=== PATIENT | female | born 1945 | race Caucasian/White ===

== ENCOUNTER 2024-01-21 17:21 | Emergency (ER) | payer OTHER, SELFPAY ==
[2024-01-21 17:45] VITALS: BP 141/68
--- NOTE | 2024-01-21 17:51 | ED.MUSCINJ ---
HPI-Injury
<Sejal Thurston NP - Last Filed: 01/21/24 18:00>
General
Chief Complaint: Fall
Time Seen by Provider: 01/21/24 18:05
<Radha Donovan PA-C - Last Filed: 01/22/24 22:35>
General
Source: patient
Exam Limitations: none
Nursing documentation reviewed up to this point in time: agreed with
History of Present Illness-Injury
Initial Injury comments:
78 y/o F with mild dementia
htn
previous shoulder fracture, not treated surgically, pt refused
here with L facial pain and L shoulder pain/rib pain after fall today
mechanical tripped on carpet
no LOC
no AC
no neck pain
did not pass out, remembers the fall
jaw does not feel displaced
no trouble breathing, no syncope, no hip pain
able to get up and walk
has chronic shoulder fracutre
no weakness or numbness in the arms or legs
ED Provider Triage
<Sejal Thurston NP - Last Filed: 01/21/24 18:00>
-
Patient seen by provider in Triage?: Seen in Triage
Attestation: A medical screening examination has been initiated by a qualified medical provider. Based on the assessment performed at this time, it has been determined that an emergent medical condition may exist and the patient has been informed
that further medical evaluation and possible additional diagnostic testing may be needed.
HPI: 78-year-old female w h/o RA, previous left shoulder injury with limited ROM due to non healing correctly, left ear deafness, no blood thinners, HTN, states she tripped going into her friend's room at 4 p.m., at [facility]
living. Hit left side face on carpeted floor, injured left chest wall and left upper arm. Denies loss of consciousness. Was able to get herself up from floor. Denies neck or back pain has swelling and abrasion left side of face, upper cheek and
outer periorbital area. Denies change in vision. Denies n/v.
GENERAL: Alert , in no apparent distress
EYE: No visual abnormalities.
NECK: Trachea midline
ENT: No visible abnormalities.
LUNGS: No acute respiratory distress
NEUROLOGICAL: Alert and oriented
SKIN: Skin intact. No visible changes.
MUSCULOSKELETAL: Moving extremities normally
PSYCH: Normal and appropriate interaction.
This is a medical evaluation conducted in person to initiate diagnostic evaluation and provide initial therapeutics. Please see further documentation by the treating clinician.
Past History
<Radha Donovan PA-C - Last Filed: 01/22/24 22:35>
Past History
ED Past Medical History: HTN and Other (OA)
Review of Systems
<Radha Donovan PA-C - Last Filed: 01/22/24 22:35>
Review of Systems
Allergies reviewed?: Yes
Phy Exam
<Radha Donovan PA-C - Last Filed: 01/22/24 22:35>
Physical Exam
Physical Exam:
GENERAL: Alert , in no apparent distress
HEAD: no head injury
face: L maxillary/zygomatic swelling and bruising an dtendrness
suprerficial abrasion, no laceration
NECK: no midline tenderness, active ROM intact, no paraspinal muscle tenderness;
EYE: pupils equal and reactive, EOMs intact.
ENT: o/p clr, mmm. no hemotympanum
CARDIAC: Regular rate and rhythm, no edema
LUNGS: Clear breath sounds bilaterally, no acute respiratory distress, no wheezes/rales/rhonchi
ribs: slight left lateral rib tendenress, no bruising, no redness, able to take deep breaths, no splinting
ABDOMEN: Soft, without focal tenderness, no r/g, no cvat
NEUROLOGICAL: Alert and oriented, no focal neuro deficits, CN intact, 5/5 strength, sensation intact
SKIN: Warm and dry,
bruising L arm (humerus)
MUSCULOSKELETAL: L shoulder dec mobiilty, no obvious deformity; some crunching with movement; normal elbow
hips notnender
back midline nontender
no cva tendenress
PSYCH: Normal and appropriate interaction.
Injury Course
<Sejal Thurston NP - Last Filed: 01/21/24 18:00>
Orders/Labs/Results
Orders:
Orders
01/21/24 17:53
CT Facial Bones W/o Iv Contras Urgent
Comment:
Reason For Exam: fall, pain, swelling left cheek, orbit
01/21/24 17:58
Humerus, Left 2 Views [CR Humerus - Left Min 2 Views*] Urgent
Comment:
Reason For Exam: pain after fall
Ribs, Left 3 View W/PA Chest CR [CR Ribs-left 3 Vw W/pa Chest] Urgent
Comment:
Reason For Exam: pain after fall
01/21/24 17:59
Knee, Left 4 or More Views [CR Knee - Left 4 Or More View*] Urgent
Comment:
Reason For Exam: pain after fall
01/21/24 18:13
CT Head W/o Iv Contrast Urgent
Comment:
Reason For Exam: fall hit head
01/21/24 19:12
CR Shoulder, Trauma - Left Urgent
Reason For Exam: left shoulder pain fall
01/21/24 19:16
Ibuprofen [Motrin] 400 mg PO NOW STA
<Radha Donovan PA-C - Last Filed: 01/22/24 22:35>
Orders/Labs/Results
Orders:
Orders
01/21/24 17:53
CT Facial Bones W/o Iv Contras Urgent
Comment:
Reason For Exam: fall, pain, swelling left cheek, orbit
01/21/24 17:58
Humerus, Left 2 Views [CR Humerus - Left Min 2 Views*] Urgent
Comment:
Reason For Exam: pain after fall
Ribs, Left 3 View W/PA Chest CR [CR Ribs-left 3 Vw W/pa Chest] Urgent
Comment:
Reason For Exam: pain after fall
01/21/24 17:59
Knee, Left 4 or More Views [CR Knee - Left 4 Or More View*] Urgent
Comment:
Reason For Exam: pain after fall
01/21/24 18:13
CT Head W/o Iv Contrast Urgent
Comment:
Reason For Exam: fall hit head
01/21/24 19:12
CR Shoulder, Trauma - Left Urgent
Reason For Exam: left shoulder pain fall
01/21/24 19:16
Ibuprofen [Motrin] 400 mg PO NOW STA
<Radha Donovan PA-C - Last Filed: 01/22/24 22:35>
MDM/Problems Addressed
Differential Diagnosis Includes:
rib contusion, rib fracture, facial fracture, contusion, head injury
MDM/Problems Addressed:
78 y/o F
very mild forgetfulness baseline
had mechanical trip and fall around 4pm onto carpet and hit her face and has [place] in her face, left shoulder (chronic from old fracture not surically trated), left ribs and left knee
able to walk
no thinners
no change in mental status, here with daughters who agree
pt has some faical swelling L zygomatic region
normal bite
no hemotympanum
neck nontender full painless rom
L mild rib pain but not signiviant, able to take deep breaths
left humerus mild bruising
limited motion of the shoulder
has chroinc deformity/fracture which is severe, likely old; cxr indep reviewed by me
ct head/face neg
ribs neg for ptx/fx
left knee no fx
ice off and on
return precautions
incentive spiroetry
<Radha Donovan PA-C - Last Filed: 01/22/24 22:35>
*Critical Care Note
Total Time (30-74mins, 75-104mins- exclusive of procedures): Not Applicable
ED Attending Note
<Sejal Thurston NP - Last Filed: 01/21/24 18:00>
-
Portions of this chart may have been created with voice recognition software.� Occasional wrong word or��sound alike� substitutions may have occurred due to the inherent limitations of voice recognition software.
Discharge Plan
Departure
Patient Disposition: Home (Routine Discharge)
Date of Disposition: 01/21/24
Time of Disposition: 21:03
Patient with high blood pressure during this ER visit?: Yes
Condition: Fair
Covid-19: Not Applicable
Discharge Problem:
Fall, chronic shoulder fracture, Contusion of face, Contusion of rib
Instructions: Contusion (DC), Rib fracture or bruised rib - ED discharge instructions, BLOOD PRESSURE
Referrals:
Jun Gabriel MD [Family Provider] - Follow up in 2-3 days
Activity Restrictions/Additional Instructions:
THERE IS NO SIGN OF FRACTURE IN YOUR FACIAL BONES, RIBS, OR KNEE
YOU HAVE A CHRONIC APPEARING FRACTURE IN YOUR SHOULDER
TAKE IBUPROFEN FOR PAIN 2 TIMES A DAY
ICE OFF AND ON TO YOUR FACE
MAKE SURE TO USE THE INCENTIVE SPIROMETER TO TAKE DEEP BREATHS A FEW TIMES EVERY 2 HOURS TO PREVENT PNEUMOMNIA
FOLLOW UP WITH YOUR DOCTOR THIS WEEK
YOUR SHOULDER IS CHRONICALLY SEVERELY FRACTURED; WE DO NOT HAVE THE OLD IMAGES TO COMPARE
FOLLOW UP WITH ORTHOPEDICS [facility]
RETURN FOR ANY CONCERNS
Interventions
Interventions:
*General Assessment Last Done: 01/21/24 17:45
ED- Fall Risk Assessment Last Done: 01/21/24 19:13
*ED COVID-19 Vaccine History Last Done: 01/21/24 19:04
*Nursing Disposition Last Done: 01/21/24 21:19
ED-Musculoskeletal Assessment Last Done: 01/21/24 19:10
ED- Neurological Assessment Last Done: 01/21/24 19:04
ED-Skin Assessment Last Done: 01/21/24 19:23
Discharge Date and Time
Discharge Date/Time: 01/21/24 21:22
Print Language: BELGIAN
[2024-01-21 19:01] VITALS: BP 162/73; BMI 23.8
[2024-01-21] MEDS: MOTRIN 400 MG PO (20:07)
== END 2024-01-21 21:22 | disposition home or self-care (01) ==
LOC: EMR 17:21
PROVIDERS: EMERGENCY PHYSICIAN Emergency Medicine; FAMILY PHYSICIAN Internal Medicine
DX: S42.92XA Fracture of left shoulder girdle, part unspecified, initial encounter for closed fracture (principal); S00.83XA Contusion of other part of head, initial encounter; S20.219A Contusion of unspecified front wall of thorax, initial encounter; W19.XXXA Unspecified fall, initial encounter; M25.512 Pain in left shoulder; F03.A0 Unspecified dementia, mild, without behavioral disturbance, psychotic disturbance, mood disturbance, and anxiety; I10 Essential (primary) hypertension
CPT/HCPCS: 99284; 70450; 70486; 71101; 73030; 73060; 73564

== ENCOUNTER 2024-02-06 12:43 | Inpatient (IN) | payer OTHER, SELFPAY ==
[2024-02-06] VITALS (45 sets, daily range): BP systolic 91–137; BP diastolic 62–96; BMI 24.5; BMI 22.5
--- NOTE | 2024-02-06 08:19 | ED.GENMED ---
History of Present Illness
General
Chief Complaint: Breathing Problem
Time Seen by Provider: 02/06/24 08:15
History of Present Illness
History of Present Illness:
TIME OF INITIAL ENCOUNTER:
HPI: The patient's been having a general functional decline over the last couple of weeks after a fall. Main symptom is shortness of breath but the shortness of breath has been going on for a few weeks. She is found to be in rapid atrial flutter
upon arrival. She has no history of atrial dysrhythmia. She does not see a pick up. Family was concerned of dehydration.
EXAM:
GENERAL: Well appearing in no distress but appears somewhat weak
HEENT: Moist oral mucosa
CARDIOVASCULAR: No murmurs, tachycardic heart rate, regular rhythm, No chest wall tenderness
PULMONARY: No respiratory distress, breath sounds are clear and equal
ABDOMEN: Soft with no peritoneal signs, no tenderness
NEUROLOGIC: Fair strength all extremities, no coordination deficits
PSYCHIATRIC: Appropriate mental status, normal insight and judgement
EXTREMITIES: Nontender, trace bilateral lower extremity edema, moves all extremities equally
SKIN: No rash, no lesions
NUMBER AND COMPLEXITY OF PROBLEMS ADDRESSED AT THE ENCOUNTER
� Chronic conditions affecting care: Pulmonary fibrosis, hep C/cirrhosis, high blood pressure, rheumatoid arthritis
� Acute Exacerbation and/or Progression of Chronic Illness: This is an acute problem
� Differential Diagnosis includes: Atrial dysrhythmia, worsening pulmonary fibrosis, electrolyte abnormality
AMOUNT AND/OR COMPLEXITY OF DATA TO BE REVIEWED AND ANALYZED
� I performed an independent evaluation of and my interpretation is:
EKG: Atrial tachycardia/atrial flutter with ventricular rate of 143
CT:
X-rays: Chest x-ray shows pulmonary fibrosis
Laboratory Studies: White count 8.9, hemoglobin 10.6 with no old to compare
Other:
� Review of other/old records: I reviewed records, the patient had a CAT scan of the face and head 01/21/2024 which were unremarkable; left shoulder deformity on x-ray is chronic over the past year
� Clinical information was obtained by an independent historian: Spoke to daughter
� Prescriptions/Medications Considered but not given:
� Further testing considered but not performed:
RISK OF COMPLICATIONS AND/OR MORBIDITY OR MORTALITY OF PATIENT MANAGEMENT
� Social determinants of health affecting care: Lives at home
� Discussion with other providers: Notify Dr. Garrett of patient's presentation. Planning admission to the hospital�notified Dr. Card
� Escalation of care including admission/observation vs risk of discharge considered: Heart rates found to be in the 140s. She appears to be in atrial flutter. She was given a bolus of Cardizem without much improvement. She
was then given a dose of Lopressor which did improve the heart rates anywhere from the 80s to 120s.
ANY OTHER UPDATES:
10:20 AM: She is found to be hyponatremic.
10:30 AM: Intermittently responding to beta-becka. No significant improvement with calcium channel becka.
Past History
Past History
ED Past Medical History: HTN and Other (OA)
Phy Exam
Physical Exam
Physical Exam:
See HPI
Scores
Heart Failure Risk
Heart Failure Risk Score: Not Applicable
Course
Orders/Labs/Results
Orders:
Orders
02/06/24 08:13
ECG [Electrocardiogram (*1)] Urgent
Reason for Study: Shortness of Breath
EKG- Treatment ONCE
02/06/24 09:04
Complete Blood Count/With Diff Urgent
Comprehensive Metabolic Panel Urgent
Magnesium Urgent
NT-proBNP Urgent
Comment: ADD
Serum Osmolality Urgent
Comment: ADD
TSH Reflex To Free T4 Urgent
Troponin I Urgent
02/06/24 09:07
Diltiazem 125 mg/125 ml Nss [Cardizem] 125 mg in 125 ml .ROUTE .STK-MED
Diltiazem HCl [Cardizem] 25 mg .ROUTE .STK-MED ONE
02/06/24 09:12
Diltiazem HCl [Cardizem] 10 mg IV NOW STA
02/06/24 09:19
Metoprolol [Lopressor] 5 mg .ROUTE .STK-MED ONE
02/06/24 09:21
Metoprolol [Lopressor] 2.5 mg 0.9% Sodium Chloride 50 ml [Nss] 50 ml IV NOW
02/06/24 09:22
Metoprolol [Lopressor] 2.5 mg IV NOW STA
02/06/24 09:30
Diltiazem 125 mg/125 ml Nss [Cardizem] 125 mg in 125 ml IV PER PROTOCOL
Currently infusing. Continue current dose and titrate:: Yes
Titrate to keep:: Heart rate 80-100 bpm
Titrate by mg/hr:: 5 mg/hr
Frequency of titrations (minutes):: 15
Maximum dose in mg/hr:: 15
02/06/24 09:58
Add On- LAB Urgent
Tests Added?: bnp
CR Chest Portable - 1 View Urgent
Comment:
Reason For Exam: sob
Reason Study Needs to be Portable: Patient Unstable
02/06/24 10:00
Add On- LAB Urgent
Tests Added?: serum osm
02/06/24 10:01
0.9% Sodium Chloride 500 ml [Nss] 500 ml IV BOLUS
Ondansetron Injectable [Zofran] 4 mg IV NOW STA
02/06/24 10:21
Metoprolol [Lopressor] 2.5 mg IV NOW STA
Metoprolol [Lopressor] 2.5 mg IV NOW STA
02/06/24 11:22
Osmolality, Random Urine Urgent
Date Specimen was Collected: 02/06/24
Time Specimen was Collected: 10:29
Urinalysis Reflex To Culture Urgent
Date Specimen was Collected: 02/06/24
Time Specimen was Collected: 11:21
Urine Sodium Urgent
Date Specimen was Collected: 02/06/24
Time Specimen was Collected: 10:29
02/06/24 11:26
COVID-19 Antigen Urgent
Source: Nasal Swab
INF RAPID [Influenza A+B Rapid Molecular] Urgent
TAWANNA Source: Nasal Swab
Specimen Description:
02/06/24 11:30
Admit/Transfer Patient As Directed
Co-Sign Provider:
Level of Care: Inpatient admission
Assign to:: IMU- Intermediate Care
Physician / Group: Dr Garcia
Diagnosis: Dr Garcia
Reason for Hospitalization: patient with pulm fibrosis p/w sob and tachycardia.
Expected length of stay greater than two midnights?: Yes
ELOS- Estimated Length of Stay in days: 2
I certify the patient meets the requirements for IP care: Yes
02/06/24 11:31
Add On- LAB Urgent
Tests Added?: UA reflex to culture
PRN Pain Medication Management As Directed
May give lesser potent ordered pain med per pt: Yes
preference::
Protocol:: Medication orders for pain may be administered in a
manner that supports deferring to patient preference
when the pt is:
- Requesting an ordered lesser potent pain medication.
Least to most potent pain medications are defined
as: acetaminophen < NSAID < tramadol < opioids
(morphine, oxycodone, hydromorphone).
- Requesting a lesser dose of the same medication IF
ORDERED.
- Requesting a less intrusive route of administration
if both routes are prescribed by the provider (PO <
IV).
02/06/24 11:34
Code Status As Directed
Resuscitation Status: Full Code
02/06/24 11:36
Influenza A+B Rapid Molecular Routine
TAWANNA Source: Nasal Swab
Specimen Description:
02/06/24 11:37
CARDIOLOGY CONSULT Routine
Consulting Provider: Donald Garrett
Was physician already notified: Yes
Reason for consult: Tachycardia A fib vs Sinus tach/SVT and Dyspnea eval
02/06/24 11:38
PULMONARY CONSULT Routine
Consulting Provider: Ramiro Kaye
Was physician already notified: Yes
Reason for consult: Pulm fibrosis ?pna eval
02/06/24 11:40
NEPHROLOGY CONSULT Routine
Consulting Provider: Arturo Muñoz
Was physician already notified: Yes
Reason for consult: Hyponatremia eval
02/06/24 11:44
Furosemide [Lasix] 40 mg IV NOW STA
02/06/24 11:45
Blood Culture Q30M
TAWANNA Source: Blood/Venous
Specimen Description:
02/06/24 12:00
CefTRIAXone [Rocephin] 1,000 mg IV Q24H
Dexamethasone Sod Phosphate [Decadron] 4 mg IV Q6H
Doxycycline [Vibramycin] 100 mg PO Q12
Sterile Water [Sterile Water For Injection] 10 ml IV Q24H
02/06/24 12:15
Blood Culture Q30M
TA[place]ANNA Source: Blood/Venous
Specimen Description:
02/06/24 13:00
Flush (0.9% Sodium Chloride) [Flush (Nss)] See Dose Instructions IV PER PROTOCOL
Abnormal Lab Results
02/06/24 02/06/24
09:04 11:22
RBC 3.59 L 10^6/uL
(4.20-5.40)
Hgb 10.6 L g/dL
(12.0-16.0)
Hct 31.5 L %
(37.0-47.0)
Absolute Neuts (auto) 7.4 H 10^3/uL
(1.4-6.5)
Absolute Lymphs (auto) 0.5 L 10^3/uL
(1.2-3.4)
Absolute Monos (auto) 0.9 H 10^3/uL
(0.1-0.6)
Neutrophils % 82.9 H %
(42.2-75.2)
Lymphocytes % 5.5 L %
(20.5-51.1)
Monocytes % 9.6 H %
(1.7-9.3)
Sodium 120 L mmol/L
(135-145)
Chloride 88 L mmol/L
(98-107)
Carbon Dioxide 21 L mmol/L
(22-30)
Creatinine 0.4 L mg/dL
(0.6-1.0)
Glucose 100 H mg/dl
(70-99)
Serum Osmolality 255 L mOsm/kg
(275-300)
Calcium 8.2 L mg/dl
(8.4-10.2)
Urine Ketones 1+ A
(Negative)
Urine Sodium 15 L mmol/L
(30-90)
02/06/24 09:04
02/06/24 09:04
Vital Signs
Initial and Last Documented VS:
Initial Vital Signs
Temp Pulse Resp BP Pulse Ox
36.6 C 143 24 125/78 97
02/06/24 08:08 02/06/24 08:08 02/06/24 08:08 02/06/24 08:08 02/06/24 08:08
Last Documented Vital Signs
Temp Pulse Resp BP Pulse Ox
36.6 C 137 23 121/84 95
02/06/24 08:08 02/06/24 12:00 02/06/24 12:00 02/06/24 12:00 02/06/24 12:00
*Critical Care Note
Total Time (30-74mins, 75-104mins- exclusive of procedures): Not Applicable
ED Attending Note
-
Portions of this chart may have been created with voice recognition software.� Occasional wrong word or��sound alike� substitutions may have occurred due to the inherent limitations of voice recognition software.
Discharge Plan
Departure
Patient Disposition: Admit
Date of Disposition: 02/06/24
Time of Disposition: 10:36
Presentation/result/management discussed w/ accepting MD/DO: Hospitalist
Discharge Problem:
Acute hyponatremia
Prescriptions:
No Action
sulfasalazine 500 mg tablet
1,000 mg PO BID
amlodipine 5 mg tablet
5 mg PO DAILY
mycophenolate mofetil 500 mg tablet
1,500 mg PO BID
hydroxychloroquine 200 mg tablet
400 mg PO DAILY
losartan 100 mg tablet
100 mg PO DAILY
furosemide 20 mg Tablet
20 mg PO DAILY
Referrals:
Jun Gabriel MD [Family Provider] -
Interventions
Interventions:
*Risk Screen - Suicide Last Done: 02/06/24 08:08
*General Assessment Last Done: 02/06/24 08:08
*Neglect/Abuse Screening Last Done: 02/06/24 08:08
*ED COVID-19 Vaccine History Last Done: 02/06/24 09:29
ED- Cardiac Assessment Last Done: 02/06/24 09:30
ED- Pulmonary Assessment Last Done: 02/06/24 09:30
Discharge Date and Time
Print Language: TAIWANESE
[2024-02-06] MEDS: CARDIZEM 10 MG IV (09:12)
[2024-02-06 09:22] LABS: % Basophils 0.9 % (0-2); % Eosinophils 0.8 % (0-6); % Immature Granulocytes 0.3 % (0-0.5); % Lymphocytes 5.5 % (20.5-51.1); % Monocytes 9.6 % (1.7-9.3); % Neutrophils 82.9 % (42.2-75.2); Absolute Basophils 0.1 10^3/uL (0-0.2); Absolute Eosinophils 0.1 10^3/uL (0-0.7); Absolute Lymphocytes 0.5 10^3/uL (1.2-3.4); Absolute Monocytes 0.9 10^3/uL (0.1-0.6); Absolute Neutrophils 7.4 10^3/uL (1.4-6.5); Hematocrit 31.5 % (37.0-47.0); Hemoglobin 10.6 g/dL (12.0-16.0); Mean Corp Hgb Conc. 33.7 g/dL (33.0-37.0); Mean Corpuscular Hgb 29.5 pg (27.0-31.0); Mean Corpuscular Volume 87.7 fL (81.0-99.0); Mean Platelet Volume 9.7 fL (7.4-10.4); Nucleated Red Blood Cells % 0 %; Platelet Count 361 10^3/uL (130-400); Red Blood Cell Count 3.59 10^6/uL (4.20-5.40); Red Cell Dist. Width 14.3 % (11.5-14.5); White Blood Cell Count 8.9 10^3/uL (4.8-10.8)
[2024-02-06] MEDS: LOPRESSOR 2.5 MG IV ×4 (09:22→23:37)
[2024-02-06] MEDS: CARDIZEM 125 IV (09:39)
[2024-02-06 09:45] LABS: ALT (SGPT) 14 U/L (0-35); AST (SGOT) 25 U/L (14-36); Albumin 3.8 g/dl (3.5-5.0); Alkaline Phosphatase 111 U/L (38-126); Blood Urea Nitrogen 14 mg/dl (7-17); Calcium 8.2 mg/dl (8.4-10.2); Carbon Dioxide 21 mmol/L (22-30); Chloride 88 mmol/L (98-107); Estimated Creatinine Clearance 74 ml/min; Glucose 100 mg/dl (70-99); Magnesium 1.9 mg/dl (1.6-2.3); Potassium 4.7 mmol/L (3.5-5.1); Sodium 120 mmol/L (135-145); Total Bilirubin 0.6 mg/dl (0.2-1.3); Total Protein 6.6 g/dl (6.3-8.2); eGFR > 60.00
[2024-02-06 09:54] LABS: Troponin I < 0.012 ng/ml
[2024-02-06 10:13] LABS: TSH Reflex To Free T4 2.55 uIU/ml (0.47-4.68)
[2024-02-06] MEDS: NSS 500 IV (10:20)
[2024-02-06 10:58] LABS: Osmolality Serum 255 mOsm/kg (275-300)
[2024-02-06 10:59] LABS: NT-proBNP 1650 pg/ml
--- NOTE | 2024-02-06 11:40 | HPS.HSE ---
Addendum entered and electronically signed by Truman Garcia MD 02/06/24 16:40:
Cardiology recommended cont Cardizem drip and start on heparin drip for A flutter/fib RVR.
Original Note:
Family Physician
-
Family Physician: Jun Gabriel
Chief Complaint
-
sob
History of Present Illness
Patient 79 years old female with past medical history of pulmonary fibrosis, rheumatoid arthritis, cirrhosis, hypertension, came into the hospital with shortness of breath nausea and vomiting. Patient has been not feeling well over the last couple
of days with nausea and vomiting and patient has been feeling 'winded' over the last several days as well and more pronounced today. Patient feels short of breath progressively getting worse associated with short amount of walking distances
associated with lower extremity edema. No chest pain. She does have dry cough. She denies fevers or chills. Denies abdominal pain. Denies diarrhea. In the ER, she was noted to be tachycardic and she was given beta-blockers and also calcium
channel blockers with mild improvement of her heart rate. Blood pressure stable. She was also noted to have a sodium of 120 and BNP of 1650 and troponin less than 0.012. Found to have abnormal chest x-ray. She was referred to hospitalist service
for further evaluation.
Medical History
Past Medical History
Past Medical History: Reports Other (Hypertension, rheumatoid arthritis, liver cirrhosis, autoimmune hepatitis, hepatitis C, mild cognitive deficits, pulmonary fibrosis.)
Past Surgical History: Reports None
Social History
Tobacco: Former Smoker
Alcohol: None
Drug: None
Family History
Family History: Not pertinent
Allergies / Home Medications
Allergies reflects when Allergies were last updated in [facility].
Home Medications with original date entered in [facility]
Allergy/Medication List:
Allergies
Allergy/AdvReac Type Severity Reaction Status Date / Time
No Known Allergies Allergy Verified 02/06/24 08:08
Home Medications
amlodipine 5 mg tablet 5 mg PO DAILY Blood Pressure 02/06/24
furosemide 20 mg tablet 20 mg PO DAILY Fluid Retention/Swelling 02/06/24
hydroxychloroquine 200 mg tablet 400 mg PO DAILY Autoimmune Disorder 02/06/24
losartan 100 mg tablet 100 mg PO DAILY Blood Pressure 02/06/24
mycophenolate mofetil 500 mg tablet 1,500 mg PO BID Autoimmune Disorder 02/06/24
sulfasalazine 500 mg tablet 1,000 mg PO BID Autoimmune Disorder 02/06/24
Review of Systems
-
A 12 point ROS was completed and negative except as noted: Yes
Physical Exam
Vital Signs
Vital Signs
Temp Pulse Resp BP Pulse Ox
97.9 F 137 23 121/88 97
02/06/24 08:08 02/06/24 11:30 02/06/24 11:30 02/06/24 11:30 02/06/24 11:15
Physical exam:
General: Acutely ill
HEENT: Normocephalic, Atraumatic and Moist Mucous Membranes
Respiratory: Bilateral coarse crackles; Negative Wheezes or Rhonchi
Cardiac: Irregular rate and rhythm, tachycardic, and S1/S2
GI: Soft, Nontender and Nondistended
Musculoskeletal: No Clubbing, No Cyanosis. B/L LE Edema
Neuro: Awake, Alert and Oriented, no gross neurological deficit
Psych: Calm
Physical Exam
General: Other
Laboratory Results
-
02/06/24 09:04
02/06/24 09:04
Laboratory Results
Total Bilirubin 0.6 mg/dl (0.2-1.3) 02/06/24 09:04
AST 25 U/L (14-36) 02/06/24 09:04
ALT 14 U/L (0-35) 02/06/24 09:04
Alkaline Phosphatase 111 U/L (38-126) 02/06/24 09:04
Troponin I < 0.012 ng/ml 02/06/24 09:04
Data Reviewed
-
Diagnostic Radiology: Image Personally Visualized and interpreted
Lab Data: Labs Reviewed by me
Impression/Plan
-
IMPRESSION:
Patient 79 years old female with multiple comorbidities came into the hospital with dyspnea and nausea and vomiting and found to have tachyarrhythmia and multiple acute abnormalities. Patient at increased risk of morbidity mortality due to acute
presentation and comorbidities therefore she will need to be treated in the hospital and monitor accordingly.
PLAN:
Dyspnea/hypoxic respiratory insufficiency:
Unclear etiology but suspect multifactorial related to pneumonia,underlying pulmonary fibrosis, tachyarrhythmia, and heart failure
Seen and reviewed chest x-ray
Start IV dexamethasone 4 mg every 6 hours for now
Obtain blood cultures
Start empiric antibiotics IV Rocephin and doxycycline
Diuretics as needed--> plan doing IV Lasix 40 mg x 1 and reevaluate
Pulmonary consult-discussed with pulmonary via [place] text
Tachyarrhythmias:
A flutter/A-fib with rapid ventricular response versus sinus tachycardia/atrial tachycardia.
Continue targeting pulmonary issues at first
Rate control as tolerated
Cardiology consult-discussed with cardiology via [place] text
Severe hyponatremia:
Unclear if hypervolemia or hypovolemia although suspect the former
Follow-up urine sodium and urine osmolarity and serum osmolarity
Nephrology consult-discussed with nephrology via [place] text today
I was going to give IV Lasix today but nephrology would like me to hold off until further testing and reevaluate.
Nausea and vomiting:
Suspect viral gastroenteritis
Monitor for recurrent symptoms
Encourage oral hydration for now but will reevaluate
Anemia:
No signs of active bleeding
Continue to monitor hemoglobin closely
Hypertension:
Continue amlodipine furosemide and losartan with holding parameters
Monitor blood pressure adjust medications accordingly
Rheumatoid arthritis/pulmonary fibrosis/autoimmune hepatitis with liver cirrhosis:
Continue mycophenolate 1500 mg twice a day and hydroxychloroquine 400 mg p.o. daily and sulfasalazine 1000 mg twice a day
DVT prophylaxis:
Lovenox SQ
CODE STATUS:
Full code
Time spent 75 minutes
[2024-02-06 11:47] LABS: Osmolality Urine 482 mOsm/kg (300-900)
[2024-02-06 11:48] LABS: Urine Albumin Trace (Neg - Trace); Urine Bilirubin Negative (Negative); Urine Character Clear (Clear); Urine Color Amber; Urine Glucose Negative (Negative); Urine Ketone 1+ (Negative); Urine Leukocyte Negative (Negative); Urine Nitrite Negative (Negative); Urine Occult Blood Negative (Negative); Urine Specific Gravity 1.025 (<1.030); Urine Urobilinogen Negative (Neg - 1+)
[2024-02-06 11:51] LABS: COVID-19 Antigen Negative (Negative)
[2024-02-06 12:01] LABS: Urine Sodium 15 mmol/L (30-90)
[2024-02-06] MEDS: ROCEPHIN 1000 MG IV (13:55)
[2024-02-06] MEDS: DECADRON 4 MG IV ×3 (13:55→23:37)
[2024-02-06] MEDS: STERILE WATER FOR INJECTION 10 ML IV (13:56)
[2024-02-06] MEDS: VIBRAMYCIN 100 MG PO ×2 (13:56→20:31)
--- NOTE | 2024-02-06 14:23 | W.CON.NEPH ---
Consultation
-
Date/Time Consultation Requested: February 06, 2024 at 11:30 AM
Date/Time Consultation Performed: February 06, 2024 at 2:30 PM
Requesting Provider: Dr. Garcia
Performing Provider: Dr. Arturo Muñoz
Reason for Consultation: hyponatremia
Medical History
-
Chief Complaint: hyponatremia with nausea vomiting
History of Present Illness:
79 years old female with past medical history of pulmonary fibrosis, rheumatoid arthritis, cirrhosis, hypertension, came into the hospital with shortness of breath nausea and vomiting. Patient's daughter was at the bedside to help with history as
she is having difficulty with memory.
renal consult for hyponatremia 120
recent history had a fall about two weeks ago she lost her balance. She appears to take NSAIDs on a chronic basis at least three times per week sometimes more. Since the fall two weeks ago she's been declining clinically per daughter.
her daughter informed me that she was told by her tilesetter that potassium was lower early January but unable to quantify
Past Medical History
pulmonary fibrosis, rheumatoid arthritis, cirrhosis secondary to autoimmune hepatitis, hypertension,
Social History
non-smoker no alcohol used
Family History
no renal disease
Allergies / Home Medications
Allergy/AdvReac Type Severity Reaction Status Date / Time
No Known Allergies Allergy Verified 02/06/24 08:08
�Medication �Instructions �Recorded �Confirmed �Type
amlodipine 5 mg tablet 5 mg PO DAILY Blood Pressure 02/06/24 02/06/24 History
furosemide 20 mg tablet 20 mg PO DAILY Fluid 02/06/24 02/06/24 History
Retention/Swelling
hydroxychloroquine 200 mg tablet 400 mg PO DAILY Autoimmune Disorder 02/06/24 02/06/24 History
losartan 100 mg tablet 100 mg PO DAILY Blood Pressure 02/06/24 02/06/24 History
mycophenolate mofetil 500 mg tablet 1,500 mg PO BID Autoimmune Disorder 02/06/24 02/06/24 History
sulfasalazine 500 mg tablet 1,000 mg PO BID Autoimmune Disorder 02/06/24 02/06/24 History
Review of Systems
-
shortness of breath, decreased appetite
All other systems: Negative unless noted
Physical Exam
Vital Signs
Vital Signs
Temp Pulse Resp BP Pulse Ox
97.9 F 138 25 121/90 96
02/06/24 08:08 02/06/24 13:00 02/06/24 13:00 02/06/24 13:00 02/06/24 13:00
Lab Results
WBC 8.9 10^3/uL (4.8-10.8) 02/06/24 09:04
RBC 3.59 10^6/uL (4.20-5.40) L 02/06/24 09:04
Hgb 10.6 g/dL (12.0-16.0) L 02/06/24 09:04
Hct 31.5 % (37.0-47.0) L 02/06/24 09:04
Plt Count 361 10^3/uL (130-400) 02/06/24 09:04
Sodium 120 mmol/L (135-145) L 02/06/24 09:04
Potassium 4.7 mmol/L (3.5-5.1) 02/06/24 09:04
Chloride 88 mmol/L (98-107) L 02/06/24 09:04
Carbon Dioxide 21 mmol/L (22-30) L 02/06/24 09:04
BUN 14 mg/dl (7-17) 02/06/24 09:04
Creatinine 0.4 mg/dL (0.6-1.0) L 02/06/24 09:04
eGFR > 60.00 02/06/24 09:04
Glucose 100 mg/dl (70-99) H 02/06/24 09:04
Calcium 8.2 mg/dl (8.4-10.2) L 02/06/24 09:04
Jua-X-Iwlhwfznhlx Pept 1650 pg/ml 02/06/24 09:04
Albumin 3.8 g/dl (3.5-5.0) 02/06/24 09:04
Physical Exam
General no acute distress
HEENT no cephalic atraumatic extraocular muscle intact no scleral icterus no JVD neck supple
lungs rhonchi
heart regular S1-S2 positive
abdomen soft nontender positive bowel sounds
extremities edema plus one bilateral
Neurologically nonfocal alert and oriented x 3
Skin no lesions no abrasions no petechiae
Psych normal affect no bizarre behavior
Data Reviewed
-
Radiology: Image Personally Visualized and interpreted ( pulmonary fibrosis with small infiltrate)
Labs: Labs Reviewed by me
Assessment/Plan
-
79 years old female with past medical history of pulmonary fibrosis, rheumatoid arthritis, cirrhosis, hypertension, came into the hospital with shortness of breath nausea and vomiting. Patient's daughter was at the bedside to help with history as
she is having difficulty with memory.
renal consult for hyponatremia 120
recent history should a fall about two weeks ago she lost her balance. She appears to take NSAIDs on a chronic basis at least three times per week sometimes more. Since the fall two weeks ago she's been declining clinically per daughter.
her daughter informed me that she was told by her tilesetter that potassium was lower early January but unable to quantify
impression:
hyponatremia.
Chronic pulmonary fibrosis.
Nausea vomiting.
Chronic pain status post left shoulder fracture previous two most recent fall with chronic NSAID use
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
plan:
she status post 500 mL of normal saline in the ER
Montserrat < 15 with urine osmolality of 482
Admitting sodium 120 appears to be secondary to a decrease PO intake.
will hold Lasix despite some mild edema/ BNP 1600 Does not appear to be an heart failure
BMP Q4 hours with avoiding overcorrection 6-8 mEq the first 24 hours
bmp now
will follow
please call if serum sodium corrects to greater than 126 by tomorrow morning
discussed with primary hospitalist
--- NOTE | 2024-02-06 15:40 | CON.CAR ---
Consultation
Consultation Request
Date/Time Consultation Requested: February 06, 2024
Date/Time Consultation Performed: February 06, 2024
Requesting Provider: Dr Garcia
Performing Provider: Dr Garrett
Reason for Consultation: Atrial flutter
Medical History
-
Chief Complaint: Failure to thrive, dyspnea
History of Present Illness:
She is an 79-year-old white female with past medical history of pulmonary fibrosis, rheumatoid arthritis, hepatitis C/cirrhosis, hypertension, osteoporosis who presents with progressive weakness and feeling poorly over the last few days. She also
had nausea vomiting and some dyspnea on exertion that was apparently more significant over the last 24 hours. She admits to a dry cough. She denies chest pain. In the emergency room she was found to be tachycardic with atrial flutter heart rate
130s to 140s. She received IV Cardizem and IV beta-blockers with some improvement in her heart rate. Her blood pressures remained stable. She was noted to be hyponatremic with sodium 120, proBNP was 1650 troponin was negative. Chest x-ray was
abnormal showing chronic bilateral interstitial pulmonary opacities consistent with chronic fibrosis with possible superimposed aspiration/pneumonia. No pleural effusion. Cardiology was consulted given her arrhythmia. Her daughter helps with
history. The patient lives in [facility].
Her daughter states she had an echo in July 2023 at [facility] for a heart murmur. Results are unavailable.
Past medical history:
Pulmonary fibrosis
Rheumatoid arthritis
Hepatitis C/cirrhosis
Hypertension
Osteoporosis
Detached retina
Appendectomy
Mild cognitive defect
Social History
Tobacco: Former Smoker (She quit 50 years ago)
Alcohol: None
Drug: None
Living: Assisted Living ([facility] in [place])
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
Family History
Family History: Reviewed & Not Pertinent (Sister had an aortic valve issue and age 83)
Allergies / Home Medications
Allergy/AdvReac Type Severity Reaction Status Date / Time
No Known Allergies Allergy Verified 02/06/24 08:08
�Medication �Instructions �Recorded �Confirmed �Type
amlodipine 5 mg tablet 5 mg PO DAILY Blood Pressure 02/06/24 02/06/24 History
furosemide 20 mg tablet 20 mg PO DAILY Fluid 02/06/24 02/06/24 History
Retention/Swelling
hydroxychloroquine 200 mg tablet 400 mg PO DAILY Autoimmune Disorder 02/06/24 02/06/24 History
losartan 100 mg tablet 100 mg PO DAILY Blood Pressure 02/06/24 02/06/24 History
mycophenolate mofetil 500 mg tablet 1,500 mg PO BID Autoimmune Disorder 02/06/24 02/06/24 History
sulfasalazine 500 mg tablet 1,000 mg PO BID Autoimmune Disorder 02/06/24 02/06/24 History
Review of Systems
-
History Source: Patient
All other systems: Negative unless noted
Constitutional: Fatigue
Respiratory: Trouble Breathing
Physical Exam
Vital Signs
Temp Pulse Resp BP Pulse Ox
97.9 F 138 25 121/90 96
02/06/24 08:08 02/06/24 13:00 02/06/24 13:00 02/06/24 13:00 02/06/24 13:00
physical examination
General: No acute distress, AAOX3, frail appearing
HEENT: Hard of hearing
neck: Negative JVD
Heart: Tachycardic, Negative S3 positive S1/S2, Negative S4, No murmur
Lungs: CTA b/l, negative wheezes/rales/rhonchi
Abd: Positive BS, NT/ND, neg rebound/rigidity/guarding
Ext: Negative cyanosis/clubbing/edema
Neuro: nonfocal
Lab Results
02/06/24 09:04
Troponin I < 0.012 ng/ml 02/06/24 09:04
Kdq-H-Ittzgnyvarp Pept 1650 pg/ml 01/01/25 09:04
Impression / Plan
-
.
Impression:
Failure to thrive
Dyspnea on exertion
Nausea and vomiting
Hyponatremia
Atrial flutter with rapid ventricular response
History Pulmonary fibrosis
History rheumatoid arthritis
History Hepatitis C/cirrhosis
Hypertension
Osteoporosis
Mild cognitive defects
Plan:
She has Multifactorial dyspnea
Atrial flutter with rapid ventricular response. This could be contributing to her dyspnea however she has multifactorial dyspnea including known pulmonary fibrosis.
Continue to work on rate control. IV Cardizem.
Discussed consideration for anticoagulation. If she remains in atrial flutter, would consider IV heparin therapy. It is unclear if she would be a adequate candidate for oral anticoagulation.
Patient and daughter are undecided
PT OT evaluation.
Check echocardiogram to evaluate for structural heart disease. Obtain records from [facility] echo.
Continue pulmonary toilet. IV dexamethasone
Pulmonary to evaluate.
Blood cultures pending
Empiric antibiotics started by primary service
Continue supportive care.
Hyponatremia evaluation from nephrology. Nephrology holding diuresis.
May hold amlodipine and losartan as needed to give room for blood pressure if more prolonged IV Cardizem is needed.
Discussed with daughter at bedside.
Data Reviewed
-
EKG: Tracing Personally Visualized and interpreted
Labs: Labs Reviewed by me
Old Records: Requested
[2024-02-06 16:34] LABS: Blood Urea Nitrogen 15 mg/dl (7-17); Carbon Dioxide 21 mmol/L (22-30); Chloride 89 mmol/L (98-107); Estimated Creatinine Clearance 74 ml/min; Glucose 92 mg/dl (70-99); Sodium 121 mmol/L (135-145); eGFR > 60.00
--- NOTE | 2024-02-06 17:09 | PTCARENOTE ---
164: Patient arrived to IMU. Cardizem gtt running at 10mL/hr with HR in the 130's. Cardizem gtt turned to 15mL/hr per order. BP stable. Patient on RA. AOx2 confused to place. Patient is forgetful. Bed alarm on and audible. Call banda within reach,
bed in lowest position, and bed of wheels locked.
--- NOTE | 2024-02-06 17:18 | PTCARENOTE ---
Dr. Garrett made aware that patients cardizem gtt is at 15mL/hr and patients HR is 137 bpm. BP is 125/57. Patient resting comfortably in bed. Verbal order from Dr. Garrett for IV lopressor Q6 hours sent to pharmacy. Care ongoing.
[2024-02-06] MEDS: LASIX PO (17:23)
[2024-02-06] MEDS: NORVASC 5 MG PO (18:00)
[2024-02-06] MEDS: COZAAR 100 MG PO (18:00)
[2024-02-06] MEDS: PLAQUENIL 400 MG PO (18:01)
[2024-02-06 18:14] LABS: Hemoglobin 9.9 g/dL (12.0-16.0); Mean Corp Hgb Conc. 34.1 g/dL (33.0-37.0); Mean Corpuscular Hgb 29.3 pg (27.0-31.0); Mean Corpuscular Volume 85.8 fL (81.0-99.0); Mean Platelet Volume 9.7 fL (7.4-10.4); Platelet Count 374 10^3/uL (130-400); Red Blood Cell Count 3.38 10^6/uL (4.20-5.40); Red Cell Dist. Width 14.3 % (11.5-14.5); White Blood Cell Count 8.8 10^3/uL (4.8-10.8)
[2024-02-06 18:26] LABS: APTT 35.5 Sec (23.4-35.0)
[2024-02-06] MEDS: HEPARIN 25000 UNITS/250 ML IV (18:34)
[2024-02-06] MEDS: AZULFIDINE 1000 MG PO (19:15)
[2024-02-06] MEDS: AZULFIDINE PO (20:31)
[2024-02-06 21:24] LABS: Blood Urea Nitrogen 16 mg/dl (7-17); Calcium 7.9 mg/dl (8.4-10.2); Carbon Dioxide 18 mmol/L (22-30); Chloride 89 mmol/L (98-107); Estimated Creatinine Clearance 74 ml/min; Glucose 167 mg/dl (70-99); Potassium 4.6 mmol/L (3.5-5.1); Sodium 121 mmol/L (135-145); eGFR > 60.00
[2024-02-06] MEDS: CELLCEPT 1500 MG PO (21:34)
[2024-02-07] VITALS (18 sets, daily range): BP systolic 89–142; BP diastolic 60–126; BMI 24.3
[2024-02-07] MEDS: CARDIZEM 125 IV (00:57)
[2024-02-07 01:00] LABS: APTT 46.3 Sec (23.4-35.0)
[2024-02-07 01:20] LABS: Blood Urea Nitrogen 17 mg/dl (7-17); Calcium 7.8 mg/dl (8.4-10.2); Carbon Dioxide 19 mmol/L (22-30); Chloride 90 mmol/L (98-107); Estimated Creatinine Clearance 74 ml/min; Glucose 134 mg/dl (70-99); Potassium 4.9 mmol/L (3.5-5.1); Sodium 121 mmol/L (135-145); eGFR > 60.00
[2024-02-07 04:36] LABS: % Immature Granulocytes 0.7 % (0-0.5); % Lymphocytes 4.5 % (20.5-51.1); % Neutrophils 90.8 % (42.2-75.2); Absolute Lymphocytes 0.3 10^3/uL (1.2-3.4); Absolute Monocytes 0.2 10^3/uL (0.1-0.6); Absolute Neutrophils 5.5 10^3/uL (1.4-6.5); Hematocrit 30.5 % (37.0-47.0); Mean Corp Hgb Conc. 32.8 g/dL (33.0-37.0); Mean Corpuscular Hgb 28.6 pg (27.0-31.0); Mean Corpuscular Volume 87.1 fL (81.0-99.0); Mean Platelet Volume 9.5 fL (7.4-10.4); Nucleated Red Blood Cells % 0 %; Platelet Count 388 10^3/uL (130-400); Red Cell Dist. Width 14.2 % (11.5-14.5)
[2024-02-07 04:57] LABS: Blood Urea Nitrogen 17 mg/dl (7-17); Calcium 7.8 mg/dl (8.4-10.2); Carbon Dioxide 20 mmol/L (22-30); Chloride 90 mmol/L (98-107); Estimated Creatinine Clearance 74 ml/min; Glucose 129 mg/dl (70-99); Potassium 4.9 mmol/L (3.5-5.1); Sodium 120 mmol/L (135-145); Uric Acid 3.3 mg/dl (2.5-6.2); eGFR > 60.00
[2024-02-07] MEDS: LOPRESSOR 2.5 MG IV ×3 (05:07→17:13)
[2024-02-07] MEDS: DECADRON 4 MG IV ×3 (05:08→17:12)
[2024-02-07 05:26] LABS: Cortisol, Random 4.8 ug/dl
--- NOTE | 2024-02-07 06:25 | PTCARENOTE ---
Received pt at change of shift. Pt AAOx2; forgetful. AFlutter on monitor in the 120-130s. Cardizem gtt running at 15 mg/hr. Heparin gtt running at 1100 units/hr. Crackles in b/l bases; diminished throughout. Q4H BMP - Na+ is still low at 120.
Pt unable to void on own. Bladder scanned patient for 460. Notified [employer]ABLE [employer]OL. Ordered to straight cath patient with 450 ml out. Resting in bed with call banda in reach; bed alarm active.
--- NOTE | 2024-02-07 07:54 | W.PN.HOSP.TC ---
Addendum entered and electronically signed by Truman Garcia MD 02/07/24 15:43:
Updated daughter over the phone today.
Original Note:
Today's Communication/Plan
-
Antibiotics. Steroids. Amiodarone.
Assessment / Plan
Assessment / Plan
Physical exam:
General: Acutely ill
HEENT: Normocephalic, Atraumatic and Moist Mucous Membranes
Respiratory: Bilateral coarse crackles; Negative Wheezes or Rhonchi
Cardiac: Irregular rate and rhythm, tachycardic, and S1/S2
GI: Soft, Nontender and Nondistended
Musculoskeletal: No Clubbing, No Cyanosis. B/L LE Edema
Neuro: Awake, Alert and Oriented, no gross neurological deficit
Psych: Calm
A/P:
Dyspnea/hypoxic respiratory insufficiency:
Unclear etiology but suspect multifactorial related to pneumonia,underlying pulmonary fibrosis, tachyarrhythmia, and ?heart failure
Seen and reviewed chest x-ray
Continue IV dexamethasone 4 mg every 6 hours for now
Follow-up blood cultures but negative so far
Continue empiric antibiotics IV Rocephin and doxycycline
Pulmonary consulted-awaiting further input
Atrial flutter with rapid ventricular response:
On Cardizem drip--> cardiology will switch to amiodarone
On heparin drip
Plan for echocardiogram
Cardiology consult appreciated
Continue cardiac monitoring
Severe hyponatremia:
Sodium remains at 120 today
Nephrology consult appreciated
Plan to start on 3% saline today by nephrology
Hypertension:
Hold amlodipine furosemide and losartan and will reevaluate when to restart down the road
Monitor blood pressure adjust medications accordingly
Hypotension:
Hold amlodipine furosemide and losartan and will reevaluate when to restart down the road
Nausea and vomiting:
Suspect viral gastroenteritis
Monitor for recurrent symptoms
Encourage oral hydration for now but will reevaluate
Anemia:
No signs of active bleeding
Hemoglobin stable at 10 today
Continue to monitor hemoglobin closely
Rheumatoid arthritis/pulmonary fibrosis/autoimmune hepatitis with liver cirrhosis:
Continue mycophenolate 1500 mg twice a day and hydroxychloroquine 400 mg p.o. daily and sulfasalazine 1000 mg twice a day
Chronic left shoulder fracture and falls:
Avoid NSAIDs due to hyponatremia
Tylenol prn
DVT prophylaxis:
On heparin drip
CODE STATUS:
Full code
Time spent 54-minutes
Anticipated Discharge: 24 - 48 hours
Subjective/Interval History
-
Date of Service: February 07, 2024
Patient with less shortness of breath overall. Some cough. Still persistently tachycardic. On room air. Afebrile
Objective Data
-
Labs:
Laboratory Results
02/06/24 02/07/24 02/07/24
20:38 00:35 04:17
WBC 6.0
Hgb 10.0 L
Hct 30.5 L
Plt Count 388
APTT 46.3 H
Sodium 121 L 121 L 120 L
Potassium 4.6 4.9 4.9
Chloride 89 L 90 L 90 L
Carbon Dioxide 18 L 19 L 20 L
BUN 16 17 17
Creatinine 0.5 L 0.4 L 0.4 L
Glucose 167 H 134 H 129 H
Calcium 7.9 L 7.8 L 7.8 L
02/07/24
07:15
WBC
Hgb
Hct
Plt Count
APTT Pending
Sodium
Potassium
Chloride
Carbon Dioxide
BUN
Creatinine
Glucose
Calcium
Vital Signs:
Vital Signs
Temp Pulse Resp BP Pulse Ox
97.6 F 129 22 142/70 85
02/07/24 03:00 02/07/24 05:07 01/02/25 05:07 02/07/24 05:07 02/07/24 03:00
I&O
02/06/24 02/07/24 02/08/24
06:59 06:59 06:59
Output Total 450 / 450
Balance -450 / -450
[2024-02-07] MEDS: PLAQUENIL 400 MG PO (08:23)
[2024-02-07] MEDS: AZULFIDINE 1000 MG PO ×2 (08:23→20:49)
[2024-02-07] MEDS: NORVASC PO (08:24)
[2024-02-07] MEDS: VIBRAMYCIN 100 MG PO ×2 (08:25→20:49)
[2024-02-07] MEDS: COZAAR PO (08:25)
[2024-02-07] MEDS: CELLCEPT 1500 MG PO ×2 (08:25→20:49)
[2024-02-07 08:45] LABS: APTT 32.6 Sec (23.4-35.0)
--- NOTE | 2024-02-07 08:56 | CON.PUL ---
Consultation
Consultation Request
Date/Time Consultation Requested: 02/06/20241137
Date/Time Consultation Performed: 02/07/2024837
Requesting Provider: Dr. Garcia
Performing Provider: Dr. Vasquez
Reason for Consultation: Suspected ILD
Medical History
-
Chief Complaint: SOB
History of Present Illness:
79-year-old female with a past medical history of RA, pulmonary fibrosis, autoimmune hepatitis c/b cirrhosis, hypertension, and history of hepatitis C who presents with SOB. Patient apparently fell about 2 weeks ago and has been declining since.
She does follow with rheumatology for history of RA/ILD. She has been feeling 'winded' over the last several days which worsened on the day of the ER arrival. She also has lower extremity edema. Also endorses dry cough, no chest pain, fevers or
chills, or abdominal pain/diarrhea. Initially in the ER she was afebrile to 97.9 �F, tachycardic to 143 (A-fib with RVR/a-flutter), tachypneic to 24 breaths/min, BP 125 or 78 and saturating 97% on room air. Labs showed Hb 10.6, serum sodium 120,
serum chloride 88, serum bicarbonate level 21, proBNP 1650, urine sodium low at 15, and COVID-19 antigen negative. Flu A/B also negative and blood cultures collected. CXR showed bilateral interstitial pulmonary opacities with bibasilar patchy
opacities. Initial EKG showed A-flutter 2:1 conduction and she required Cardizem drip in the ER and also given 500 cc bolus of NS 0.9%. She was admitted to the IMU and now pulmonary services consulted for additional management/recommendations.
When I saw the patient, she was resting in bed in no acute distress. Patient's daughter, Yaquelin, was at bedside. Patient usually follows with Roni modi with Dr. Shine. He usually follows her about 1�2 times a year. According to the
daughter, the patient's recent PFTs were stable. Patient currently in no acute distress, on room air breathing comfortably and saturating 98%. Heart rate 124, and BP 103/77. Patient has been more confused as of late, and the daughter thinks that
she is developing dementia. Patient has not had a cough recently.
PMHx: Reported history of pulmonary fibrosis, RA, cirrhosis due to autoimmune hepatitis, hypertension, history of hepatitis C, mild cognitive defect
PSHx: Noncontributory
Past Medical History
Past Medical History: Other (Above as per HPI)
Past Surgical History: Other (Above as per HPI)
Social History
Tobacco: Former Smoker
Alcohol: None
Drug: None
Family History
Family History: Reviewed & Not Pertinent
Allergies / Home Medications
Allergies
Allergy/AdvReac Type Severity Reaction Status Date / Time
No Known Allergies Allergy Verified 02/06/24 08:08
Home Medications
�Medication �Instructions �Recorded �Confirmed �Last Taken �Type
amlodipine 5 mg tablet 5 mg PO DAILY Blood Pressure 02/06/24 02/06/24 Unknown History
furosemide 20 mg tablet 20 mg PO DAILY Fluid 02/06/24 02/06/24 Unknown History
Retention/Swelling
hydroxychloroquine 200 mg tablet 400 mg PO DAILY Autoimmune Disorder 02/06/24 02/06/24 Unknown History
losartan 100 mg tablet 100 mg PO DAILY Blood Pressure 02/06/24 02/06/24 Unknown History
mycophenolate mofetil 500 mg tablet 1,500 mg PO BID Autoimmune Disorder 02/06/24 02/06/24 Unknown History
sulfasalazine 500 mg tablet 1,000 mg PO BID Autoimmune Disorder 02/06/24 02/06/24 Unknown History
Review of Systems
-
Unable to Obtain full review of systems at this time due to: Other (Confusion)
Vitals / Labs / Diagnostic Testing
Vital Signs
Temp Pulse Resp BP Pulse Ox
97.6 F 127 16 97/65 95
02/07/24 03:00 02/07/24 08:24 02/07/24 08:24 02/07/24 08:25 02/07/24 08:24
Lab Data
02/07/24 04:17
02/07/24 04:17
Laboratory Results
02/06/24 02/07/24 02/07/24
17:57 00:35 08:18
APTT 35.5 H 46.3 H 32.6
Microbiology
02/06/24 11:26 Nasal Swab Influenza Types A & B (LINDSEY) - Final
Negative for Influenza A & B, NAAT
Negative results must be combined with clinical observations
and patient history.
Nucleic Acid Amplification test (NAAT)performed on the
[employer] platform.
Diagnostic Testing:
Physical Exam
-
HEENT: Normocephalic and Anicteric
Cardiovascular: S1/S2, Peripheral Edema (+1 lower extremity edema at the ankles) and Other (Tachycardic)
Respiratory: Wheeze (negative), Rales (Bilateral), Rhonchi (negative) and Non-Labored Respirations
GI: Soft, Non Distended, Non Tender and Normal Bowel Sounds
Neurology: Awake, Alert and Tremors (negative)
Skin: Warm and Dry
General: Respiratory Distress (negative), Comfortable, Fever (negative) and Chills (negative)
Assessment
-
Assessment: 79-year-old female with a past medical history of RA, pulmonary fibrosis, autoimmune hepatitis c/b cirrhosis, hypertension, and history of hepatitis C who presents with SOB. Patient apparently fell about 2 weeks ago and has been
declining since. She does follow with rheumatology for history of RA/ILD. She has been feeling 'winded' over the last several days which worsened on the day of the ER arrival. She also has lower extremity edema. Also endorses dry cough, no chest
pain, fevers or chills, or abdominal pain/diarrhea. Initially in the ER she was afebrile to 97.9 �F, tachycardic to 143 (A-fib with RVR/a-flutter), tachypneic to 24 breaths/min, BP 125 or 78 and saturating 97% on room air. Labs showed Hb 10.6,
serum sodium 120, serum chloride 88, serum bicarbonate level 21, proBNP 1650, urine sodium low at 15, and COVID-19 antigen negative. Flu A/B also negative and blood cultures collected. CXR showed bilateral interstitial pulmonary opacities with
bibasilar patchy opacities. Initial EKG showed A-flutter 2:1 conduction and she required Cardizem drip in the ER and also given 500 cc bolus of NS 0.9%. She was admitted to the IMU and now pulmonary services consulted for additional
management/recommendations.
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
Impression:
#Acute respite failure due to ILD exacerbation vs pneumonia; component of alveolar/interstitial edema in setting of A-fib with RVR also possible
#A-fib with RVR/A-flutter requiring Cardizem drip (now discontinued)
#Anemia
#Hypochloremic, hyponatremia likely due to reduced PO intake with recent vomiting over the last 2�3 nights
#Reported history of RA with pulmonary fibrosis
#History of autoimmune hepatitis complicated by cirrhosis
#History of hypertension
Plan:
- Patient has reported history of RA with pulmonary fibrosis, hence this is consistent with systemic autoimmune rheumatic disease (SARD)�ILD
- I have no prior imaging of the chest to confirm chronicity of current radiographic abnormalities; also have no prior PFTs to confirm presence of restrictive lung disease
- CXR from 02/06/2024 shows bilateral reticular opacities/patchy opacification with interstitial/perihilar prominence, concerning for ILD exacerbation versus pneumonia/pneumonitis
- Continue with systemic steroids and wean as she clinically improves � currently on Decadron 4 mg IV q6hr
- While on high-dose steroids, maintain euglycemia with goal BG >100 and <180
- Continue with empiric antibiotics, currently on ceftriaxone/doxycycline
- Blood cultures collected on 02/06/2024 � NGTD
- Continue with immunosuppressive home medications, mycophenolate + sulfasalazine
- Continue with home Lasix dosing
- Obtain prior medical records from her kettleman at [facility] (Dr. Shine)
- Goal HR<110 s/p cardizem gtt
- Continue IV lopressor q6hr while holding parameters
- Heparin gtt; continue PO amiodarone
- PO lasix, trend I/O and UOP
- Cardiology consulted and recs appreciated
- Echo pending per cardiology
- Continue to trend serum sodium while on 3% NS
- Urine sodium is low at 15, essentially ruling out SIADH
- Nephrology consulted and recs appreciated
- Avoid overcorrection of serum sodium
- While on heparin drip, trend aPTT and monitor Hb, transfusing to keep Hb >7 g/dL
- Maintain SpO2 >90-94% with supplemental O2 as needed
- Incentive spirometer encouraged q1hr while awake
- Replete electrolytes with K>4, Mg>2
- prn nebulized bronchodilators � patient not currently bronchospastic
- DVT ppx: heparin gtt
Pulmonary service will continue to follow along. Patient will follow-up with her primary kettleman, Dr. Shine, at [facility].
Data:
CXR 02/06/2024:
Bilateral interstitial pulmonary opacities most compatible with chronic fibrosis. Mild patchy opacities in the lung bases raising the possibility for superimposed aspiration/pneumonia in the appropriate clinical setting.
No large pleural effusion or pneumothorax. The cardiac silhouette is mildly enlarged. Chronic degenerative changes of the spine. Chronic displaced left humeral neck fracture.
Total time spent today was 57 minutes for this encounter. Time includes reviewing laboratory test/imaging results, reviewing pertinent medical records, obtaining and reviewing medical history, performing an appropriate exam, ordering medications,
tests and procedures. Time also includes documentation of this encounter, coordinating patient care and communicating with other healthcare professionals. Total time does not include separately billed tests performed on this date of service.
--- NOTE | 2024-02-07 09:20 | W.PN.NEPH.PH ---
Today's Communication / Plan
-
3%
Assessment/Plan
-
Assessment
hyponatremia.
Chronic pulmonary fibrosis.
Nausea vomiting.
Chronic pain status post left shoulder fracture previous two most recent fall with chronic NSAID use
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
Plan
3% NaCl today
serial BMP
incentive spirometry
-
-
Date of Service: February 07, 2024
CC / HPI / ROS
-
Chief Complaint:
hyponatremia
History of Present Illness:
Na still low at 120
BP low stable
acidosis persists 20
Review of Systems:
slightly SOB but c/o being sedentary
no CP
Labs
-
Labs:
WBC 6.0 10^3/uL (4.8-10.8) 02/07/24 04:17
RBC 3.50 10^6/uL (4.20-5.40) L 02/07/24 04:17
Hgb 10.0 g/dL (12.0-16.0) L 02/07/24 04:17
Hct 30.5 % (37.0-47.0) L 02/07/24 04:17
Plt Count 388 10^3/uL (130-400) 02/07/24 04:17
Sodium 120 mmol/L (135-145) L 02/07/24 04:17
Potassium 4.9 mmol/L (3.5-5.1) 02/07/24 04:17
Chloride 90 mmol/L (98-107) L 02/07/24 04:17
Carbon Dioxide 20 mmol/L (22-30) L 02/07/24 04:17
BUN 17 mg/dl (7-17) 02/07/24 04:17
Creatinine 0.4 mg/dL (0.6-1.0) L 02/07/24 04:17
eGFR > 60.00 02/07/24 04:17
Glucose 129 mg/dl (70-99) H 02/07/24 04:17
Calcium 7.8 mg/dl (8.4-10.2) L 02/07/24 04:17
Olu-X-Ostpvkzdqeb Pept 1650 pg/ml 02/06/24 09:04
Albumin 3.8 g/dl (3.5-5.0) 02/06/24 09:04
Physical Exam
-
Vital Signs:
Vital Signs
Temp Pulse Resp BP Pulse Ox
97.5 F 127 16 97/65 95
02/07/24 07:05 02/07/24 08:24 02/07/24 08:24 02/07/24 08:25 02/07/24 08:24
Cardiovascular:: Regular rate and rhythm
Respiratory:: Bilateral: Coarse
Lung Excursion:: Normal
Abdomen:: Nontender and Soft
Bowel Sounds:: Normal
Extremity Edema:: None: Bilateral:
[2024-02-07] MEDS: PACERONE 400 MG PO ×3 (10:52→22:00)
[2024-02-07] MEDS: SODIUM CHLORIDE 3% 250 IV (10:53)
--- NOTE | 2024-02-07 11:11 | W.PN.CARDCBS ---
Today's Communication / Plan
-
Will discontinue IV Cardizem and start amiodarone 400 mg p.o. 3 times daily loading
Follow QT interval with amiodarone and hydroxychloroquine
Continue IV steroids
Check echo
Continue IV heparin for now but unclear if patient with long-term Eliquis candidate
Impression / Plan
-
.
Impression:
Failure to thrive
Dyspnea on exertion
Nausea and vomiting
Hyponatremia
Atrial flutter with rapid ventricular response
History Pulmonary fibrosis
History rheumatoid arthritis
History Hepatitis C/cirrhosis
Hypertension
Osteoporosis
Mild cognitive defects
Plan:
She remains with rapid atrial flutter with poor heart rate control
IV access is an issue and will stop IV Cardizem and load with amiodarone 400 mg p.o. 3 times daily
Will need to watch QT interval with amiodarone and hydroxychloroquine
Continue IV heparin for now and unclear if patient is a candidate for Eliquis long-term
Check echocardiogram
Continue IV steroids per pulmonary as patient has known pulmonary fibrosis.
Nephrology is going to start 3% normal saline solution for hyponatremia
Discussed with nursing
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
Subjective
Date of Service: February 07, 2024
No complaints
Objective
Labs:
02/07/24 04:17
Labs
Hgb 10.0 g/dL (12.0-16.0) L 02/07/24 04:17
Hct 30.5 % (37.0-47.0) L 02/07/24 04:17
Plt Count 388 10^3/uL (130-400) 02/07/24 04:17
APTT 32.6 Sec (23.4-35.0) 02/07/24 08:18
Sodium 120 mmol/L (135-145) L 02/07/24 04:17
Potassium 4.9 mmol/L (3.5-5.1) 02/07/24 04:17
BUN 17 mg/dl (7-17) 02/07/24 04:17
Creatinine 0.4 mg/dL (0.6-1.0) L 02/07/24 04:17
Glucose 129 mg/dl (70-99) H 02/07/24 04:17
Troponins
02/06/24
09:04
Troponin I < 0.012
Vital Signs and I&O:
Vital Signs
Temp Pulse Resp BP Pulse Ox
97.5 F 130 16 97/63 95
02/07/24 07:05 02/07/24 10:52 02/07/24 08:24 02/07/24 10:52 02/07/24 08:24
Vital Signs
Temp Pulse Resp BP Pulse Ox
97.5 F 130 16 97/63 95
02/07/24 07:05 02/07/24 10:52 02/07/24 08:24 02/07/24 10:52 02/07/24 08:24
Intake & Output
02/05/24 02/06/24 02/07/24 02/08/24
06:59 06:59 06:59 06:59
Output Total 450 / 450
Balance -450 / -450
Physical Exam
Physical Exam
General: Well developed, well nourished in NAD.
Neck: Supple, no JVD, HJR, carotids +2 B/L, no bruits bilaterally.
Heart: Non displaced PMI, regular, tachycardic, no murmurs, No S3, S4, no rubs.
Lungs: Scattered rhonchi
Extremities: No clubbing, cyanosis or edema bilaterally.
Neuro: Grossly nonfocal, awake, alert and oriented x3.
[2024-02-07] MEDS: STERILE WATER FOR INJECTION 10 ML IV (12:48)
[2024-02-07] MEDS: ROCEPHIN 1000 MG IV (12:48)
--- NOTE | 2024-02-07 15:27 | CM ---
Addendum entered by Chelsie Goss RN 02/07/24 15:45:
[facility] if needed: ph [phone], fax [phone].
Original Note:
Patient from [facility] with Hx left shoulder fracture and falls. Elevated HR today. Room air. Regular diet. Receiving Heparin gtt, IV Abx, IV Decadron. Per nurse; confused.
Spoke with patient's daughter KINZA Higgins;
the patient resides alone at [facility] for the past 15 months, and resides at [facility].
The patient is confused at baseline with severe short term memory loss, per daughter.
She has been weak lately and not eating much.
The patient has been fairly independent in ADLs and ambulation without using an assistive device. She feeds herself.
She cannot manage a RW due to Fx shoulder 18 months ago and Hx RA, however can self propel her w/c.
DME - rollator, w/c
Prior [facility]
No prior SNF.
PCP - Jun Gabriel
Pharmacy - [facility]
Gisela shares contact for [facility] - Elise Bailey [phone].
Received phone call from Skip Goins (ph [phone]); she was seen by their nurse August 2023 and then PT until Sep 2023. Provided clinical update. Referral can be placed in [facility] as needed.
Message to Dr Garcia requesting PT/OT Lennie when medically appropriate.
Plan follow up after seen by PT/OT.
[2024-02-07 16:08] LABS: Blood Urea Nitrogen 21 mg/dl (7-17); Calcium 8.3 mg/dl (8.4-10.2); Carbon Dioxide 20 mmol/L (22-30); Chloride 91 mmol/L (98-107); Estimated Creatinine Clearance 74 ml/min; Glucose 165 mg/dl (70-99); Potassium 4.8 mmol/L (3.5-5.1); Sodium 123 mmol/L (135-145); eGFR > 60.00
[2024-02-07 17:14] LABS: APTT 40.1 Sec (23.4-35.0)
[2024-02-07] MEDS: HEPARIN 25000 UNITS/250 ML IV (17:20)
--- NOTE | 2024-02-07 18:33 | PTCARENOTE ---
Addendum entered by Annabelle Gunn RN 02/07/24 19:06:
IV Heparin gtt infusing, adjusted per PTT results currently at 1500units/hr. IV 3% NS infused- lab studies all completed.
Original Note:
REceived this am BP 99/65, HR 130 consistantly. AM Cozaar and Norvasc held per parameters. Notified Dr. Yeboah and orders obtained to Dc IV Cardizem gtt and give loading dose po Amiodarone. Rates did drop to 110s most afternoon however received
2 nd dose and is still 120s.
A/A confused- thinks she is at her apartment. Other times very appropriate. LC/ RA. Tele is atrial flutter. Got up to [facility] had large BM, few drops of urine. Bladder scanned 98ml. Will recheck prior to shift change if able. Daughter at bedside.
[2024-02-07 21:36] LABS: Glucose - Point of Care 163 mg/dl (70-99)
[2024-02-08] VITALS (16 sets, daily range): BP systolic 91–121; BP diastolic 62–79; BMI 23.2
[2024-02-08] MEDS: LOPRESSOR 2.5 MG IV ×2 (00:05→06:24)
[2024-02-08] MEDS: DECADRON 4 MG IV ×5 (00:07→23:54)
[2024-02-08 01:02] LABS: APTT 80.4 Sec (23.4-35.0)
--- NOTE | 2024-02-08 02:40 | PTCARENOTE ---
Addendum entered by Tatum Cho 02/08/24 03:15:
This RN attempted to give PO risperidal per PRE KINDERGARTEN TEACHER order. Pt bit this RN while this RN was attempting to administer. Pt continues with confusion/agitation, yelling out, pulling at wires, and threatening staff. PRE KINDERGARTEN TEACHER placed order for IV haldol, awaiting
pharmacy verification.
Original Note:
Pt awoke confused, disoriented to time and place. Pt kept repeating 'Where are all of my things?' This RN attempted reorientation several times. Pt was not receptive to reorientation, remained confused and disoriented to time and place. Pt became
agitated and combative, pulling at IVs, removing cardiac leads, and attempting to get OOB, attempting to hit and bite staff. This RN and assisting RNs assisted pt back to bed and placed b/l wrist restraints per PRE KINDERGARTEN TEACHER order. Bed alarm remains in place
for pt safety. Q2T schedule in place to prevent skin breakdown. Heparin gtt remains in place, see worklist documentation.
[2024-02-08] MEDS: HALDOL 1 MG IV (03:31)
[2024-02-08 04:32] LABS: Hematocrit 28.3 % (37.0-47.0); Hemoglobin 9.9 g/dL (12.0-16.0); Mean Corpuscular Hgb 29.7 pg (27.0-31.0); Mean Platelet Volume 9.5 fL (7.4-10.4); Platelet Count 363 10^3/uL (130-400); Red Blood Cell Count 3.33 10^6/uL (4.20-5.40); Red Cell Dist. Width 14.3 % (11.5-14.5); White Blood Cell Count 9.8 10^3/uL (4.8-10.8)
[2024-02-08 05:04] LABS: Blood Urea Nitrogen 23 mg/dl (7-17); Calcium 7.7 mg/dl (8.4-10.2); Carbon Dioxide 20 mmol/L (22-30); Chloride 94 mmol/L (98-107); Estimated Creatinine Clearance 74 ml/min; Glucose 140 mg/dl (70-99); Potassium 4.5 mmol/L (3.5-5.1); Sodium 123 mmol/L (135-145); eGFR > 60.00
[2024-02-08] MEDS: HEPARIN 25000 UNITS/250 ML IV (08:42)
--- NOTE | 2024-02-08 08:43 | W.PN.PUL3 ---
Today's Communication / Plan
-
PO Amio load as per cardiology
Systemic steroids with Decadron: start 4 mg IV q8hr tomorrow
Antibiotics
PO Lasix
Continue home immunosuppressive's with CellCept + sulfasalazine
Heart rate control with goal HR <110
Replete K >4, Mg>2
Up OOB as tolerated
Pulmonary service will continue to follow along
Assessment
-
Assessment: 79-year-old female with a past medical history of RA, pulmonary fibrosis, autoimmune hepatitis c/b cirrhosis, hypertension, and history of hepatitis C who presents with SOB. Patient apparently fell about 2 weeks ago and has been
declining since. She does follow with rheumatology for history of RA/ILD. She has been feeling 'winded' over the last several days which worsened on the day of the ER arrival. She also has lower extremity edema. Also endorses dry cough, no chest
pain, fevers or chills, or abdominal pain/diarrhea. Initially in the ER she was afebrile to 97.9 �F, tachycardic to 143 (A-fib with RVR/a-flutter), tachypneic to 24 breaths/min, BP 125 or 78 and saturating 97% on room air. Labs showed Hb 10.6,
serum sodium 120, serum chloride 88, serum bicarbonate level 21, proBNP 1650, urine sodium low at 15, and COVID-19 antigen negative. Flu A/B also negative and blood cultures collected. CXR showed bilateral interstitial pulmonary opacities with
bibasilar patchy opacities. Initial EKG showed A-flutter 2:1 conduction and she required Cardizem drip in the ER and also given 500 cc bolus of NS 0.9%. She was admitted to the IMU and now pulmonary services consulted for additional
management/recommendations.
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
Impression:
#Acute respite failure due to ILD exacerbation vs pneumonia; component of alveolar/interstitial edema in setting of A-fib with RVR also possible
#A-fib with RVR/A-flutter requiring Cardizem drip (now discontinued)
#Anemia
#Hypochloremic, hyponatremia likely due to reduced PO intake with recent vomiting over the last 2�3 nights
#Reported history of RA with pulmonary fibrosis
#History of autoimmune hepatitis complicated by cirrhosis
#History of hypertension
Plan:
- Patient has reported history of RA with pulmonary fibrosis, hence this is consistent with systemic autoimmune rheumatic disease (SARD)�ILD
- I have no prior imaging of the chest to confirm chronicity of current radiographic abnormalities; also have no prior PFTs to confirm presence of restrictive lung disease
- CXR from 02/06/2024 shows bilateral reticular opacities/patchy opacification with interstitial/perihilar prominence, concerning for ILD exacerbation versus pneumonia/pneumonitis
- Continue with systemic steroids and wean as she clinically improves � currently on Decadron 4 mg IV q6hr --> can start to wean down to 4mg IV q8hr tomorrow
- While on high-dose steroids, maintain euglycemia with goal BG >100 and <180
- Continue with empiric antibiotics, currently on ceftriaxone/doxycycline
- Blood cultures collected on 02/06/2024 � NGTD
- Continue with immunosuppressive home medications: mycophenolate + sulfasalazine
- Continue with home Lasix dosing
- Obtain prior medical records from her water purification chemist at [place] (Dr. Shine)
- Goal HR<110 s/p cardizem gtt
- Continue IV lopressor q6hr while holding parameters
- Heparin gtt now DC'd; continue PO amiodarone load per cardiology
- PO lasix, trend I/O and UOP
- Cardiology consulted and recs appreciated
- Echo obtained today shows reduced LVEF at 43% with moderate MR, moderate aortic stenosis and moderate pericardial effusion
- Continue to trend serum sodium while on 3% NS
- Urine sodium is low at 15 (02/06/2024), essentially ruling out SIADH
- Nephrology consulted and recs appreciated
- Avoid overcorrection of serum sodium
- Defer AC to cardiology
- Transfuse as needed to keep Hb >7 g/dL
- Maintain SpO2 >90-94% with supplemental O2 as needed
- Incentive spirometer encouraged q1hr while awake
- Replete electrolytes with K>4, Mg>2
- prn nebulized bronchodilators � patient not currently bronchospastic
- DVT ppx
Pulmonary service will continue to follow along. Patient will follow-up with her primary water purification chemist, Dr. Shine, at [place].
Data:
CXR 02/06/2024:
Bilateral interstitial pulmonary opacities most compatible with chronic fibrosis. Mild patchy opacities in the lung bases raising the possibility for superimposed aspiration/pneumonia in the appropriate clinical setting.
No large pleural effusion or pneumothorax. The cardiac silhouette is mildly enlarged. Chronic degenerative changes of the spine. Chronic displaced left humeral neck fracture.
Transthoracic echocardiogram 02/08/2024:
Normal left ventricular chamber size. Normal left ventricular wall thickness.
Mildly reduced left ventricular systolic function. Left ventricular ejection
fraction is 43% by Roberts's method. Ejection fraction might be difficult to
ascertain due to to rapid atrial flutter. Diastolic function indeterminate due
to atrial fibrillation.
Thickened mitral valve leaflets. Mitral valve opens normally. Moderate mitral
regurgitation.
Trileaflet aortic valve. Calcified aortic valve. Thickened aortic valve with
restricted leaflet motion. Moderate aortic stenosis with peak/mean gradients
across the aortic valve are 21/12 mmHg. Using an LVOT diameter of 2.0 cm, the
DAPHNE = 1.1 cm2. Mild aortic regurgitation.
Moderate pericardial effusion without evidence of hemodynamic compromise. In
the anterior space it measures 1.8 cm. and posterior to the left heart it
measures 2.4 cm.
Total time spent today was 37 minutes for this encounter. Time includes reviewing laboratory test/imaging results, reviewing pertinent medical records, obtaining and reviewing medical history, performing an appropriate exam, ordering medications,
tests and procedures. Time also includes documentation of this encounter, coordinating patient care and communicating with other healthcare professionals. Total time does not include separately billed tests performed on this date of service.
Subjective Data
-
Date of Service:
Date of Service: February 08, 2024
Chief Complaint: Pulmonary Follow Up
Subjective:
Patient seen and evaluated today at bedside. She denies shortness of breath or chest pain. Currently, heart rate 131, BP 105/71 and saturating 97% on room air. Denies chest pain, CABALLERO, abdominal pain, nausea, fevers or chills.
Review of Systems
General: Other (Negative unless mentioned above)
Objective Data
Data Reviewed
Vital Signs / I&O / Oxygen:
Vital Signs
Temp Pulse Resp BP Pulse Ox
97.5 F 123 18 116/70 94
02/08/24 04:06 02/08/24 07:00 02/08/24 07:00 02/08/24 06:24 02/08/24 07:00
Intake and Output
02/07/24 02/08/24 02/09/24
06:59 06:59 06:59
Intake Total 200 / 200
Output Total 450 / 450 428 / 428
Balance -450 / -450 -228 / -228
SaO2 94
Nasal Cannula flow liters per 96
minute
Physical Exam
General: Respiratory Distress (negative), Comfortable, Chills (negative) and Sweats (negative)
HEENT: Normocephalic and Anicteric
Cardiovascular: Peripheral Edema (+1 lower extremity pitting edema bilaterally) and Other (Regular and tachycardic)
Respiratory: Wheeze (negative), Crackles (Bilateral), Rhonchi (negative), Accessory Resp Muscle Use (negative) and Stridor (negative)
GI: Soft, Non Distended, Non Tender and Normal Bowel Sounds
Neurology: Awake, Alert and Tremors (negative)
Skin: Warm, Dry, Cyanosis (negative) and Jaundice (negative)
Labs/Micro/Reports
Lab Data
02/08/24 04:22
02/08/24 04:22
Laboratory Results
02/07/24 02/07/24 02/08/24
15:41 16:49 00:24
APTT Cancelled 40.1 H 80.4 H
02/08/24 02/08/24
08:34 10:00
APTT 75.1 H Cancelled
Microbiology
02/06/24 14:13 Blood/Venous Blood Culture - Preliminary
No Growth in 24 hours- Final report to follow
02/06/24 14:13 Blood/Venous Blood Culture - Preliminary
No Growth in 24 hours- Final report to follow
02/06/24 11:26 Nasal Swab Influenza Types A & B (LINDSEY) - Final
Negative for Influenza A & B, NAAT
Negative results must be combined with clinical observations
and patient history.
Nucleic Acid Amplification test (NAAT)performed on the
The car easily beat NOW platform.
[2024-02-08] MEDS: AZULFIDINE 1000 MG PO ×2 (08:44→20:39)
[2024-02-08] MEDS: PACERONE 400 MG PO ×3 (08:45→21:22)
[2024-02-08] MEDS: PLAQUENIL 400 MG PO (08:45)
[2024-02-08] MEDS: VIBRAMYCIN 100 MG PO ×2 (08:45→20:39)
[2024-02-08] MEDS: CELLCEPT 1500 MG PO ×2 (08:45→20:39)
[2024-02-08 09:09] LABS: APTT 75.1 Sec (23.4-35.0)
[2024-02-08 09:55] LABS: Glucose - Point of Care 128 mg/dl (70-99)
--- NOTE | 2024-02-08 10:21 | W.PN.HOSP.TC ---
Today's Communication/Plan
-
IV heparin drip. IV antibiotics. IV steroids. Amiodarone
Assessment / Plan
Assessment / Plan
Physical exam:
General: Acutely ill
HEENT: Normocephalic, Atraumatic and Moist Mucous Membranes
Respiratory: Bilateral coarse crackles; Negative Wheezes or Rhonchi
Cardiac: Irregular rate and rhythm, tachycardic, and S1/S2
GI: Soft, Nontender and Nondistended
Musculoskeletal: No Clubbing, No Cyanosis. B/L LE Edema
Neuro: Awake, Alert and Oriented, no gross neurological deficit
Psych: Calm
A/P:
Dyspnea/hypoxic respiratory insufficiency:
Unclear etiology but suspect multifactorial related to pneumonia,underlying pulmonary fibrosis, tachyarrhythmia, and ?heart failure
Seen and reviewed chest x-ray
Continue IV dexamethasone 4 mg every 6 hours for now
Follow-up blood cultures but negative so far
Continue empiric antibiotics IV Rocephin and doxycycline
Pulmonary consulted-appreciated input
Discussed with family yesterday
Atrial flutter with rapid ventricular response:
On Cardizem drip--> cardiology switched to amiodarone, continue loading dose
On heparin drip
Plan for echocardiogram
Cardiology consult appreciated
Continue cardiac monitoring
Severe hyponatremia:
Sodium remains at 123 today
Nephrology consult appreciated
Plan to start on 3% saline today by nephrology
Hypertension:
Hold amlodipine furosemide and losartan and will reevaluate when to restart down the road
Monitor blood pressure adjust medications accordingly
Hypotension:
Hold amlodipine furosemide and losartan and will reevaluate when to restart down the road
Nausea and vomiting:
Suspect viral gastroenteritis
Monitor for recurrent symptoms
Encourage oral hydration for now but will reevaluate
Anemia:
No signs of active bleeding
Hemoglobin stable at 10 today
Continue to monitor hemoglobin closely
Rheumatoid arthritis/pulmonary fibrosis/autoimmune hepatitis with liver cirrhosis:
Continue mycophenolate 1500 mg twice a day and hydroxychloroquine 400 mg p.o. daily and sulfasalazine 1000 mg twice a day
Chronic left shoulder fracture and falls:
Avoid NSAIDs due to hyponatremia
Tylenol prn
DVT prophylaxis:
On heparin drip
CODE STATUS:
Full code
Time spent 54-minutes
Anticipated Discharge: > 48 hours
Subjective/Interval History
-
Date of Service: February 08, 2024
Patient feels better, although still tachycardic, afebrile. No chest pain
Objective Data
-
Labs:
Laboratory Results
02/08/24 02/08/24 02/08/24
00:24 04:22 08:34
WBC 9.8
Hgb 9.9 L
Hct 28.3 L
Plt Count 363
APTT 80.4 H 75.1 H
Sodium 123 L
Potassium 4.5
Chloride 94 L
Carbon Dioxide 20 L
BUN 23 H
Creatinine 0.5 L
Glucose 140 H
Calcium 7.7 L
02/08/24
10:00
WBC
Hgb
Hct
Plt Count
APTT Cancelled
Sodium
Potassium
Chloride
Carbon Dioxide
BUN
Creatinine
Glucose
Calcium
Vital Signs:
Vital Signs
Temp Pulse Resp BP Pulse Ox
97.5 F 123 18 116/70 94
02/08/24 04:06 02/08/24 07:00 02/08/24 07:00 02/08/24 06:24 02/08/24 07:00
I&O
02/07/24 02/08/24 02/09/24
06:59 06:59 06:59
Intake Total 200 / 200
Output Total 450 / 450 428 / 428
Balance -450 / -450 - / -
--- NOTE | 2024-02-08 11:01 | W.PN.CARDCBS ---
Today's Communication / Plan
-
Increase Lopressor for heart rate control of atrial flutter
Continue amiodarone loading
Continue IV heparin for now but may not be a long-term Eliquis candidate
Impression / Plan
-
.
Impression:
Failure to thrive
Dyspnea on exertion
Nausea and vomiting
Hyponatremia
Atrial flutter with rapid ventricular response
History Pulmonary fibrosis
History rheumatoid arthritis
History Hepatitis C/cirrhosis
Hypertension
Osteoporosis
Mild cognitive defects
Plan:
Heart rate control remains suboptimal despite amiodarone loading with 40 mg p.o. 3 times daily started on 02/07/2024
Will increase IV Lopressor to 5 mg IV every 6 hours
Continue IV heparin for now but unclear if patient is a candidate for Eliquis long-term
Check echocardiogram
Continue IV steroids per pulmonary as patient has known pulmonary fibrosis.
Nephrology managing hyponatremia
Discussed with nursing
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
Subjective
Date of Service: February 08, 2024
No complaints but appears confused
Objective
Labs:
02/08/24 04:22
02/08/24 04:22
Labs
Hgb 9.9 g/dL (12.0-16.0) L 02/08/24 04:22
Hct 28.3 % (37.0-47.0) L 02/08/24 04:22
Plt Count 363 10^3/uL (130-400) 02/08/24 04:22
APTT Cancelled 02/08/24 10:00
Sodium 123 mmol/L (135-145) L 02/08/24 04:22
Potassium 4.5 mmol/L (3.5-5.1) 02/08/24 04:22
BUN 23 mg/dl (7-17) H 02/08/24 04:22
Creatinine 0.5 mg/dL (0.6-1.0) L 02/08/24 04:22
Glucose 140 mg/dl (70-99) H 02/08/24 04:22
Troponins
02/06/24
09:04
Troponin I < 0.012
Vital Signs and I&O:
Vital Signs
Temp Pulse Resp BP Pulse Ox
97.5 F 123 18 116/70 94
02/08/24 07:05 02/08/24 07:00 02/08/24 07:00 02/08/24 06:24 02/08/24 07:00
Vital Signs
Temp Pulse Resp BP Pulse Ox
97.5 F 123 18 116/70 94
02/08/24 07:05 02/08/24 07:00 02/08/24 07:00 02/08/24 06:24 02/08/24 07:00
Intake & Output
02/06/24 02/07/24 02/08/24 02/09/24
06:59 06:59 06:59 06:59
Intake Total 200 / 200
Output Total 450 / 450 428 / 428
Balance -450 / -450 -228 / -228
Physical Exam
Physical Exam
General: Awake but confused
Neck: Supple, no JVD, HJR, carotids +2 B/L, no bruits bilaterally.
Heart: Non displaced PMI, regular,, tachycardic, no murmurs, No S3, S4, no rubs.
Lungs: Scattered rhonchi
Abdomen: Normal bowel sounds, soft, non-tender, non-distended.
Extremities: No clubbing, cyanosis or edema bilaterally.
Neuro: Awake but confused
[2024-02-08 12:31] LABS: Glucose - Point of Care 211 mg/dl (70-99)
[2024-02-08] MEDS: LOPRESSOR 5 MG IV ×3 (12:38→23:54)
[2024-02-08] MEDS: STERILE WATER FOR INJECTION 10 ML IV (12:39)
[2024-02-08] MEDS: ROCEPHIN 1000 MG IV (12:39)
--- NOTE | 2024-02-08 14:34 | W.PN.NEPH.PH ---
Today's Communication / Plan
-
HTS
Assessment/Plan
-
Assessment
hyponatremia.
Chronic pulmonary fibrosis.
Nausea vomiting.
Chronic pain status post left shoulder fracture previous two most recent fall with chronic NSAID use
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
Afib
Plan:
Hyponatremia- ADH mediated U osmo 482, U na low 15 suggest prerenal
3% NaCl today again
sodium only mild improvement
check BMP later
Afib per cards
encourage solute intake
follow bladder scan
d/w nursing
-
-
Date of Service: February 08, 2024
CC / HPI / ROS
-
Chief Complaint:
hyponatremia
History of Present Illness:
Na still low at 123
BP low stable
acidosis persists 20
hb stable at 9.9
UOP minimal , cr 0.5, PVR 350cc
Review of Systems:
no active sob
feels tachycardia
no dizziness
no [pain
no CP
Labs
-
Labs:
WBC 9.8 10^3/uL (4.8-10.8) 02/08/24 04:22
RBC 3.33 10^6/uL (4.20-5.40) L 02/08/24 04:22
Hgb 9.9 g/dL (12.0-16.0) L 02/08/24 04:22
Hct 28.3 % (37.0-47.0) L 02/08/24 04:22
Plt Count 363 10^3/uL (130-400) 02/08/24 04:22
Sodium 123 mmol/L (135-145) L 02/08/24 04:22
Potassium 4.5 mmol/L (3.5-5.1) 02/08/24 04:22
Chloride 94 mmol/L (98-107) L 02/08/24 04:22
Carbon Dioxide 20 mmol/L (22-30) L 02/08/24 04:22
BUN 23 mg/dl (7-17) H 02/08/24 04:22
Creatinine 0.5 mg/dL (0.6-1.0) L 02/08/24 04:22
eGFR > 60.00 02/08/24 04:22
Glucose 140 mg/dl (70-99) H 02/08/24 04:22
Calcium 7.7 mg/dl (8.4-10.2) L 02/08/24 04:22
Xrs-R-Oxhydrnzvjj Pept 1650 pg/ml 02/06/24 09:04
Albumin 3.8 g/dl (3.5-5.0) 02/06/24 09:04
Physical Exam
-
Vital Signs:
Vital Signs
Temp Pulse Resp BP Pulse Ox
97.8 F 121 20 107/73 97
02/08/24 11:05 02/08/24 14:00 02/08/24 14:00 02/08/24 14:00 02/08/24 08:00
Cardiovascular:: Irregular rate and rhythm
Respiratory:: Bilateral: Coarse
Lung Excursion:: Normal
Abdomen:: Nontender and Soft
Extremity Edema:: None: Bilateral: (trace)
Llanes Catheter: No
--- NOTE | 2024-02-08 15:06 | CM ---
Patient from [facility] with Hx left shoulder fracture and falls. Na 123. A flutter. Receiving Heparin gtt, PO Amiodarone, IV Decadron, IV Abx. PO/OT Evals pending.
Spoke with Elise, Abattoir Manager, [facility] (ph [phone]); clinical update provided. They are unable to accept the patient back over the weekend as they do not have a nurse on the weekend, therefore the soonest they
could accept the patient back is on 02/10. Call Elise Sunday if possible d/c. They can accept the patient back if her mobility is close to her baseline mobility of independent in ambulation, otherwise she would need to go to SNF.
Plan follow up after seen by PT/OT.
Plan [facility] to [facility] if returning to [facility].
[2024-02-08] MEDS: SODIUM CHLORIDE 3% 250 IV (15:56)
--- NOTE | 2024-02-08 16:17 | W.PN.UPDATE ---
Update Note
Progress Note Update
Echocardiogram with moderate pericardial effusion. There is no evidence of tamponade. Will discontinue heparin and repeat echo on 02/11/2024
[2024-02-08 17:11] LABS: Glucose - Point of Care 155 mg/dl (70-99)
--- NOTE | 2024-02-08 19:35 | PTCARENOTE ---
OOB to chair for a few hours this am. AAO to self, forgetful and repetitive but cooperative with all care. Restraints removed this am. Bladder scanned x2 today PVR approx 300ml. No straight cath required see flowsheet. Urine is turbid yellow.
Appetite fair- poor. Daughter states that has been an issue for a while now. Bed chair alarms engaged set off 2 times.
[2024-02-08 21:48] LABS: Blood Urea Nitrogen 27 mg/dl (7-17); Calcium 8.2 mg/dl (8.4-10.2); Carbon Dioxide 21 mmol/L (22-30); Chloride 96 mmol/L (98-107); Estimated Creatinine Clearance 74 ml/min; Glucose 146 mg/dl (70-99); Potassium 4.3 mmol/L (3.5-5.1); Sodium 126 mmol/L (135-145); eGFR > 60.00
--- NOTE | 2024-02-08 23:16 | PTCARENOTE ---
Upon initial assessment of orders, heparin gtt ordered to be stopped, gtt removed at 19:00. Education provided, however pt is very forgetful. Pt able to void using bedpan, PVR remains <400. Pt denies complaints at this time. Bed alarm in place for
pt safety. Call banda within reach.
[2024-02-09] VITALS (18 sets, daily range): BP systolic 92–132; BP diastolic 62–85; PULSE 126–127; BMI 24.2
[2024-02-09] MEDS: LOPRESSOR 5 MG IV ×3 (05:28→17:36)
[2024-02-09 05:35] LABS: Blood Urea Nitrogen 27 mg/dl (7-17); Calcium 8.1 mg/dl (8.4-10.2); Carbon Dioxide 20 mmol/L (22-30); Chloride 98 mmol/L (98-107); Estimated Creatinine Clearance 74 ml/min; Glucose 130 mg/dl (70-99); Iron 98 ug/dl (37-170); Magnesium 2.2 mg/dl (1.6-2.3); Potassium 4.8 mmol/L (3.5-5.1); Sodium 129 mmol/L (135-145); eGFR > 60.00
[2024-02-09 05:45] LABS: Percent Saturation 46 % (20-50); Total Iron Binding Capacity 211 ug/dl (265-497)
[2024-02-09 05:49] LABS: % Immature Granulocytes 0.4 % (0-0.5); % Lymphocytes 3.2 % (20.5-51.1); % Monocytes 8.8 % (1.7-9.3); % Neutrophils 86.6 % (42.2-75.2); Absolute Eosinophils 0.1 10^3/uL (0-0.7); Absolute Lymphocytes 0.3 10^3/uL (1.2-3.4); Absolute Monocytes 0.8 10^3/uL (0.1-0.6); Hematocrit 30.1 % (37.0-47.0); Hemoglobin 10.1 g/dL (12.0-16.0); Mean Corp Hgb Conc. 33.6 g/dL (33.0-37.0); Mean Corpuscular Hgb 29.3 pg (27.0-31.0); Mean Corpuscular Volume 87.2 fL (81.0-99.0); Mean Platelet Volume 9.9 fL (7.4-10.4); Nucleated Red Blood Cells % 0 %; Platelet Count 357 10^3/uL (130-400); Red Blood Cell Count 3.45 10^6/uL (4.20-5.40); Red Cell Dist. Width 14.6 % (11.5-14.5); White Blood Cell Count 9.2 10^3/uL (4.8-10.8)
[2024-02-09 06:42] LABS: Folate 9.8 ng/ml (2.76-20); Vitamin B12 > 1000 pg/ml (239-931)
--- NOTE | 2024-02-09 09:00 | PTCARENOTE ---
Patient received from hotel night auditor. Patient resting comfortably in bed. AAO, VSS. No events noted overnight. No complaints of pain at this time. Currently on Room Air. Continuing ABX. No test scheduled for today at this time. Call banda in
reach.
[2024-02-09] MEDS: DECADRON 4 MG IV ×2 (09:01→20:06)
[2024-02-09] MEDS: AZULFIDINE 1000 MG PO ×2 (09:02→19:54)
[2024-02-09] MEDS: CELLCEPT 1500 MG PO ×2 (09:02→19:54)
[2024-02-09] MEDS: VIBRAMYCIN 100 MG PO ×2 (09:02→19:54)
[2024-02-09] MEDS: PACERONE 400 MG PO ×3 (09:02→21:14)
[2024-02-09] MEDS: PLAQUENIL 400 MG PO (09:02)
--- NOTE | 2024-02-09 09:56 | W.PN.HOSP.TC ---
Today's Communication/Plan
-
IV Lopressor. Amiodarone. IV steroids. IV antibiotics
Assessment / Plan
Assessment / Plan
Physical exam:
General: Acutely ill
HEENT: Normocephalic, Atraumatic and Moist Mucous Membranes
Respiratory: Bilateral coarse crackles; Negative Wheezes or Rhonchi
Cardiac: Irregular rate and rhythm, tachycardic, and S1/S2
GI: Soft, Nontender and Nondistended
Musculoskeletal: No Clubbing, No Cyanosis. B/L LE Edema
Neuro: Awake, Alert and Oriented, no gross neurological deficit
Psych: Calm
A/P:
Dyspnea/hypoxic respiratory insufficiency:
Unclear etiology but suspect multifactorial related to pneumonia,underlying pulmonary fibrosis, tachyarrhythmia, and ?heart failure
Seen and reviewed chest x-ray
Continue IV dexamethasone 4 mg every 6 hours for now--> decreased to every 8 hours
Follow-up blood cultures but negative so far
Continue empiric antibiotics IV Rocephin and doxycycline
Pulmonary consulted-appreciated input
Discussed with family prior
PT OT eval if possible
Atrial flutter with rapid ventricular response:
Initially on Cardizem drip--> cardiology switched to amiodarone, continue loading dose
Stopped heparin drip due to pericardial effusion
Cardiology increased IV Lopressor
Status post echocardiogram and review results--> plan to repeat echo on 02/10
Cardiology consult appreciated
Continue cardiac monitoring
Severe hyponatremia:
Sodium remains at 129 today
Nephrology consult appreciated
Status post 3% saline by nephrology--> now fluid restriction and solute intake
Monitor renal function
Hypertension:
Hold amlodipine furosemide and losartan and will reevaluate when to restart down the road
Monitor blood pressure adjust medications accordingly
Hypotension:
Hold amlodipine and losartan and will reevaluate when to restart down the road
Furosemide restarted
Nausea and vomiting:
Suspect viral gastroenteritis
Monitor for recurrent symptoms
Encourage oral hydration for now but will reevaluate
Anemia:
No signs of active bleeding
Hemoglobin stable at 10 today
Continue to monitor hemoglobin closely
Rheumatoid arthritis/pulmonary fibrosis/autoimmune hepatitis with liver cirrhosis:
Continue mycophenolate 1500 mg twice a day and hydroxychloroquine 400 mg p.o. daily and sulfasalazine 1000 mg twice a day
Chronic left shoulder fracture and falls:
Avoid NSAIDs due to hyponatremia
Tylenol prn
DVT prophylaxis:
On heparin drip
CODE STATUS:
Full code
Time spent 54-minutes
Anticipated Discharge: > 48 hours
Subjective/Interval History
-
Date of Service: February 09, 2024
Patient feels better overall. Afebrile. No chest pain. Still tachycardic.
Objective Data
-
Labs:
Laboratory Results
02/09/24
04:40
WBC 9.2
Hgb 10.1 L
Hct 30.1 L
Plt Count 357
Sodium 129 L
Potassium 4.8
Chloride 98
Carbon Dioxide 20 L
BUN 27 H
Creatinine 0.5 L
Glucose 130 H
Calcium 8.1 L
Vital Signs:
Vital Signs
Temp Pulse Resp BP Pulse Ox
97.3 F 127 29 116/80 97
02/09/24 07:25 02/09/24 09:02 02/09/24 06:00 02/09/24 09:02 02/08/24 08:40
I&O
02/08/24 02/09/24 02/10/24
06:59 06:59 06:59
Intake Total 200 / 200 100 / 100
Output Total 428 / 428 775 / 775
Balance -228 / -228 -675 / -675
--- NOTE | 2024-02-09 11:00 | W.PN.CARDCBS ---
Today's Communication / Plan
-
Remains with rapid atrial flutter
Continue amiodarone loading and increase Lopressor to 10 mg IV every 6 hours
Heparin stopped because of moderate pericardial effusion and will recheck echocardiogram on 02/10
Not an ideal long-term anticoagulant condition candidate and cardioversion not an option
Impression / Plan
-
.
Impression:
Atrial flutter with rapid ventricular response
Failure to thrive
Hyponatremia
Moderate aortic stenosis
Moderate pericardial effusion
History Pulmonary fibrosis
History rheumatoid arthritis
History Hepatitis C/cirrhosis
Hypertension
Osteoporosis
Mild cognitive defects
Echocardiogram 02/08/2024: Ejection fraction 43%, moderate AAS with mean gradient of 12 mmHg aortic valve area 1.1 cm, moderate pericardial effusion
Plan:
Heart rate control remains suboptimal despite amiodarone loading at 400 mg p.o. 3 times daily started on 02/14. Also on Lopressor 5 mg IV every 6 hours. Will increase Lopressor to 10 mg IV every 6 hours if blood pressure tolerate
Also heparin was stopped because of moderate pericardial effusion on 02/07 and unclear whether patient could be a candidate for Eliquis long-term so cardioversion not ideal
Will recheck echocardiogram on 02/10 to reassess pericardial effusion
Continue IV steroids per pulmonary as patient has known pulmonary fibrosis.
Nephrology managing hyponatremia
Progress Note - Engagement Executive
Subjective
Date of Service: February 09, 2024
No complaints but appears confused
Objective
Labs:
02/09/24 04:40
02/09/24 04:40
Labs
Hgb 10.1 g/dL (12.0-16.0) L 02/09/24 04:40
Hct 30.1 % (37.0-47.0) L 02/09/24 04:40
Plt Count 357 10^3/uL (130-400) 02/09/24 04:40
APTT Cancelled 02/08/24 10:00
Sodium 129 mmol/L (135-145) L 02/09/24 04:40
Potassium 4.8 mmol/L (3.5-5.1) 02/09/24 04:40
BUN 27 mg/dl (7-17) H 02/09/24 04:40
Creatinine 0.5 mg/dL (0.6-1.0) L 02/09/24 04:40
Glucose 130 mg/dl (70-99) H 02/09/24 04:40
Vital Signs and I&O:
Vital Signs
Temp Pulse Resp BP Pulse Ox
97.3 F 127 29 116/80 97
02/09/24 07:25 02/09/24 09:02 02/09/24 06:00 02/09/24 09:02 02/08/24 08:40
Vital Signs
Temp Pulse Resp BP Pulse Ox
97.3 F 127 29 116/80 97
02/09/24 07:25 02/09/24 09:02 02/09/24 06:00 02/09/24 09:02 02/08/24 08:40
Intake & Output
02/07/24 02/08/24 02/09/24 02/10/24
06:59 06:59 06:59 06:59
Intake Total 200 / 200 100 / 100
Output Total 450 / 450 428 / 428 775 / 775
Balance -450 / -450 -228 / -228 -675 / -675
Physical Exam
Physical Exam
General: Awake but confused
Neck: Supple, no JVD, HJR, carotids +2 B/L, no bruits bilaterally.
Heart: Non displaced PMI, regular, tachycardic, no murmurs, No S3, S4, no rubs.
Lungs: Scattered rhonchi
Extremities: No clubbing, cyanosis or edema bilaterally.
Neuro: Awake but confused
--- NOTE | 2024-02-09 11:41 | W.PN.NEPH.PH ---
Today's Communication / Plan
-
FR and increase solute intake
Assessment/Plan
-
Assessment
hyponatremia.
Chronic pulmonary fibrosis.
Nausea vomiting.
Chronic pain status post left shoulder fracture previous two most recent fall with chronic NSAID use
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
Afib
Mod
mod pericardial effusion
Plan:
Hyponatremia- ADH mediated U osmo 482, U na low 15 suggest prerenal/cardiorenal with afib
sodium improved to 129 s/p 3% NaCl
Afib per cards, on Amio and BB
off heparin since pericardial effusion noted on echo-repeat on 02/10
encourage solute intake
follow bladder scan
d/w pt
-
-
Date of Service: February 09, 2024
CC / HPI / ROS
-
Chief Complaint:
hyponatremia
History of Present Illness:
Na up at 129 post HTS
BP low stable
acidosis persists 20
hb stable at 10.1
UOP barely non oliguric , cr 0.5, PVR 350cc on 02/07
Review of Systems:
no active sob
+tachycardia
no dizziness
no CP
Labs
-
Labs:
WBC 9.2 10^3/uL (4.8-10.8) 02/09/24 04:40
RBC 3.45 10^6/uL (4.20-5.40) L 02/09/24 04:40
Hgb 10.1 g/dL (12.0-16.0) L 02/09/24 04:40
Hct 30.1 % (37.0-47.0) L 02/09/24 04:40
Plt Count 357 10^3/uL (130-400) 02/09/24 04:40
Sodium 129 mmol/L (135-145) L 02/09/24 04:40
Potassium 4.8 mmol/L (3.5-5.1) 02/09/24 04:40
Chloride 98 mmol/L (98-107) 02/09/24 04:40
Carbon Dioxide 20 mmol/L (22-30) L 02/09/24 04:40
BUN 27 mg/dl (7-17) H 02/09/24 04:40
Creatinine 0.5 mg/dL (0.6-1.0) L 02/09/24 04:40
eGFR > 60.00 02/09/24 04:40
Glucose 130 mg/dl (70-99) H 02/09/24 04:40
Calcium 8.1 mg/dl (8.4-10.2) L 02/09/24 04:40
Nfe-I-Opwsqmeaqiu Pept 1650 pg/ml 02/06/24 09:04
Albumin 3.8 g/dl (3.5-5.0) 02/06/24 09:04
Physical Exam
-
Vital Signs:
Vital Signs
Temp Pulse Resp BP Pulse Ox
97.3 F 127 29 116/80 97
02/09/24 07:25 02/09/24 09:02 02/09/24 06:00 02/09/24 09:02 02/08/24 08:40
Cardiovascular:: Irregular rate and rhythm
Respiratory:: Bilateral: CTA (decreased)
Lung Excursion:: Normal
Abdomen:: Nontender and Soft
Extremity Edema:: None: Bilateral:
Llanes Catheter: No
[2024-02-09] MEDS: ROCEPHIN 1000 MG IV (13:58)
[2024-02-09] MEDS: STERILE WATER FOR INJECTION 10 ML IV (13:58)
--- NOTE | 2024-02-09 15:07 | W.PN.PUL3 ---
Today's Communication / Plan
-
Decrease IV corticosteroids to every 8 hours-will consider transition to prednisone in the next 24 to 48 hours
Continue antibiotics-hopefully short course-5 days per
Repeat echocardiogram on Sunday to follow-up on pericardial effusion
Heart rate control per cardio
Incentive spirometer
If there is oxygen requirements may need to consider CAT scan at this point hold off
Assessment
-
Assessment: 79-year-old female with a past medical history of RA, pulmonary fibrosis, autoimmune hepatitis c/b cirrhosis, hypertension, and history of hepatitis C who presents with SOB. Patient apparently fell about 2 weeks ago and has been
declining since. She does follow with rheumatology for history of RA/ILD. She has been feeling 'winded' over the last several days which worsened on the day of the ER arrival. She also has lower extremity edema. Also endorses dry cough, no chest
pain, fevers or chills, or abdominal pain/diarrhea. Initially in the ER she was afebrile to 97.9 �F, tachycardic to 143 (A-fib with RVR/a-flutter), tachypneic to 24 breaths/min, BP 125 or 78 and saturating 97% on room air. Labs showed Hb 10.6,
serum sodium 120, serum chloride 88, serum bicarbonate level 21, proBNP 1650, urine sodium low at 15, and COVID-19 antigen negative. Flu A/B also negative and blood cultures collected. CXR showed bilateral interstitial pulmonary opacities with
bibasilar patchy opacities. Initial EKG showed A-flutter 2:1 conduction and she required Cardizem drip in the ER and also given 500 cc bolus of NS 0.9%. She was admitted to the IMU and now pulmonary services consulted for additional
management/recommendations.
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
Impression:
#Acute respite failure due to ILD exacerbation vs pneumonia; component of alveolar/interstitial edema in setting of A-fib with RVR also possible
#A-fib with RVR/A-flutter requiring Cardizem drip (now discontinued)
#Anemia
#Hypochloremic, hyponatremia likely due to reduced PO intake with recent vomiting over the last 2�3 nights
#Reported history of RA with pulmonary fibrosis
#History of autoimmune hepatitis complicated by cirrhosis
#History of hypertension
Plan:
- Patient has reported history of RA with pulmonary fibrosis, hence this is consistent with systemic autoimmune rheumatic disease (SARD)�ILD
-Thee is no prior imaging of the chest to confirm chronicity of current radiographic abnormalities; also have no prior PFTs to confirm presence of restrictive lung disease.
-Currently not on supplemental oxygen-appears comfortable at rest. Feels weak in the lower extremities. Doubt ILD flare.
- CXR from 02/06/2024 shows bilateral reticular opacities/patchy opacification with interstitial/perihilar prominence, concerning for ILD exacerbation versus pneumonia/pneumonitis
- Continue with systemic steroids and wean as she clinically improves � decrease Decadron 4 mg IV q8hr --> if continues to improve, to prednisonde in next 24-48hrs.
- While on high-dose steroids, maintain euglycemia with goal BG >100 and <180
- Continue with empiric antibiotics, currently on ceftriaxone/doxycycline
- Blood cultures collected on 02/06/2024 � NGTD
-All cultures negative, afebrile without leukocytosis. Will keep a short course of 5 days if she continues to improve.
- Continue with immunosuppressive home medications: mycophenolate + sulfasalazine
- Continue with home Lasix dosing
- Obtain prior medical records from her avionics systems repairer at [facility] (Dr. Shine)
Currently without oxygen requirement, hold off on CT chest. Unlikely to change over
-Still tachycardic, goal HR<110 s/p cardizem gtt
- Continue IV lopressor q6hr while holding parameters
- Heparin gtt now DC'd; p.o. amiodarone per cardiology
- PO lasix, trend I/O and UOP
- Cardiology consulted and recs appreciated-echocardiogram to be repeated 02/10/2023 to follow-up on pericardial effusion.
- Echo obtained today shows reduced LVEF at 43% with moderate MR, moderate aortic stenosis and moderate pericardial effusion
- Continue to trend serum sodium while on 3% NS
- Urine sodium is low at 15 (02/06/2024), essentially ruling out SIADH
- Nephrology following
- Avoid overcorrection of serum sodium
- Maintain SpO2 >90-94% with supplemental O2 as needed
- Incentive spirometer encouraged q1hr while awake
- prn nebulized bronchodilators � patient not currently bronchospastic
- DVT ppx
Pulmonary service will continue to follow along. Patient will follow-up with her primary avionics systems repairer, Dr. Shine, at [facility].
Data:
CXR 02/06/2024:
Bilateral interstitial pulmonary opacities most compatible with chronic fibrosis. Mild patchy opacities in the lung bases raising the possibility for superimposed aspiration/pneumonia in the appropriate clinical setting.
No large pleural effusion or pneumothorax. The cardiac silhouette is mildly enlarged. Chronic degenerative changes of the spine. Chronic displaced left humeral neck fracture.
Transthoracic echocardiogram 02/08/2024:
Normal left ventricular chamber size. Normal left ventricular wall thickness.
Mildly reduced left ventricular systolic function. Left ventricular ejection
fraction is 43% by Roberts's method. Ejection fraction might be difficult to
ascertain due to to rapid atrial flutter. Diastolic function indeterminate due
to atrial fibrillation.
Thickened mitral valve leaflets. Mitral valve opens normally. Moderate mitral
regurgitation.
Trileaflet aortic valve. Calcified aortic valve. Thickened aortic valve with
restricted leaflet motion. Moderate aortic stenosis with peak/mean gradients
across the aortic valve are 21/12 mmHg. Using an LVOT diameter of 2.0 cm, the
DAPHNE = 1.1 cm2. Mild aortic regurgitation.
Moderate pericardial effusion without evidence of hemodynamic compromise. In
the anterior space it measures 1.8 cm. and posterior to the left heart it
measures 2.4 cm.
Subjective Data
-
Date of Service:
Date of Service: February 09, 2024
Chief Complaint: Pulmonary Follow Up
Subjective:
No new complaints overnight
Denies phlegm production or hemoptysis
Review of Systems
General: Fever (n)
Cardiopulmonary: Dyspnea, Dyspnea on Exertion, Cough and Sputum Production (n)
GI: Abdominal Pain (n)
Objective Data
Data Reviewed
Vital Signs / I&O / Oxygen:
Vital Signs
Temp Pulse Resp BP Pulse Ox
97.8 F 133 29 93/61 97
02/09/24 11:24 02/09/24 14:13 02/09/24 06:00 02/09/24 14:13 02/08/24 08:40
Intake and Output
02/08/24 02/09/24 02/10/24
06:59 06:59 06:59
Intake Total 200 / 200 100 / 100
Output Total 428 / 428 775 / 775
Balance -228 / -228 -675 / -675
SaO2 97
Nasal Cannula flow liters per 96
minute
Physical Exam
General: Respiratory Distress (negative), Comfortable, Chills (negative) and Sweats (negative)
HEENT: Normocephalic and Anicteric
Cardiovascular: Peripheral Edema (+1 lower extremity pitting edema bilaterally) and Other (Regular and tachycardic)
Respiratory: Wheeze (negative), Crackles (Bilateral), Rhonchi (negative), Accessory Resp Muscle Use (negative) and Stridor (negative)
GI: Soft, Non Distended, Non Tender and Normal Bowel Sounds
Neurology: Awake, Alert and Tremors (negative)
Skin: Warm, Dry, Cyanosis (negative) and Jaundice (negative)
Labs/Micro/Reports
Lab Data
02/09/24 04:40
02/09/24 04:40
Microbiology
02/06/24 14:13 Blood/Venous Blood Culture - Preliminary
No Growth in 72 hours- Final report to follow
02/06/24 14:13 Blood/Venous Blood Culture - Preliminary
No Growth in 72 hours- Final report to follow
02/06/24 11:26 Nasal Swab Influenza Types A & B ([facility]) - Final
Negative for Influenza A & B, NAAT
Negative results must be combined with clinical observations
and patient history.
Nucleic Acid Amplification test (NAAT)performed on the
[employer] platform.
[2024-02-09] MEDS: FLUSH (NSS) 4 FLUSH IV (20:06)
[2024-02-10] VITALS (14 sets, daily range): BP systolic 90–133; BP diastolic 66–96; BMI 23.0
[2024-02-10] MEDS: LOPRESSOR 5 MG IV ×5 (01:09→23:10)
--- NOTE | 2024-02-10 02:03 | PTCARENOTE ---
No change in pt status since beginning of shift.Pt remains stable with no s/s of distress assessed. Will continue to monitor.
[2024-02-10 04:56] LABS: % Immature Granulocytes 0.3 % (0-0.5); % Lymphocytes 3.6 % (20.5-51.1); % Monocytes 9.4 % (1.7-9.3); % Neutrophils 86.7 % (42.2-75.2); Absolute Lymphocytes 0.4 10^3/uL (1.2-3.4); Absolute Monocytes 0.9 10^3/uL (0.1-0.6); Absolute Neutrophils 8.6 10^3/uL (1.4-6.5); Hematocrit 29.4 % (37.0-47.0); Hemoglobin 9.9 g/dL (12.0-16.0); Mean Corp Hgb Conc. 33.7 g/dL (33.0-37.0); Mean Corpuscular Hgb 29.6 pg (27.0-31.0); Mean Corpuscular Volume 87.8 fL (81.0-99.0); Mean Platelet Volume 9.7 fL (7.4-10.4); Nucleated Red Blood Cells % 0 %; Platelet Count 225 10^3/uL (130-400); Red Blood Cell Count 3.35 10^6/uL (4.20-5.40); Red Cell Dist. Width 14.7 % (11.5-14.5)
[2024-02-10 05:02] LABS: Blood Urea Nitrogen 28 mg/dl (7-17); Calcium 7.7 mg/dl (8.4-10.2); Carbon Dioxide 22 mmol/L (22-30); Chloride 100 mmol/L (98-107); Estimated Creatinine Clearance 74 ml/min; Glucose 127 mg/dl (70-99); Potassium 4.4 mmol/L (3.5-5.1); Sodium 130 mmol/L (135-145); eGFR > 60.00
--- NOTE | 2024-02-10 08:34 | W.PN.HOSP.TC ---
Today's Communication/Plan
-
Amiodarone. Digoxin. IV metoprolol. Antibiotics. Steroids.
Assessment / Plan
Assessment / Plan
Physical exam:
General: Acutely ill
HEENT: Normocephalic, Atraumatic and Moist Mucous Membranes
Respiratory: Bilateral coarse crackles; Negative Wheezes or Rhonchi
Cardiac: Irregular rate and rhythm, tachycardic, and S1/S2
GI: Soft, Nontender and Nondistended
Musculoskeletal: No Clubbing, No Cyanosis. B/L LE Edema
Neuro: Awake, Alert and Oriented, no gross neurological deficit
Psych: Calm
A/P:
Dyspnea/hypoxic respiratory insufficiency:
Unclear etiology but suspect multifactorial related to pneumonia,underlying pulmonary fibrosis, tachyarrhythmia, and ?heart failure
Seen and reviewed chest x-ray
Continue IV dexamethasone and switch to oral prednisone tomorrow on per pulmonary
Follow-up blood cultures but negative so far
Continue empiric antibiotics IV Rocephin and doxycycline
Pulmonary consulted-appreciated input
Discussed with family prior
PT OT and recommend skilled rehab
Atrial flutter with rapid ventricular response:
Not well-controlled yet
Initially on Cardizem drip--> cardiology switched to amiodarone, continue loading dose. On scheduled IV doses of metoprolol. Cardiology added digoxin today.
Stopped heparin drip due to pericardial effusion
Status post echocardiogram and review results--> plan to repeat echo on 02/10
Cardiology consult appreciated
Continue cardiac monitoring
Pericardial effusion:
Plan to repeat echocardiogram during this hospital stay
Severe hyponatremia:
Sodium remains at 130 today
Nephrology consult appreciated
Status post 3% saline by nephrology--> now fluid restriction and solute intake
Monitor renal function
Hypertension:
Hold amlodipine and losartan and will reevaluate when to restart down the road
Monitor blood pressure adjust medications accordingly
Hypotension:
Hold amlodipine and losartan and will reevaluate when to restart down the road
Furosemide restarted
Nausea and vomiting:
Suspect viral gastroenteritis
Monitor for recurrent symptoms
Encourage oral hydration for now but will reevaluate
Anemia:
No signs of active bleeding
Hemoglobin stable at 9.9 today
Continue to monitor hemoglobin closely
Rheumatoid arthritis/pulmonary fibrosis/autoimmune hepatitis with liver cirrhosis:
Continue mycophenolate 1500 mg twice a day and hydroxychloroquine 400 mg p.o. daily and sulfasalazine 1000 mg twice a day
Chronic left shoulder fracture and falls:
Avoid NSAIDs due to hyponatremia
Tylenol prn
DVT prophylaxis:
On heparin drip
CODE STATUS:
Full code
Time spent 55 minutes
Anticipated Discharge: > 48 hours
Subjective/Interval History
-
Date of Service: February 10, 2024
Patient endorses palpitations on and off. Less shortness of breath. No chest pain. Afebrile
Objective Data
-
Labs:
Laboratory Results
02/10/24 02/10/24
04:10 04:11
WBC 10.0
Hgb 9.9 L
Hct 29.4 L
Plt Count 225 D
Sodium 130 L
Potassium 4.4
Chloride 100
Carbon Dioxide 22
BUN 28 H
Creatinine 0.4 L
Glucose 127 H
Calcium 7.7 L
Vital Signs:
Vital Signs
Temp Pulse Resp BP Pulse Ox
97.8 F 130 22 90/75 97
02/10/24 07:30 02/10/24 08:00 02/10/24 08:00 02/10/24 08:00 02/09/24 21:40
I&O
02/09/24 02/10/24 02/11/24
06:59 06:59 06:59
Intake Total 100 / 100 600 / 600
Output Total 775 / 775 500 / 500
Balance -675 / -675 100 / 100
[2024-02-10] MEDS: PACERONE 400 MG PO ×3 (09:32→21:09)
[2024-02-10] MEDS: DECADRON 4 MG IV (09:35)
[2024-02-10] MEDS: LASIX 20 MG PO (09:35)
--- NOTE | 2024-02-10 10:12 | W.PN.CARDCBS ---
Today's Communication / Plan
-
Heart rate remains poorly controlled on amiodarone and Lopressor
Will add digoxin
Impression / Plan
-
.
Impression:
Atrial flutter with rapid ventricular response
Failure to thrive
Hyponatremia
Moderate aortic stenosis
Moderate pericardial effusion
History Pulmonary fibrosis
History rheumatoid arthritis
History Hepatitis C/cirrhosis
Hypertension
Osteoporosis
Mild cognitive defects
Echocardiogram 02/08/2024: Ejection fraction 43%, moderate AAS with mean gradient of 12 mmHg aortic valve area 1.1 cm, moderate pericardial effusion
Plan:
Heart rate control remains suboptimal despite amiodarone loading at 400 mg p.o. 3 times daily started on 02/07/2024
Also is on IV Lopressor
Will add digoxin
Heparin was stopped because of moderate pericardial effusion on 02/07 and unclear whether patient could be a candidate for Eliquis long-term so cardioversion not ideal
Will recheck echocardiogram on 02/10 to reassess pericardial effusion
Continue IV steroids per pulmonary as patient has known pulmonary fibrosis.
Nephrology managing hyponatremia
Progress Note - Coagulating Bath Operator
Subjective
Date of Service: February 10, 2024
No complaints but appears confused
Objective
Labs:
02/10/24 04:10
02/10/24 04:11
Labs
Hgb 9.9 g/dL (12.0-16.0) L 02/10/24 04:10
Hct 29.4 % (37.0-47.0) L 02/10/24 04:10
Plt Count 225 10^3/uL (130-400) D 02/10/24 04:10
APTT Cancelled 02/08/24 10:00
Sodium 130 mmol/L (135-145) L 02/10/24 04:11
Potassium 4.4 mmol/L (3.5-5.1) 02/10/24 04:11
BUN 28 mg/dl (7-17) H 02/10/24 04:11
Creatinine 0.4 mg/dL (0.6-1.0) L 02/10/24 04:11
Glucose 127 mg/dl (70-99) H 02/10/24 04:11
Vital Signs and I&O:
Vital Signs
Temp Pulse Resp BP Pulse Ox
97.8 F 130 22 115/96 97
02/10/24 07:30 02/10/24 09:32 02/10/24 08:00 02/10/24 09:32 02/09/24 21:40
Vital Signs
Temp Pulse Resp BP Pulse Ox
97.8 F 130 22 115/96 97
02/10/24 07:30 02/10/24 09:32 02/10/24 08:00 02/10/24 09:32 02/09/24 21:40
Intake & Output
02/08/24 02/09/24 02/10/24 02/11/24
06:59 06:59 06:59 06:59
Intake Total 200 / 200 100 / 100 600 / 600
Output Total 428 / 428 775 / 775 500 / 500
Balance -228 / -228 -675 / -675 100 / 100
Physical Exam
Physical Exam
General: Well developed, well nourished in NAD.
Neck: Supple, no JVD, HJR, carotids +2 B/L, no bruits bilaterally.
Heart: Non displaced PMI, regular, tachycardic, no murmurs, No S3, S4, no rubs.
Lungs: Scattered rhonchi
Abdomen: Normal bowel sounds, soft, non-tender, non-distended.
Extremities: No clubbing, cyanosis or edema bilaterally.
Neuro: Grossly nonfocal, awake, alert and oriented x3.
[2024-02-10] MEDS: LANOXIN 500 MCG PO (10:33)
[2024-02-10] MEDS: AZULFIDINE 1000 MG PO ×2 (10:35→20:13)
[2024-02-10] MEDS: PLAQUENIL 400 MG PO (10:35)
[2024-02-10] MEDS: VIBRAMYCIN 100 MG PO ×2 (10:36→20:13)
[2024-02-10] MEDS: CELLCEPT 1500 MG PO ×2 (10:36→20:13)
--- NOTE | 2024-02-10 10:42 | PTCARENOTE ---
pt tachycardic with heart rates sustaining 130's; atrial flutter. Q6hr scheduled IV lopressor given 629, scheduled amiodarone 400 mg given po 929. digoxin 500 mg ordered; now dose given po. pt is asymptomatic; denies lightheadedness and sob. pox
96% on room air. continuing to monitor
--- NOTE | 2024-02-10 10:50 | W.PN.NEPH.PH ---
Today's Communication / Plan
-
observe with FR, lasix
Assessment/Plan
-
Assessment
hyponatremia.
Chronic pulmonary fibrosis.
Nausea vomiting.
Chronic pain status post left shoulder fracture previous two most recent fall with chronic NSAID use
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
Afib
Mod
mod pericardial effusion
Plan:
Hyponatremia- ADH mediated U osmo 482, U na low 15 suggest prerenal/cardiorenal with afib
sodium improved to 130
Afib per cards, on Amio and BB, dig added
off heparin since pericardial effusion noted on echo-repeat on 02/10
encourage solute intake
follow bladder scan, improving PVR
steroids and abx per pulm
cont lasix
d/w pt
-
-
Date of Service: February 10, 2024
CC / HPI / ROS
-
Chief Complaint:
hyponatremia
History of Present Illness:
Na up at 130
BP stable
acidosis improving bicarb at 22
hb stable at 9.9
UOP barely non oliguric , cr 0.4, PVR 75cc
wt is down
Review of Systems:
no active sob
+tachycardia
no dizziness
no CP
Labs
-
Labs:
WBC 10.0 10^3/uL (4.8-10.8) 02/10/24 04:10
RBC 3.35 10^6/uL (4.20-5.40) L 02/10/24 04:10
Hgb 9.9 g/dL (12.0-16.0) L 02/10/24 04:10
Hct 29.4 % (37.0-47.0) L 02/10/24 04:10
Plt Count 225 10^3/uL (130-400) D 02/10/24 04:10
Sodium 130 mmol/L (135-145) L 02/10/24 04:11
Potassium 4.4 mmol/L (3.5-5.1) 02/10/24 04:11
Chloride 100 mmol/L (98-107) 02/10/24 04:11
Carbon Dioxide 22 mmol/L (22-30) 02/10/24 04:11
BUN 28 mg/dl (7-17) H 02/10/24 04:11
Creatinine 0.4 mg/dL (0.6-1.0) L 02/10/24 04:11
eGFR > 60.00 02/10/24 04:11
Glucose 127 mg/dl (70-99) H 02/10/24 04:11
Calcium 7.7 mg/dl (8.4-10.2) L 02/10/24 04:11
Dzt-A-Epoasglicvf Pept 1650 pg/ml 02/06/24 09:04
Albumin 3.8 g/dl (3.5-5.0) 02/06/24 09:04
Physical Exam
-
Vital Signs:
Vital Signs
Temp Pulse Resp BP Pulse Ox
97.4 F 127 22 128/89 97
02/10/24 11:42 02/10/24 12:31 02/10/24 08:00 02/10/24 12:31 02/09/24 21:40
Cardiovascular:: Irregular rate and rhythm
Respiratory:: Bilateral: Rales (at bases)
Lung Excursion:: Normal
Abdomen:: Nontender and Soft
Extremity Edema:: +1: Bilateral:
Llanes Catheter: No
--- NOTE | 2024-02-10 12:20 | W.PN.PUL3 ---
Today's Communication / Plan
-
Transition to prednisone 40 mg
Complete 5 days of antibiotics
Heart rate control per cardiology
Echocardiogram to be repeated to follow-up on pericardial effusion
We will follow
Assessment
-
Assessment: 79-year-old female with a past medical history of RA, pulmonary fibrosis, autoimmune hepatitis c/b cirrhosis, hypertension, and history of hepatitis C who presents with SOB. Patient apparently fell about 2 weeks ago and has been
declining since. She does follow with rheumatology for history of RA/ILD. She has been feeling 'winded' over the last several days which worsened on the day of the ER arrival. She also has lower extremity edema. Also endorses dry cough, no chest
pain, fevers or chills, or abdominal pain/diarrhea. Initially in the ER she was afebrile to 97.9 �F, tachycardic to 143 (A-fib with RVR/a-flutter), tachypneic to 24 breaths/min, BP 125 or 78 and saturating 97% on room air. Labs showed Hb 10.6,
serum sodium 120, serum chloride 88, serum bicarbonate level 21, proBNP 1650, urine sodium low at 15, and COVID-19 antigen negative. Flu A/B also negative and blood cultures collected. CXR showed bilateral interstitial pulmonary opacities with
bibasilar patchy opacities. Initial EKG showed A-flutter 2:1 conduction and she required Cardizem drip in the ER and also given 500 cc bolus of NS 0.9%. She was admitted to the IMU and now pulmonary services consulted for additional
management/recommendations.
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
Impression:
#Acute respite failure due to ILD exacerbation vs pneumonia; component of alveolar/interstitial edema in setting of A-fib with RVR also possible
#A-fib with RVR/A-flutter requiring Cardizem drip (now discontinued)
#Anemia
#Hypochloremic, hyponatremia likely due to reduced PO intake with recent vomiting over the last 2�3 nights
#Reported history of RA with pulmonary fibrosis
#History of autoimmune hepatitis complicated by cirrhosis
#History of hypertension
Plan:
- Patient has reported history of RA with pulmonary fibrosis, hence this is consistent with systemic autoimmune rheumatic disease (SARD)�ILD
-Thee is no prior imaging of the chest to confirm chronicity of current radiographic abnormalities; also have no prior PFTs to confirm presence of restrictive lung disease.
-Not on on supplemental oxygen-appears comfortable at rest. Feels weak in the lower extremities. Doubt ILD flare.
- CXR from 02/06/2024 shows bilateral reticular opacities/patchy opacification with interstitial/perihilar prominence, concerning for ILD exacerbation versus pneumonia/pneumonitis
- Continue with systemic steroids and wean as she clinically improves � decrease Decadron 4 mg IV q8hr --> transition to prednisone 40 mg 02/10/2024.
- While on high-dose steroids, maintain euglycemia with goal BG >100 and <180
- Continue with empiric antibiotics, currently on ceftriaxone/doxycycline-would complete 5 to 7 days of antibiotics. Unclear whether there is pneumonia, difficult to discern based on x-ray
- Blood cultures collected on 02/06/2024 � NGTD
-All cultures negative, afebrile without leukocytosis.
- Continue with immunosuppressive home medications: mycophenolate + sulfasalazine
- Continue with home Lasix dosing
- Obtain prior medical records from her drapery counselor at [place] (Dr. Shine)
Currently without oxygen requirement, hold off on CT chest. Unlikely to change control specialist-will continue to reassess on a daily basis.
Heart rate not controlled:
-Still tachycardic, goal HR<110 s/p cardizem gtt
-Continue heart rate controlling medications per cardiology.
- Heparin gtt now DC'd; p.o. amiodarone per cardiology
- Cardiology consulted and recs appreciated-echocardiogram to be repeated 02/10/2023 to follow-up on pericardial effusion.
- Echo obtained today shows reduced LVEF at 43% with moderate MR, moderate aortic stenosis and moderate pericardial effusion
- Continue to trend serum sodium while on 3% NS
- Urine sodium is low at 15 (02/06/2024), essentially ruling out SIADH
- Nephrology following
- Avoid overcorrection of serum sodium
- Maintain SpO2 >90-94% with supplemental O2 as needed
- Incentive spirometer encouraged q1hr while awake
- prn nebulized bronchodilators � patient not currently bronchospastic
- DVT ppx
Pulmonary service will continue to follow along. Patient will follow-up with her primary drapery counselor, Dr. Shine, at [place].
Data:
CXR 02/06/2024:
Bilateral interstitial pulmonary opacities most compatible with chronic fibrosis. Mild patchy opacities in the lung bases raising the possibility for superimposed aspiration/pneumonia in the appropriate clinical setting.
No large pleural effusion or pneumothorax. The cardiac silhouette is mildly enlarged. Chronic degenerative changes of the spine. Chronic displaced left humeral neck fracture.
Transthoracic echocardiogram 02/08/2024:
Normal left ventricular chamber size. Normal left ventricular wall thickness.
Mildly reduced left ventricular systolic function. Left ventricular ejection
fraction is 43% by Roberts's method. Ejection fraction might be difficult to
ascertain due to to rapid atrial flutter. Diastolic function indeterminate due
to atrial fibrillation.
Thickened mitral valve leaflets. Mitral valve opens normally. Moderate mitral
regurgitation.
Trileaflet aortic valve. Calcified aortic valve. Thickened aortic valve with
restricted leaflet motion. Moderate aortic stenosis with peak/mean gradients
across the aortic valve are 21/12 mmHg. Using an LVOT diameter of 2.0 cm, the
DAPHNE = 1.1 cm2. Mild aortic regurgitation.
Moderate pericardial effusion without evidence of hemodynamic compromise. In
the anterior space it measures 1.8 cm. and posterior to the left heart it
measures 2.4 cm.
Subjective Data
-
Date of Service:
Date of Service: February 10, 2024
Chief Complaint: Pulmonary Follow Up
Subjective:
Heart rate continues to be uncontrolled
Denies any chest pain
Denies shortness of breath at rest
Remains on room air
Objective Data
Data Reviewed
Vital Signs / I&O / Oxygen:
Vital Signs
Temp Pulse Resp BP Pulse Ox
97.4 F 132 22 115/96 97
02/10/24 11:42 02/10/24 10:33 02/10/24 08:00 02/10/24 09:32 02/09/24 21:40
Intake and Output
02/09/24 02/10/24 02/11/24
06:59 06:59 06:59
Intake Total 100 / 100 600 / 600
Output Total 775 / 775 500 / 500
Balance -675 / -675 100 / 100
SaO2 97
Nasal Cannula flow liters per 96
minute
Physical Exam
General: Respiratory Distress (negative), Comfortable, Chills (negative) and Sweats (negative)
HEENT: Normocephalic and Anicteric
Cardiovascular: Peripheral Edema (+1 lower extremity pitting edema bilaterally) and Other (Regular and tachycardic)
Respiratory: Wheeze (negative), Crackles (Bilateral), Rhonchi (negative), Accessory Resp Muscle Use (negative) and Stridor (negative)
GI: Soft, Non Distended, Non Tender and Normal Bowel Sounds
Neurology: Awake, Alert and Tremors (negative)
Skin: Warm, Dry, Cyanosis (negative) and Jaundice (negative)
Labs/Micro/Reports
Lab Data
02/10/24 04:10
02/10/24 04:11
Microbiology
02/06/24 14:13 Blood/Venous Blood Culture - Preliminary
No Growth in 72 hours- Final report to follow
02/06/24 14:13 Blood/Venous Blood Culture - Preliminary
No Growth in 72 hours- Final report to follow
[2024-02-10] MEDS: ROCEPHIN 1000 MG IV (12:50)
[2024-02-10] MEDS: STERILE WATER FOR INJECTION 10 ML IV (12:51)
--- NOTE | 2024-02-10 16:27 | CM ---
Patient from [facility] with Hx left shoulder fracture and falls. Room air. Heart rate 120s- 130s. Receiving IV Abx, PO Amiodarone, Lopressor. Patient undergoing med adjustments for cardiac status- started on Digoxin. Echo
planned for tomorrow. PT/OT recommend skilled rehab.
Spoke with patient's daughter KINZA Higgins;
Discussed patient's current functional mobility as per PT/OT- daughter undecided if she would want short term SNF for her mother or have her return to [facility] - she will discuss with her sister and decide. If
she decides on SNF she may want [facility] where patient's is currently residing in LTC.
CM continuing to follow.
Plan follow up with daughter re; SNF vs return to Assisted Living with [facility].
[2024-02-10] MEDS: LANOXIN 250 MCG PO ×2 (17:21→20:12)
--- NOTE | 2024-02-10 20:47 | PTCARENOTE ---
Assumed care of pt from dayshift RN. Pt oriented to self. Pleasant, denies pain or complaints. HR 120s, atrial tachy on monitor. bp 125/84. 96% on RA respirations regular, nonlabored. Bed alarm on.
[2024-02-11] VITALS (13 sets, daily range): BP systolic 100–144; BP diastolic 79–94; PULSE 124–140; BMI 23.0
[2024-02-11 04:36] LABS: Blood Urea Nitrogen 29 mg/dl (7-17); Calcium 8.1 mg/dl (8.4-10.2); Carbon Dioxide 22 mmol/L (22-30); Chloride 99 mmol/L (98-107); Estimated Creatinine Clearance 74 ml/min; Glucose 93 mg/dl (70-99); Magnesium 1.9 mg/dl (1.6-2.3); Potassium 4.3 mmol/L (3.5-5.1); Sodium 129 mmol/L (135-145); eGFR > 60.00
[2024-02-11 04:42] LABS: % Eosinophils 1.2 % (0-6); % Immature Granulocytes 0.5 % (0-0.5); % Lymphocytes 10.5 % (20.5-51.1); % Monocytes 13.5 % (1.7-9.3); % Neutrophils 74.3 % (42.2-75.2); Absolute Eosinophils 0.1 10^3/uL (0-0.7); Absolute Lymphocytes 0.9 10^3/uL (1.2-3.4); Absolute Monocytes 1.2 10^3/uL (0.1-0.6); Absolute Neutrophils 6.6 10^3/uL (1.4-6.5); Hematocrit 30.8 % (37.0-47.0); Hemoglobin 10.2 g/dL (12.0-16.0); Mean Corp Hgb Conc. 33.1 g/dL (33.0-37.0); Mean Corpuscular Hgb 29.3 pg (27.0-31.0); Mean Corpuscular Volume 88.5 fL (81.0-99.0); Mean Platelet Volume 9.5 fL (7.4-10.4); Nucleated Red Blood Cells % 0 %; Platelet Count 164 10^3/uL (130-400); Red Blood Cell Count 3.48 10^6/uL (4.20-5.40); Red Cell Dist. Width 14.9 % (11.5-14.5); White Blood Cell Count 8.8 10^3/uL (4.8-10.8)
[2024-02-11] MEDS: LOPRESSOR 5 MG IV (05:19)
[2024-02-11] MEDS: PACERONE 400 MG PO ×3 (08:33→21:30)
[2024-02-11] MEDS: PLAQUENIL 400 MG PO (08:33)
[2024-02-11] MEDS: DELTASONE 40 MG PO (08:33)
[2024-02-11] MEDS: LASIX 20 MG PO (08:33)
[2024-02-11] MEDS: CELLCEPT 1500 MG PO ×2 (08:33→20:11)
[2024-02-11] MEDS: VIBRAMYCIN 100 MG PO ×2 (08:34→20:11)
[2024-02-11] MEDS: AZULFIDINE 1000 MG PO ×2 (08:34→20:11)
--- NOTE | 2024-02-11 08:45 | W.PN.HOSP.TC ---
Today's Communication/Plan
-
Continue rate/rhythm control per cardiology
On oral steroids, continue
Finishing antibiotics today
Continue PT OT
Transfer to telemetry
Eventual discharge to [facility]
Assessment / Plan
Assessment / Plan
1. Acute hypoxic respiratory insufficiency
-Suspected multifactorial from underlying pulmonary fibrosis/A-fib related pulmonary edema/pneumonia
-Being treated for underlying causes as below
-Currently off of oxygen, continue monitor
2. Atrial flutter with rapid ventricular rate
-Patient was on Cardizem drip now has been switched to amiodarone loading dose.
-Heart rate not controlled and patient was started on digoxin yesterday
-Heparin drip was contraindicated due to pericardial effusion on echocardiogram
-Repeat echocardiogram to be done today on 02/10
-Cardiology following and help appreciated
3. Pulmonary fibrosis
Community-acquired pneumonia
-Chest x-ray reviewed and patient have changes of pulmonary fibrosis
-Pulmonology evaluated and CT chest deferred at this point as may not change agent
-Patient was on IV Decadron, has been switched to prednisone 40 mg daily
-Patient finishing 5-day course of Rocephin/doxycycline
-Xopenex as needed ordered for shortness of breath
4. Pericardial effusion:
-Plan to repeat echocardiogram during this hospital stay
5. Severe hyponatremia:
-Sodium remains at 130 today
-Nephrology consult appreciated
-Status post 3% saline by nephrology--> now fluid restriction and solute intake
6. Essential Hypertension
Episode of hypotension
-Off of losartan/amlodipine. Will need to maximize rate control medication for A-fib before starting pure anti-HTN meds.
7. Nausea and vomiting -resolved
-Suspect viral gastroenteritis
-Monitor for recurrent symptoms
8. Chronic anemia
-Hemoglobin stable at 9.9 today
-Continue to monitor hemoglobin closely
9/ Rheumatoid arthritis/pulmonary fibrosis/autoimmune hepatitis with liver cirrhosis:
Continue mycophenolate 1500 mg twice a day and hydroxychloroquine 400 mg p.o. daily and sulfasalazine 1000 mg twice a day
10. Chronic left shoulder fracture and falls:
Avoid NSAIDs due to hyponatremia
Tylenol prn
DVT prophylaxis: scd
CODE STATUS: Full code
Transfer to telemetry
Anticipated Discharge: 24 - 48 hours
Subjective/Interval History
-
Date of Service: February 11, 2024
Patient sitting comfortably in chair
Complaining of some dyspnea, not hypoxic
On telemetry heart rate running between 100-140
no reported other issues in night
Objective Data
-
Labs:
Laboratory Results
02/11/24
04:05
WBC 8.8
Hgb 10.2 L
Hct 30.8 L
Plt Count 164 D
Sodium 129 L
Potassium 4.3
Chloride 99
Carbon Dioxide 22
BUN 29 H
Creatinine 0.4 L
Glucose 93
Calcium 8.1 L
Vital Signs:
Vital Signs
Temp Pulse Resp BP Pulse Ox
97.6 F 118 17 120/89 95
02/11/24 06:59 02/11/24 05:19 02/11/24 02:00 02/11/24 05:19 02/11/24 02:00
I&O
02/10/24 02/11/24 02/12/24
06:59 06:59 06:59
Intake Total 600 / 600 720 / 720
Output Total 500 / 500 700 / 700
Balance 100 / 100 20 / 20
Review of Systems
-
Respiratory: Reports Trouble Breathing; Denies Wheezing
Cardiac: Reports No Symptoms
Abdomen/GI: Reports No Symptoms
Physical Exam
-
General: Comfortable and Cachectic
HEENT: Negative Oxygen
Respiratory: Clear to Auscultation
Cardiac: S1/S2, Irregular Rhythm and Tachycardic; Negative Murmur or Rub
GI: Soft and Nontender
Musculoskeletal: No Edema
Neuro: Awake, Alert, Oriented, No Motor Deficits and Nonfocal/Grossly Intact
Psych: Calm
--- NOTE | 2024-02-11 09:26 | W.PN.CARDCBS ---
Today's Communication / Plan
-
Heart rate control remains suboptimal despite amiodarone loading started 02/06 and IV Lopressor
Digoxin added on 02/09
Change Lopressor to p.o.
Reluctant to give Cardizem with reduced ejection fraction
Not ideal candidate for cardioversion given pericardial effusion seen on echo on 02/07 with necessitated heparin being stopped and not a long-term Eliquis candidate
Recheck echocardiogram to reassess pericardial effusion which was moderate in 02/07 and heparin was stopped on 02/07
Impression / Plan
-
.
Impression:
Atrial flutter with rapid ventricular response
Failure to thrive
Hyponatremia
Moderate aortic stenosis
Moderate pericardial effusion
History Pulmonary fibrosis
History rheumatoid arthritis
History Hepatitis C/cirrhosis
Hypertension
Osteoporosis
Mild cognitive defects
Echocardiogram 02/08/2024: Ejection fraction 43%, moderate with mean gradient of 12 mmHg aortic valve area 1.1 cm, moderate pericardial effusion
Plan:
Heart rate control is improved but remains suboptimal despite loading with amiodarone started on 02/07/2024 and the addition of digoxin on 02/10/2024 and IV Lopressor
Will change IV Lopressor to p.o. elected to add Cardizem with reduced ejection fraction but might consider
Heparin was stopped because of moderate pericardial effusion on 02/07 and unclear whether patient could be a candidate for Eliquis long-term, so cardioversion not ideal
Will recheck echocardiogram on 02/10 to reassess pericardial effusion
Continue IV steroids per pulmonary as patient has known pulmonary fibrosis.
Nephrology managing hyponatremia
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
Subjective
Date of Service: February 11, 2024
No complaints but appears confused
Objective
Labs:
02/11/24 04:05
02/11/24 04:05
Labs
Hgb 10.2 g/dL (12.0-16.0) L 02/11/24 04:05
Hct 30.8 % (37.0-47.0) L 02/11/24 04:05
Plt Count 164 10^3/uL (130-400) D 02/11/24 04:05
APTT Cancelled 02/08/24 10:00
Sodium 129 mmol/L (135-145) L 02/11/24 04:05
Potassium 4.3 mmol/L (3.5-5.1) 02/11/24 04:05
BUN 29 mg/dl (7-17) H 02/11/24 04:05
Creatinine 0.4 mg/dL (0.6-1.0) L 02/11/24 04:05
Glucose 93 mg/dl (70-99) 02/11/24 04:05
Vital Signs and I&O:
Vital Signs
Temp Pulse Resp BP Pulse Ox
97.6 F 118 17 120/89 95
02/11/24 06:59 02/11/24 05:19 02/11/24 02:00 02/11/24 05:19 02/11/24 02:00
Vital Signs
Temp Pulse Resp BP Pulse Ox
97.6 F 118 17 120/89 95
02/11/24 06:59 02/11/24 05:19 02/11/24 02:00 02/11/24 05:19 02/11/24 02:00
Intake & Output
02/09/24 02/10/24 02/11/24 02/12/24
06:59 06:59 06:59 06:59
Intake Total 100 / 100 600 / 600 720 / 720
Output Total 775 / 775 500 / 500 700 / 700
Balance -675 / -675 100 / 100 20 / 20
Physical Exam
Physical Exam
General: Awake but confused
Neck: Supple, no JVD, HJR, carotids +2 B/L, no bruits bilaterally.
Heart: Non displaced PMI, regular, tachycardic, no murmurs, No S3, S4, no rubs.
Lungs: Scattered rhonchi
Extremities: No clubbing, cyanosis or edema bilaterally.
Neuro: Awake but confused
--- NOTE | 2024-02-11 10:31 | W.PN.NEPH.PH ---
Today's Communication / Plan
-
Maintain fluid restriction salt tablets and Lasix
Follow-up BMP
Assessment/Plan
-
Assessment
hyponatremia.
Chronic pulmonary fibrosis.
Nausea vomiting.
Chronic pain status post left shoulder fracture previous two most recent fall with chronic NSAID use
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
Afib
Mod
mod pericardial effusion
Plan:
Hyponatremia- ADH mediated U osmo 482, U na low 15 suggest prerenal/cardiorenal with afib
sodium improved to 130 now down to 129, continue to maintain FR, encourage solute intake, lasix at 20mg daily
Afib per cards, on Amio and BB, dig added, hemodynamically labile
off heparin since pericardial effusion noted on echo-repeat on 02/10
follow bladder scan, improving PVR
steroids and abx per pulm
-
-
Date of Service: February 11, 2024
CC / HPI / ROS
-
Chief Complaint:
hyponatremia
History of Present Illness:
Na down to 129 on fluid restriction sodium tablets and Lasix
BP stable
acidosis improving bicarb at 22
Remains in A-fib with rapid ventricular response
UOP barely non oliguric , cr 0.4, PVR 75cc
wt unchanged
Review of Systems:
no active sob
+tachycardia
no dizziness
no CP
Labs
-
Labs:
WBC 8.8 10^3/uL (4.8-10.8) 02/11/24 04:05
RBC 3.48 10^6/uL (4.20-5.40) L 02/11/24 04:05
Hgb 10.2 g/dL (12.0-16.0) L 02/11/24 04:05
Hct 30.8 % (37.0-47.0) L 02/11/24 04:05
Plt Count 164 10^3/uL (130-400) D 02/11/24 04:05
Sodium 129 mmol/L (135-145) L 02/11/24 04:05
Potassium 4.3 mmol/L (3.5-5.1) 02/11/24 04:05
Chloride 99 mmol/L (98-107) 02/11/24 04:05
Carbon Dioxide 22 mmol/L (22-30) 02/11/24 04:05
BUN 29 mg/dl (7-17) H 02/11/24 04:05
Creatinine 0.4 mg/dL (0.6-1.0) L 02/11/24 04:05
eGFR > 60.00 02/11/24 04:05
Glucose 93 mg/dl (70-99) 02/11/24 04:05
Calcium 8.1 mg/dl (8.4-10.2) L 02/11/24 04:05
Iqa-F-Zldqlslopxr Pept 1650 pg/ml 02/06/24 09:04
Albumin 3.8 g/dl (3.5-5.0) 02/06/24 09:04
Physical Exam
-
Vital Signs:
Vital Signs
Temp Pulse Resp BP Pulse Ox
97.6 F 118 17 120/89 95
02/11/24 06:59 02/11/24 05:19 02/11/24 02:00 02/11/24 05:19 02/11/24 02:00
Cardiovascular:: Irregular rate and rhythm
Respiratory:: Bilateral: Rales (at bases)
Lung Excursion:: Normal
Abdomen:: Nontender and Soft
Extremity Edema:: +1: Bilateral:
Llanes Catheter: No
--- NOTE | 2024-02-11 11:12 | W.PN.PUL.V3 ---
Today's Communication / Plan
-
Wean oxygen
Gentle diuresis
Finite course of antibiotics
Recheck echocardiogram
Atrial fibrillation rate control
Assessment
-
Assessment: 79-year-old female with a past medical history of RA, pulmonary fibrosis, autoimmune hepatitis c/b cirrhosis, hypertension, and history of hepatitis C who presents with SOB. Patient apparently fell about 2 weeks ago and has been
declining since. She does follow with rheumatology for history of RA/ILD. She has been feeling 'winded' over the last several days which worsened on the day of the ER arrival. She also has lower extremity edema. Also endorses dry cough, no chest
pain, fevers or chills, or abdominal pain/diarrhea. Initially in the ER she was afebrile to 97.9 �F, tachycardic to 143 (A-fib with RVR/a-flutter), tachypneic to 24 breaths/min, BP 125 or 78 and saturating 97% on room air. Labs showed Hb 10.6,
serum sodium 120, serum chloride 88, serum bicarbonate level 21, proBNP 1650, urine sodium low at 15, and COVID-19 antigen negative. Flu A/B also negative and blood cultures collected. CXR showed bilateral interstitial pulmonary opacities with
bibasilar patchy opacities. Initial EKG showed A-flutter 2:1 conduction and she required Cardizem drip in the ER and also given 500 cc bolus of NS 0.9%. She was admitted to the IMU and now pulmonary services consulted for additional
management/recommendations.
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
Impression:
#Acute respite failure due to ILD exacerbation vs pneumonia; component of alveolar/interstitial edema in setting of A-fib with RVR also possible
#A-fib with RVR/A-flutter requiring Cardizem drip (now discontinued)
#Anemia
#Hypochloremic, hyponatremia likely due to reduced PO intake with recent vomiting over the last 2�3 nights
#Reported history of RA with pulmonary fibrosis
#History of autoimmune hepatitis complicated by cirrhosis
#History of hypertension
Plan:
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
Interstitial lung disease flare not suspected
Respiratory status slowly improving
Supplemental oxygen as needed
Aspiration precautions
Nebulizers if needed-currently not bronchospastic
Incentive spirometry
Transition to prednisone 40 mg with slow taper
Follows with pulmonary at [place]-Dr. Shine
Diuresis as tolerated
Monitor renal function, electrolytes, intake/output, lower extremity edema and weight
Replace electrolytes as needed
Cardiology following-correspondence reviewed-digoxin added
Not ideal candidate for cardioversion
Recheck echocardiogram to reassess pericardial effusion
Rhythm and rate control
Nephrology following-correspondence reviewed-maintain fluid restriction salt tablets and Lasix
Check cultures
Empiric antibiotics to finish after today
DVT prophylaxis
Nutrition with aspiration precautions
Physical therapy
Patient will follow-up with her primary premix operator concentrate, Dr. Shine, at [place].
Data:
CXR 02/06/2024:
Bilateral interstitial pulmonary opacities most compatible with chronic fibrosis. Mild patchy opacities in the lung bases raising the possibility for superimposed aspiration/pneumonia in the appropriate clinical setting.
No large pleural effusion or pneumothorax. The cardiac silhouette is mildly enlarged. Chronic degenerative changes of the spine. Chronic displaced left humeral neck fracture.
Transthoracic echocardiogram 02/08/2024:
Normal left ventricular chamber size. Normal left ventricular wall thickness.
Mildly reduced left ventricular systolic function. Left ventricular ejection
fraction is 43% by Roberts's method. Ejection fraction might be difficult to
ascertain due to to rapid atrial flutter. Diastolic function indeterminate due
to atrial fibrillation.
Thickened mitral valve leaflets. Mitral valve opens normally. Moderate mitral
regurgitation.
Trileaflet aortic valve. Calcified aortic valve. Thickened aortic valve with
restricted leaflet motion. Moderate aortic stenosis with peak/mean gradients
across the aortic valve are 21/12 mmHg. Using an LVOT diameter of 2.0 cm, the
DAPHNE = 1.1 cm2. Mild aortic regurgitation.
Moderate pericardial effusion without evidence of hemodynamic compromise. In
the anterior space it measures 1.8 cm. and posterior to the left heart it
measures 2.4 cm.
Subjective Data
-
Date of Service:
Date of Service: February 11, 2024
Chief Complaint: Pulmonary Follow Up and Dyspnea Follow Up
Subjective:
Feels about the same, has dyspnea on exertion but no shortness of breath at rest, no chest congestion, productive cough, chest pain or abdominal pain
Review of Systems
General: Other (Per HPI)
Objective Data
Data Reviewed
Vital Signs / I&O:
Vital Signs
Temp Pulse Resp BP Pulse Ox
97.6 F 118 17 120/89 95
02/11/24 06:59 02/11/24 05:19 02/11/24 02:00 02/11/24 05:19 02/11/24 02:00
Intake and Output
02/10/24 02/11/24 02/12/24
06:59 06:59 06:59
Intake Total 600 / 600 720 / 720
Output Total 500 / 500 700 / 700
Balance 100 / 100 20 / 20
SaO2: 95
Nasal Cannula flow liters per minute: 96
Physical Exam
General: Respiratory Distress (negative), Comfortable, Chills (negative) and Sweats (negative)
HEENT: Normocephalic and Anicteric
Cardiovascular: Peripheral Edema (+1 lower extremity pitting edema bilaterally) and Other (Regular and tachycardic)
Respiratory: Wheeze (negative), Crackles (Bilateral), Rhonchi (negative), Accessory Resp Muscle Use (negative) and Stridor (negative)
GI: Soft, Non Distended, Non Tender and Normal Bowel Sounds
Neurology: Awake, Alert and Tremors (negative)
Skin: Warm, Dry, Cyanosis (negative) and Jaundice (negative)
Labs/Micro/Reports
Lab Data
02/11/24 04:05
02/11/24 04:05
Microbiology
02/06/24 14:13 Blood/Venous Blood Culture - Preliminary
No Growth in 4 days- Final report to follow
02/06/24 14:13 Blood/Venous Blood Culture - Preliminary
No Growth in 4 days- Final report to follow
[2024-02-11] MEDS: LANOXIN 125 MCG PO (12:06)
[2024-02-11] MEDS: LOPRESSOR 50 MG PO ×3 (12:07→23:22)
[2024-02-11] MEDS: ROCEPHIN 1000 MG IV (12:07)
[2024-02-11] MEDS: STERILE WATER FOR INJECTION 10 ML IV (12:08)
--- NOTE | 2024-02-11 13:29 | PTCARENOTE ---
pt transferred to telemetry unit. report given to Adamaris. pt transferred with belongings.
--- NOTE | 2024-02-11 14:44 | PTCARENOTE ---
Report received and pt transferred to on tele at about 1300 hrs. Oriented to unit. VS obtained. Appears comfortable, alert, oriented, conversant denies pain or SOB at this time. Sinus tach in 120's on monitor.
--- NOTE | 2024-02-11 16:03 | CM ---
Patient from [facility] with Hx left shoulder fracture and falls. Room air. Heart rate 108-145 today. Receiving IV Abx. PT/OT recommend skilled rehab.
Spoke with patient's daughter KINZA Higgins; she discussed SNF (vs returning home to assisted living with VN) with her sister and they agree they would like patient to go to [facility] for rehab. CM agrees to make referral.
SNF referral placed.
Plan follow up with [facility] for acceptance.
[2024-02-12 03:30] VITALS: BP 132/87
[2024-02-12] MEDS: LOPRESSOR 50 MG PO ×2 (05:28→11:07)
[2024-02-12 05:44] LABS: Hematocrit 29.8 % (37.0-47.0); Hemoglobin 10.1 g/dL (12.0-16.0); Mean Corp Hgb Conc. 33.9 g/dL (33.0-37.0); Mean Corpuscular Hgb 29.4 pg (27.0-31.0); Mean Corpuscular Volume 86.9 fL (81.0-99.0); Mean Platelet Volume 10.2 fL (7.4-10.4); Platelet Count 163 10^3/uL (130-400); Red Blood Cell Count 3.43 10^6/uL (4.20-5.40); Red Cell Dist. Width 14.5 % (11.5-14.5); White Blood Cell Count 8.8 10^3/uL (4.8-10.8)
[2024-02-12 06:09] LABS: Blood Urea Nitrogen 21 mg/dl (7-17); Calcium 7.4 mg/dl (8.4-10.2); Carbon Dioxide 26 mmol/L (22-30); Chloride 95 mmol/L (98-107); Estimated Creatinine Clearance 74 ml/min; Glucose 86 mg/dl (70-99); Potassium 4.2 mmol/L (3.5-5.1); Sodium 127 mmol/L (135-145); eGFR > 60.00
[2024-02-12 07:10] VITALS: BP 129/78
[2024-02-12] MEDS: CELLCEPT 1500 MG PO ×2 (08:50→20:08)
[2024-02-12] MEDS: AZULFIDINE 1000 MG PO ×2 (08:51→20:08)
[2024-02-12] MEDS: DELTASONE 40 MG PO (08:51)
[2024-02-12] MEDS: PLAQUENIL 400 MG PO (08:51)
[2024-02-12] MEDS: LASIX 20 MG PO (08:51)
[2024-02-12] MEDS: PACERONE 400 MG PO (08:51)
[2024-02-12] MEDS: VIBRAMYCIN 100 MG PO (08:51)
[2024-02-12 10:17] VITALS: BP 135/74
--- NOTE | 2024-02-12 10:34 | W.PN.PUL.V3 ---
Today's Communication / Plan
-
Increase activity
Wean oxygen
Prednisone 40 mg-slow taper to 20 mg until seen by outpatient pulmonary physician
Assessment
-
Assessment: 79-year-old female with a past medical history of RA, pulmonary fibrosis, autoimmune hepatitis c/b cirrhosis, hypertension, and history of hepatitis C who presents with SOB. Patient apparently fell about 2 weeks ago and has been
declining since. She does follow with rheumatology for history of RA/ILD. She has been feeling 'winded' over the last several days which worsened on the day of the ER arrival. She also has lower extremity edema. Also endorses dry cough, no chest
pain, fevers or chills, or abdominal pain/diarrhea. Initially in the ER she was afebrile to 97.9 �F, tachycardic to 143 (A-fib with RVR/a-flutter), tachypneic to 24 breaths/min, BP 125 or 78 and saturating 97% on room air. Labs showed Hb 10.6,
serum sodium 120, serum chloride 88, serum bicarbonate level 21, proBNP 1650, urine sodium low at 15, and COVID-19 antigen negative. Flu A/B also negative and blood cultures collected. CXR showed bilateral interstitial pulmonary opacities with
bibasilar patchy opacities. Initial EKG showed A-flutter 2:1 conduction and she required Cardizem drip in the ER and also given 500 cc bolus of NS 0.9%. She was admitted to the IMU and now pulmonary services consulted for additional
management/recommendations.
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
Impression:
#Acute respite failure due to ILD exacerbation vs pneumonia; component of alveolar/interstitial edema in setting of A-fib with RVR also possible
#A-fib with RVR/A-flutter requiring Cardizem drip (now discontinued)
#Anemia
#Hypochloremic, hyponatremia likely due to reduced PO intake with recent vomiting over the last 2�3 nights
#Reported history of RA with pulmonary fibrosis
#History of autoimmune hepatitis complicated by cirrhosis
#History of hypertension
Plan:
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
Interstitial lung disease flare not suspected
Respiratory status slowly improving
Supplemental oxygen as needed
Aspiration precautions
Nebulizers if needed-currently not bronchospastic
Incentive spirometry
Transition to prednisone 40 mg with slow taper to 20 mg until seen by outpatient pulmonary
Follows with pulmonary at [place]-Dr. Shine
Diuresis continues as tolerated
Monitor renal function, electrolytes, intake/output, lower extremity edema and weight
Replace electrolytes as needed
Cardiology following-correspondence reviewed-digoxin added
Not ideal candidate for cardioversion
Repeat echocardiogram 02/11/2024-EF 40-45%, moderate pericardial effusion without evidence for hemodynamic compromise, no change from 02/08/2024
Rhythm and rate control
Nephrology following-correspondence reviewed-maintain fluid restriction salt tablets and Lasix
Check cultures
Empiric antibiotics to finish after today
DVT prophylaxis
Nutrition with aspiration precautions
Physical therapy
Currently respiratory status is stable-pulmonary will sign off-please call with questions
Patient will follow-up with her primary tree trimmer helper, Dr. Shine, at [place].
Data:
CXR 02/06/2024:
Bilateral interstitial pulmonary opacities most compatible with chronic fibrosis. Mild patchy opacities in the lung bases raising the possibility for superimposed aspiration/pneumonia in the appropriate clinical setting.
No large pleural effusion or pneumothorax. The cardiac silhouette is mildly enlarged. Chronic degenerative changes of the spine. Chronic displaced left humeral neck fracture.
Transthoracic echocardiogram 02/08/2024:
Normal left ventricular chamber size. Normal left ventricular wall thickness.
Mildly reduced left ventricular systolic function. Left ventricular ejection
fraction is 43% by Roberts's method. Ejection fraction might be difficult to
ascertain due to to rapid atrial flutter. Diastolic function indeterminate due
to atrial fibrillation.
Thickened mitral valve leaflets. Mitral valve opens normally. Moderate mitral
regurgitation.
Trileaflet aortic valve. Calcified aortic valve. Thickened aortic valve with
restricted leaflet motion. Moderate aortic stenosis with peak/mean gradients
across the aortic valve are 21/12 mmHg. Using an LVOT diameter of 2.0 cm, the
DAPHNE = 1.1 cm2. Mild aortic regurgitation.
Moderate pericardial effusion without evidence of hemodynamic compromise. In
the anterior space it measures 1.8 cm. and posterior to the left heart it
measures 2.4 cm.
Subjective Data
-
Date of Service:
Date of Service: February 12, 2024
Chief Complaint: Pulmonary Follow Up and Dyspnea Follow Up
Subjective:
She does not complain of any worsening shortness of breath, chest pain, abdominal pain
Review of Systems
General: Other (Per HPI)
Objective Data
Data Reviewed
Vital Signs / I&O:
Vital Signs
Temp Pulse Resp BP Pulse Ox
97.7 F 119 17 135/74 98
02/12/24 07:10 02/12/24 07:10 02/12/24 07:10 02/12/24 10:17 02/12/24 07:10
Intake and Output
02/11/24 02/12/24 02/13/24
06:59 06:59 06:59
Intake Total 720 / 720 840 / 840
Output Total 700 / 700 500 / 500
Balance 20 / 20 340 / 340
SaO2: 98
Nasal Cannula flow liters per minute: 96
Physical Exam
General: Respiratory Distress (negative), Comfortable, Chills (negative) and Sweats (negative)
HEENT: Normocephalic and Anicteric
Cardiovascular: Peripheral Edema (+1 lower extremity pitting edema bilaterally) and Other (Regular and tachycardic)
Respiratory: Wheeze (negative), Crackles (Bilateral), Rhonchi (negative), Accessory Resp Muscle Use (negative) and Stridor (negative)
GI: Soft, Non Distended, Non Tender and Normal Bowel Sounds
Neurology: Awake, Alert and Tremors (negative)
Skin: Warm, Dry, Cyanosis (negative) and Jaundice (negative)
Labs/Micro/Reports
Lab Data
02/12/24 05:22
02/12/24 05:22
Microbiology
02/06/24 14:13 Blood/Venous Blood Culture - Final
No Growth - Final Report
02/06/24 14:13 Blood/Venous Blood Culture - Final
No Growth - Final Report
[2024-02-12 10:56] VITALS: BP 144/95
[2024-02-12] MEDS: LANOXIN 125 MCG PO (11:06)
[2024-02-12] MEDS: STERILE WATER FOR INJECTION 10 ML IV (11:07)
[2024-02-12] MEDS: ROCEPHIN 1000 MG IV (11:07)
--- NOTE | 2024-02-12 12:15 | CM ---
CM received tt from fellow CM that [facility] accepted patient. CM left VM to [facility], liaison and await call back. CM will update patient family and physician with response. CM will continue to follow for discharge planning needs.
Plan; SNF; when medically appropriate.
--- NOTE | 2024-02-12 12:58 | W.PN.HOSP.TC ---
Today's Communication/Plan
-
rate control per cards
finish abx course
Assessment / Plan
Assessment / Plan
1. Acute hypoxic respiratory insufficiency - resolved
-Suspected multifactorial from underlying pulmonary fibrosis/A-fib related pulmonary edema/pneumonia
-Being treated for underlying causes as below
-Currently off of oxygen, continue monitor
2. Atrial flutter with rapid ventricular rate
-Patient was on Cardizem drip now has been switched to amiodarone loading dose.
-Heart rate not controlled and patient was started on digoxin yesterday
-Heparin drip was contraindicated due to pericardial effusion on echocardiogram
-Repeat echocardiogram did not show any significant changes in pericardial effusion
-Cardiology following and help appreciated
3. Pulmonary fibrosis
Community-acquired pneumonia
-Chest x-ray reviewed and patient have changes of pulmonary fibrosis
-Pulmonology evaluated and CT chest deferred at this point as may not policy change clerk
-Patient was on IV Decadron, has been switched to prednisone 40 mg daily
-Patient finished 5-day course of Rocephin/doxycycline
-Xopenex as needed ordered for shortness of breath
4. Pericardial effusion:
-Repeat echocardiogram did not show any significant increase in effusion size
-Cardiology to decide if requires pericardiocentesis.
5. Severe hyponatremia:
-Sodium down to 127 today
-on 40 oz FR already
-Nephrology consult appreciated
-Status post 3% saline by nephrology--> now fluid restriction and solute intake
6. Essential Hypertension
Episode of hypotension
-Off of losartan/amlodipine. Will need to maximize rate control medication for A-fib before starting pure anti-HTN meds.
7. Nausea and vomiting -resolved
-Suspect viral gastroenteritis
-Monitor for recurrent symptoms
8. Chronic anemia
-Hemoglobin stable at 9.9 today
-Continue to monitor hemoglobin closely
9/ Rheumatoid arthritis/pulmonary fibrosis/autoimmune hepatitis with liver cirrhosis:
Continue mycophenolate 1500 mg twice a day and hydroxychloroquine 400 mg p.o. daily and sulfasalazine 1000 mg twice a day
10. Chronic left shoulder fracture and falls:
Avoid NSAIDs due to hyponatremia
Tylenol prn
DVT prophylaxis: scd
CODE STATUS: Full code
Anticipated Discharge: 24 - 48 hours
Subjective/Interval History
-
Date of Service: February 12, 2024
Heart rate remains uncontrolled at times
Patient is asymptomatic
No reported dyspnea/hypoxia
Objective Data
-
Labs:
Laboratory Results
02/12/24
05:22
WBC 8.8
Hgb 10.1 L
Hct 29.8 L
Plt Count 163
Sodium 127 L
Potassium 4.2
Chloride 95 L
Carbon Dioxide 26
BUN 21 H
Creatinine 0.5 L
Glucose 86
Calcium 7.4 L
Vital Signs:
Vital Signs
Temp Pulse Resp BP Pulse Ox
97.9 F 121 17 144/95 96
02/12/24 10:56 02/12/24 11:06 02/12/24 10:56 02/12/24 10:56 02/12/24 10:56
I&O
02/11/24 02/12/24 02/13/24
06:59 06:59 06:59
Intake Total 720 / 720 840 / 840
Output Total 700 / 700 500 / 500
Balance 20 / 20 340 / 340
Review of Systems
-
Respiratory: Reports No Symptoms
Cardiac: Reports No Symptoms
Abdomen/GI: Reports No Symptoms
Physical Exam
-
General: Comfortable and Cachectic
HEENT: Negative Oxygen
Respiratory: Clear to Auscultation
Cardiac: S1/S2, Irregular Rhythm and Tachycardic; Negative Murmur or Rub
GI: Soft and Nontender
Musculoskeletal: No Edema
Neuro: Awake, Alert, Oriented, No Motor Deficits and Nonfocal/Grossly Intact
Psych: Calm
--- NOTE | 2024-02-12 13:16 | CM ---
[facility] kohli initiated for [facility] NPI# [id number]
Dr Maribel Sims NPI# [id number]
Pended reference# [id number]
questionnaire completed
clinicals faxed to [phone]
--- NOTE | 2024-02-12 13:59 | PN.CDI ---
CDI
- -
CDI:
Physician Documentation Request
Admit Date: 02/06/24 12:43
Dear Doctor Kyaw,
Please review the following and provide your response in the progress notes.
Clinical Indicators:
PN, 02/10
#5. Severe hyponatremia:
#...-Sodium remains at 130 today
#...-Status post 3% saline by nephrology--> now fluid restriction and solute intake
Nephrology, PN, 02/10
#Hyponatremia- ADH mediated U osmo 482,
#...U na low 15 suggest prerenal/cardiorenal with afib
#...sodium improved to 130 now down to 129, continue to maintain FR,
#...encourage solute intake, lasix at 20mg daily
Based on the above and your clinical assessment, please clarify in the progress notes, the appropriate diagnosis, if significant, that supports the above abnormalities and additional evaluation, monitoring and/or treatment rendered:
SIADH
Inappropriate secretion of ADH
Hyponatremia only
Other(please specify)
Use of terms such as suspected, likely, concern for, or probable (associated with a specific diagnosis that is being evaluated, monitored, or treated as if it exists) are acceptable and can be coded in the inpatient setting, when documented at the
time of discharge.
Thank you,
Divine Childs RN BSN CCDS
CDI Specialist
please contact via tiger text
Please use your independent medical judgment in providing your response.
--- NOTE | 2024-02-12 14:09 | W.PN.CARDCBS ---
Addendum entered and electronically signed by Donald Garrett DO 02/12/24 21:32:
I saw and examined the patient.
The Project Geophysicist's note was reviewed and I agree with the note.
Comment:
Plan:
Change Toprol to 100 mg BID for better rate control
Reduce Amiodarone (hold today and lower to 200 mg BID starting tomorrow) as she received an adequate load.
Cont Dig for now but may consider Cardizem tomorrow if HR remain suboptimal
D/C Norvasc
Monitor pericardial effusion. Reviewed with interventional cardiology
Not currently an anticoagulation.
Hyponatremia management as per nephrology
Pulm managing steroids
Discussed with primary service
Original Note:
Today's Communication / Plan
-
decrease amio
change lopressor to toprol
continue dig. may need to use cardizem cd
follow mod pericardial effusion
Impression / Plan
-
.
Impression:
Presentation with SOB
Acute hypoxic respiratory insufficiency
Atrial flutter with rapid ventricular response
Failure to thrive
Hyponatremia
Moderate aortic stenosis
Moderate pericardial effusion
History Pulmonary fibrosis
History rheumatoid arthritis
History Hepatitis C/cirrhosis
Hypertension
Osteoporosis
Mild cognitive defects
Echocardiogram 02/08/2024: Ejection fraction 43%, moderate with mean gradient of 12 mmHg aortic valve area 1.1 cm, moderate pericardial effusion
Plan:
-she presented with FTT and SOB and found to be in aflutter with RVR.
-HR control has been difficult. currently on lopressor, amiodarone, and digoxin and HRs still suboptimal.
-given EF ~45%, will transition lopressor to toprol 100mg BID. as has received 6gram load of amiodarone thus far, will decrease dose to 200mg BID starting tomorrow
-dig started 02/10, consider dig level in next 24-48 hours if continued
-with mildly reduced EF, however if cardizem needed for HR control, would consider
-she has stable mod pericardial effusion by echo 02/07 and 02/10. IV heparin was stopped on 02/07 with this finding. unclear if good candidate for pericardiocentesis.
-TSH WNL
-proBNP 1650. on po lasix 20mg daily, her OP dosing. no clear CHF by CXR.
-hyponatremia mgmt per nephrology
-pulm following given history of pulm fibrosis. on steroids. SOB felt to be multifactorial
Progress Note - Loan Representative
Subjective
Date of Service: February 12, 2024
no issues overnight
Objective
Labs:
02/12/24 05:22
02/12/24 05:22
Labs
Hgb 10.1 g/dL (12.0-16.0) L 02/12/24 05:22
Hct 29.8 % (37.0-47.0) L 02/12/24 05:22
Plt Count 163 10^3/uL (130-400) 02/12/24 05:22
APTT Cancelled 02/08/24 10:00
Sodium 127 mmol/L (135-145) L 02/12/24 05:22
Potassium 4.2 mmol/L (3.5-5.1) 02/12/24 05:22
BUN 21 mg/dl (7-17) H 02/12/24 05:22
Creatinine 0.5 mg/dL (0.6-1.0) L 02/12/24 05:22
Glucose 86 mg/dl (70-99) 02/12/24 05:22
Vital Signs and I&O:
Vital Signs
Temp Pulse Resp BP Pulse Ox
97.9 F 121 17 144/95 96
02/12/24 10:56 02/12/24 11:06 02/12/24 10:56 02/12/24 10:56 02/12/24 10:56
Vital Signs
Temp Pulse Resp BP Pulse Ox
97.9 F 121 17 144/95 96
02/12/24 10:56 02/12/24 11:06 02/12/24 10:56 02/12/24 10:56 02/12/24 10:56
Intake & Output
02/10/24 02/11/24 02/12/24 02/13/24
07:59 07:59 07:59 07:59
Intake Total 600 / 600 720 / 720 840 / 840
Output Total 500 / 500 700 / 700 500 / 500
Balance 100 / 100 20 / 20 340 / 340
Physical Exam
Physical Exam
GEN: No distress, awake. sitting in chair
HEENT: supple, mmm
CV: Irreg rhythm on tele
SKIN: Warm, pink, dry. No rash
[2024-02-12 15:12] VITALS: BP 132/85
--- NOTE | 2024-02-12 16:10 | W.PN.NEPH.PH ---
Today's Communication / Plan
-
Samsca 7.5 mg p.o. x 1
Assessment/Plan
-
Assessment
hyponatremia.
Chronic pulmonary fibrosis.
Nausea vomiting.
Chronic pain status post left shoulder fracture previous two most recent fall with chronic NSAID use
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
Afib
Mod
mod pericardial effusion
Plan:
Hyponatremia- ADH mediated U osmo 482, U na low 15 suggest prerenal/cardiorenal with afib
sodium improved to 130 now down to 127, continue to maintain FR, encourage solute intake, lasix at 20mg daily
Will provide small dose of Samsca 7.5 mg today
Afib per cards, on Amio and BB, dig added, hemodynamically labile as heart rate remains elevated
off heparin since pericardial effusion noted on echo-repeat on 02/10
follow bladder scan, improving PVR
steroids and abx per pulm
-
-
Date of Service: February 12, 2024
CC / HPI / ROS
-
Chief Complaint:
hyponatremia
History of Present Illness:
Na down to 127 on fluid restriction sodium tablets and Lasix
BP stable
acidosis improving bicarb at 22
Remains in A-fib with rapid ventricular response
UOP barely non oliguric , cr 0.4, PVR 75cc
wt unchanged
Review of Systems:
no active sob
+tachycardia
no dizziness
no CP
Labs
-
Labs:
WBC 8.8 10^3/uL (4.8-10.8) 02/12/24 05:22
RBC 3.43 10^6/uL (4.20-5.40) L 02/12/24 05:22
Hgb 10.1 g/dL (12.0-16.0) L 02/12/24 05:22
Hct 29.8 % (37.0-47.0) L 02/12/24 05:22
Plt Count 163 10^3/uL (130-400) 02/12/24 05:22
Sodium 127 mmol/L (135-145) L 02/12/24 05:22
Potassium 4.2 mmol/L (3.5-5.1) 02/12/24 05:22
Chloride 95 mmol/L (98-107) L 02/12/24 05:22
Carbon Dioxide 26 mmol/L (22-30) 02/12/24 05:22
BUN 21 mg/dl (7-17) H 02/12/24 05:22
Creatinine 0.5 mg/dL (0.6-1.0) L 02/12/24 05:22
eGFR > 60.00 02/12/24 05:22
Glucose 86 mg/dl (70-99) 02/12/24 05:22
Calcium 7.4 mg/dl (8.4-10.2) L 02/12/24 05:22
Wer-O-Uurtngmplmm Pept 1650 pg/ml 02/06/24 09:04
Albumin 3.8 g/dl (3.5-5.0) 02/06/24 09:04
Physical Exam
-
Vital Signs:
Vital Signs
Temp Pulse Resp BP Pulse Ox
97.6 F 123 16 132/85 97
02/12/24 15:12 02/12/24 15:12 02/12/24 15:12 02/12/24 15:12 02/12/24 15:12
Cardiovascular:: Irregular rate and rhythm (Tachy)
Respiratory:: Bilateral: Rales (at bases)
Lung Excursion:: Normal
Abdomen:: Nontender and Soft
Extremity Edema:: +1: Bilateral:
Llanes Catheter: No
[2024-02-12] MEDS: SAMSCA 7.5 MG PO (16:43)
[2024-02-12] MEDS: TOPROL XL 100 MG PO (20:09)
[2024-02-12 23:28] VITALS: BP 117/80
[2024-02-13] VITALS (8 sets, daily range): BP systolic 110–149; BP diastolic 53–92; PULSE 86; BMI 24.1
[2024-02-13 05:46] LABS: Hematocrit 31.2 % (37.0-47.0); Hemoglobin 10.7 g/dL (12.0-16.0); Mean Corp Hgb Conc. 34.3 g/dL (33.0-37.0); Mean Corpuscular Hgb 29.6 pg (27.0-31.0); Mean Corpuscular Volume 86.4 fL (81.0-99.0); Mean Platelet Volume 9.7 fL (7.4-10.4); Platelet Count 171 10^3/uL (130-400); Red Blood Cell Count 3.61 10^6/uL (4.20-5.40); Red Cell Dist. Width 14.6 % (11.5-14.5); White Blood Cell Count 9.6 10^3/uL (4.8-10.8)
[2024-02-13 06:02] LABS: Blood Urea Nitrogen 18 mg/dl (7-17); Calcium 7.8 mg/dl (8.4-10.2); Carbon Dioxide 29 mmol/L (22-30); Chloride 95 mmol/L (98-107); Estimated Creatinine Clearance 74 ml/min; Glucose 89 mg/dl (70-99); Potassium 4.1 mmol/L (3.5-5.1); Sodium 129 mmol/L (135-145); eGFR > 60.00
[2024-02-13] MEDS: TOPROL XL 100 MG PO ×2 (07:30→23:14)
[2024-02-13] MEDS: PACERONE 200 MG PO ×2 (07:30→21:03)
[2024-02-13] MEDS: CELLCEPT 1500 MG PO ×2 (07:30→21:04)
[2024-02-13] MEDS: DELTASONE 40 MG PO (07:30)
[2024-02-13] MEDS: AZULFIDINE 1000 MG PO ×2 (07:30→21:03)
[2024-02-13] MEDS: PLAQUENIL 400 MG PO (07:30)
[2024-02-13] MEDS: LASIX 20 MG PO (07:31)
--- NOTE | 2024-02-13 08:56 | CM ---
Addendum entered by Rachel Fuentes 02/13/24 12:07:
CM spoke with patient daughter and update provided. Physician indicated patient no discharge today, pending medication changes. CM will update [facility] and continue to follow for discharge planning needs.
Plan; transfer to [facility] when medically appropriate
Addendum entered by Rachel Fuentes 02/13/24 10:38:
Patient seen at bedside and she indicated that she was happy with discharge plan and CM to call patient daughterGisela to provide update.
Original Note:
Auth obtained today from [facility]. Referrence number [id number], for 02/12-02/18 sub acute level I. Patient physician updated, await assessment. Facility updated and aware of auth. Report number [phone] fax [phone]. CM will update family and
patient. CM will continue to follow for discharge planning needs.
Plan; SNF when medically appropriate.
--- NOTE | 2024-02-13 10:47 | W.PN.CARDCBS ---
Today's Communication / Plan
-
HR remains elevated, add cardizem and monitor HRs
Impression / Plan
-
Impression:
Presentation with SOB
Acute hypoxic respiratory insufficiency
Atrial flutter with rapid ventricular response
Failure to thrive
Hyponatremia
Moderate aortic stenosis
Moderate pericardial effusion
History Pulmonary fibrosis
History rheumatoid arthritis
History Hepatitis C/cirrhosis
Hypertension
Osteoporosis
Mild cognitive defects
Echocardiogram 02/08/2024: Ejection fraction 43%, moderate with mean gradient of 12 mmHg aortic valve area 1.1 cm, moderate pericardial effusion
Plan:
-Presented with FTT and SOB and found to be in aflutter with RVR.
-HR control has been difficult. currently on lopressor, amiodarone, and digoxin and HRs still suboptimal.
-Add cardizem for additional HR control and monitor for signs of CHF given mildly reduced LVEF
-she has stable mod pericardial effusion by echo 02/07 and 02/10. IV heparin was stopped on 02/07 with this finding. unclear if good candidate for pericardiocentesis.
-proBNP 1650. Cont home po lasix 20mg daily.
-hyponatremia mgmt per nephrology
-pulm following given history of pulm fibrosis. on steroids. SOB felt to be multifactorial
Progress Note - Director Custom
Subjective
Date of Service: February 13, 2024
NAOE. Resting comfortably OOB to chair. No cardiac complaints. No palps, unaware of elevated HR.
Objective
Labs:
02/13/24 05:11
02/13/24 05:11
Labs
Hgb 10.7 g/dL (12.0-16.0) L 02/13/24 05:11
Hct 31.2 % (37.0-47.0) L 02/13/24 05:11
Plt Count 171 10^3/uL (130-400) 02/13/24 05:11
APTT Cancelled 02/08/24 10:00
Sodium 129 mmol/L (135-145) L 02/13/24 05:11
Potassium 4.1 mmol/L (3.5-5.1) 02/13/24 05:11
BUN 18 mg/dl (7-17) H 02/13/24 05:11
Creatinine 0.5 mg/dL (0.6-1.0) L 02/13/24 05:11
Glucose 89 mg/dl (70-99) 02/13/24 05:11
Vital Signs and I&O:
Vital Signs
Temp Pulse Resp BP Pulse Ox
97.7 F 129 16 116/83 95
02/13/24 07:43 02/13/24 07:43 02/13/24 07:43 02/13/24 07:43 02/13/24 07:43
Vital Signs
Temp Pulse Resp BP Pulse Ox
97.7 F 129 16 116/83 95
02/13/24 07:43 02/13/24 07:43 02/13/24 07:43 02/13/24 07:43 02/13/24 07:43
Intake & Output
02/11/24 02/12/24 02/13/24 02/14/24
06:59 06:59 06:59 06:59
Intake Total 720 / 720 840 / 840 1320 / 1320
Output Total 700 / 700 500 / 500
Balance 20 / 20 340 / 340 1320 / 1320
Physical Exam
Physical Exam
Gen: NAD, AA
HEENT: NC/AT, sclera anicteric
Neck: No JVD
CV: tachy, regular
Lungs: CTAB
Abd: S/ND
Ext: 1+ pitting LE edema
Skin: Warm, dry
Neuro: Non-focal
--- NOTE | 2024-02-13 11:20 | WOUNDNOTE ---
[facility] RN Note: Patient seen during weekly rounds with cancer registry manager Bere d/t LOS >5 days, patient admitted with sacral stage 1 pressure injury. Sacrum with small red stage 1 pressure injury with some thick dry skin. Heels blanchable mild red and
intact. Patient transferred from [facility] and back with assistance from cancer registry manager Bere. Silicone border foam applied to sacrum. Protective foam applied to heels. Air chair cushion given. Patient has a [facility] air bed. Discussed with RN
Ana M. Patient's po intake documented >50% for the most part. Patient for possible discharge today as per Ana M. Instructed patient pressure injury prevention measures and to take air chair cushion when discharged.
[2024-02-13] MEDS: CARDIZEM CD 120 MG PO ×2 (11:36→21:04)
[2024-02-13] MEDS: LANOXIN 125 MCG PO (11:37)
--- NOTE | 2024-02-13 14:15 | W.PN.NEPH.PH ---
Today's Communication / Plan
-
follow labs
Assessment/Plan
-
Assessment
hyponatremia.
Chronic pulmonary fibrosis.
Nausea vomiting.
Chronic pain status post left shoulder fracture previous two most recent fall with chronic NSAID use
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
Afib
Mod
mod pericardial effusion
Plan:
Hyponatremia- ADH mediated U osmo 482, U na low 15 suggest prerenal/cardiorenal with afib
sodium improved to 130 now down to 127, [facility]
continue to maintain FR, encourage solute intake, lasix at 20mg daily
Afib per cards, on Amio and BB, dig added, hemodynamically labile as heart rate remains elevated
off heparin since pericardial effusion noted on echo-repeat on 02/10-no change
follow bladder scan
steroids and abx per pulm
-
-
Date of Service: February 13, 2024
CC / HPI / ROS
-
Chief Complaint:
hyponatremia
History of Present Illness:
Na up at 129 [facility], on fluid restriction sodium tablets and Lasix
BP stable
acidosis resolved
Remains in A-fib with rapid ventricular response
UOP not measured, cr 0.65, PVR was 75cc
wt is up
Review of Systems:
no active sob
+tachycardia
no dizziness
no CP
Labs
-
Labs:
WBC 9.6 10^3/uL (4.8-10.8) 02/13/24 05:11
RBC 3.61 10^6/uL (4.20-5.40) L 02/13/24 05:11
Hgb 10.7 g/dL (12.0-16.0) L 02/13/24 05:11
Hct 31.2 % (37.0-47.0) L 02/13/24 05:11
Plt Count 171 10^3/uL (130-400) 02/13/24 05:11
Sodium 129 mmol/L (135-145) L 02/13/24 05:11
Potassium 4.1 mmol/L (3.5-5.1) 02/13/24 05:11
Chloride 95 mmol/L (98-107) L 02/13/24 05:11
Carbon Dioxide 29 mmol/L (22-30) 02/13/24 05:11
BUN 18 mg/dl (7-17) H 02/13/24 05:11
Creatinine 0.5 mg/dL (0.6-1.0) L 02/13/24 05:11
eGFR > 60.00 02/13/24 05:11
Glucose 89 mg/dl (70-99) 02/13/24 05:11
Calcium 7.8 mg/dl (8.4-10.2) L 02/13/24 05:11
Tmw-Y-Wcegecyjijs Pept 1650 pg/ml 02/06/24 09:04
Albumin 3.8 g/dl (3.5-5.0) 02/06/24 09:04
Physical Exam
-
Vital Signs:
Vital Signs
Temp Pulse Resp BP Pulse Ox
97.7 F 130 17 110/71 96
02/13/24 07:43 02/13/24 11:39 02/13/24 11:39 02/13/24 11:39 02/13/24 11:39
Cardiovascular:: Irregular rate and rhythm
Lung Excursion:: Normal (decreased)
Abdomen:: Nontender and Soft
Extremity Edema:: +1: Bilateral:
Llanes Catheter: No
--- NOTE | 2024-02-13 14:16 | W.PN.HOSP.TC ---
Addendum entered and electronically signed by Eladio Card MD 02/14/24 07:50:
Euvolemic hyponatremia from ADH excess
Original Note:
Today's Communication/Plan
-
decrease prednisone dose
rate control per cards
Assessment / Plan
Assessment / Plan
1. Acute hypoxic respiratory insufficiency - resolved
-Suspected multifactorial from underlying pulmonary fibrosis/A-fib related pulmonary edema/pneumonia
-Being treated for underlying causes as below
-Currently off of oxygen, continue monitor
2. Atrial flutter with rapid ventricular rate
-Currently on regimen of amiodarone/digoxin/metoprolol/diltiazem
-Patient was on Cardizem drip now has been switched to amiodarone loading dose.
-Heart rate not controlled and patient was started on digoxin
-Heparin drip was contraindicated due to pericardial effusion on echocardiogram
-Repeat echocardiogram did not show any significant changes in pericardial effusion
-Cardiology following and help appreciated
3. Pulmonary fibrosis
Community-acquired pneumonia
-Chest x-ray reviewed and patient have changes of pulmonary fibrosis
-Pulmonology evaluated and CT chest deferred at this point as may not change management manager
-Patient was on IV Decadron, has been switched to prednisone 40 mg daily
-Patient finished 5-day course of Rocephin/doxycycline
-Xopenex as needed ordered for shortness of breath
4. Pericardial effusion:
-Repeat echocardiogram did not show any significant increase in effusion size
-Cardiology to decide if requires pericardiocentesis.
5. Severe hyponatremia:
-Sodium down to 127 today
-on 40 oz FR already
-Nephrology consult appreciated
-Status post 3% saline by nephrology--> now fluid restriction and solute intake
6. Essential Hypertension
Episode of hypotension
-Off of losartan/amlodipine. Will need to maximize rate control medication for A-fib before starting pure anti-HTN meds.
7. Nausea and vomiting -resolved
-Suspect viral gastroenteritis
-Monitor for recurrent symptoms
8. Chronic anemia
-Hemoglobin stable at 9.9 today
-Continue to monitor hemoglobin closely
9. Rheumatoid arthritis/pulmonary fibrosis/autoimmune hepatitis with liver cirrhosis:
Continue mycophenolate 1500 mg twice a day and hydroxychloroquine 400 mg p.o. daily and sulfasalazine 1000 mg twice a day
10. Chronic left shoulder fracture and falls:
Avoid NSAIDs due to hyponatremia
Tylenol prn
DVT prophylaxis: scd
CODE STATUS: Full code
Anticipated Discharge: 24 - 48 hours
Subjective/Interval History
-
Date of Service: February 13, 2024
having some chest discomfort
no dyspnea
HR remains uncontrolled
Objective Data
-
Labs:
Laboratory Results
02/13/24
05:11
WBC 9.6
Hgb 10.7 L
Hct 31.2 L
Plt Count 171
Sodium 129 L
Potassium 4.1
Chloride 95 L
Carbon Dioxide 29
BUN 18 H
Creatinine 0.5 L
Glucose 89
Calcium 7.8 L
Vital Signs:
Vital Signs
Temp Pulse Resp BP Pulse Ox
97.7 F 130 17 110/71 96
02/13/24 07:43 02/13/24 11:39 02/13/24 11:39 02/13/24 11:39 02/13/24 11:39
I&O
02/12/24 02/13/24 02/14/24
06:59 06:59 06:59
Intake Total 840 / 840 1320 / 1320
Output Total 500 / 500
Balance 340 / 340 1320 / 1320
Review of Systems
-
Respiratory: Reports Trouble Breathing
Cardiac: Reports No Symptoms
Abdomen/GI: Reports No Symptoms
Physical Exam
-
General: Comfortable and Cachectic
HEENT: Negative Oxygen
Respiratory: Clear to Auscultation
Cardiac: S1/S2, Irregular Rhythm and Tachycardic; Negative Murmur or Rub
GI: Soft and Nontender
Musculoskeletal: No Edema
Neuro: Awake, Alert, Oriented, No Motor Deficits and Nonfocal/Grossly Intact
Psych: Calm
[2024-02-14 03:38] VITALS: BP 114/91
[2024-02-14 05:52] LABS: Hematocrit 31.1 % (37.0-47.0); Hemoglobin 10.4 g/dL (12.0-16.0); Mean Corp Hgb Conc. 33.4 g/dL (33.0-37.0); Mean Corpuscular Hgb 29.3 pg (27.0-31.0); Mean Corpuscular Volume 87.6 fL (81.0-99.0); Mean Platelet Volume 9.8 fL (7.4-10.4); Platelet Count 164 10^3/uL (130-400); Red Blood Cell Count 3.55 10^6/uL (4.20-5.40)
[2024-02-14 06:00] VITALS: BMI 23.9
[2024-02-14 06:15] LABS: Blood Urea Nitrogen 19 mg/dl (7-17); Calcium 7.9 mg/dl (8.4-10.2); Carbon Dioxide 30 mmol/L (22-30); Chloride 94 mmol/L (98-107); Estimated Creatinine Clearance 74 ml/min; Glucose 96 mg/dl (70-99); Magnesium 1.6 mg/dl (1.6-2.3); Potassium 4.2 mmol/L (3.5-5.1); Sodium 127 mmol/L (135-145); eGFR > 60.00
[2024-02-14 07:43] VITALS: BP 122/81
[2024-02-14] MEDS: AZULFIDINE 1000 MG PO ×2 (08:28→20:38)
[2024-02-14] MEDS: PACERONE 200 MG PO ×2 (08:28→20:38)
[2024-02-14] MEDS: CARDIZEM CD 120 MG PO ×2 (08:28→20:38)
[2024-02-14] MEDS: TOPROL XL 100 MG PO ×2 (08:29→22:03)
[2024-02-14] MEDS: DELTASONE 30 MG PO (08:29)
[2024-02-14] MEDS: CELLCEPT 1500 MG PO ×2 (08:33→20:38)
[2024-02-14] MEDS: PLAQUENIL 400 MG PO (08:34)
[2024-02-14] MEDS: LASIX 20 MG PO (08:36)
--- NOTE | 2024-02-14 10:23 | PTCARENOTE ---
Pt. tele alarming for v-tach, 46 beat run. This RN immediately to bedside, pt asymptomatic resting in bed. Cardiology and hospitalist made aware.
--- NOTE | 2024-02-14 10:43 | CM ---
Patient seen at bedside. Patient for possible transfer to [facility] when medically appropriate. CM will continue to follow for discharge planning needs.
Plan; transfer to SNF; [facility] Auth in place pending physician assessment
[2024-02-14 10:49] VITALS: BP 105/60
--- NOTE | 2024-02-14 10:59 | W.PN.CARDCBS ---
Addendum entered and electronically signed by Catrachito Gómez MD 02/14/24 17:06:
79-year-old woman with numerous comorbidities admitted with failure to thrive and found to have a sodium of 120 with atrial flutter and rapid ventricular response, with HFrEF with mildly reduced EF, proBNP 1650, moderate aortic stenosis and
pericardial effusion. currently she denies complaints receiving Samsca today.
PMH: Pulmonary fibrosis, RA, hepatitis C with cirrhosis and cognitive impairment.
Rate has been difficult to control. She is now on amiodarone, diltiazem, digoxin and metoprolol.
Moderate pericardial effusion has been stable by echo on February 07 and February 10. Pericardial effusion has precluded anticoagulation.
100/61, pulse 118, resp rate 16, weight is 71.35 kg essentially unchanged since admission, no distress, when sitting upright neck veins are not markedly elevated, head neck exam markable, lungs are relatively clear, regular rate is irregular with
controlled, abdomen is benign, extremities without much edema
Hemoglobin 10.4, sodium 127, BUN and creatinine are 19 and 0.5
Impression: See below
Plan:
She seems relatively stable at this time and heart rate is better controlled on amiodarone, diltiazem, digoxin, metoprolol
Ideally, we would begin anticoagulation and consider yazidism of sinus rhythm. However with pericardial effusion this is problematic. Furthermore, at present there is not clear-cut evidence of tamponade, though neck veins were elevated when
supine, better sitting up. Given her comorbidities, utility of an aggressive approach is unclear.
Her wide-complex tachycardia likely represented aberrancy rather than VT.
Diuretics per nephrology. Furosemide is on hold but she received Samsca.
Addendum entered and electronically signed by Daisha Dejesus PA-C 02/14/24 11:47:
check dig level in AM
Original Note:
Today's Communication / Plan
-
follow rhythm/HR control
IV lasix 20mg x1
replete mag
Impression / Plan
-
Impression:
Presentation with SOB
Acute hypoxic respiratory insufficiency
Atrial flutter with rapid ventricular response
Failure to thrive
Hyponatremia
Moderate aortic stenosis
Moderate pericardial effusion
History Pulmonary fibrosis
History rheumatoid arthritis
History Hepatitis C/cirrhosis
Hypertension
Osteoporosis
Mild cognitive defects
Echocardiogram 02/08/2024: Ejection fraction 43%, moderate with mean gradient of 12 mmHg aortic valve area 1.1 cm, moderate pericardial effusion
Plan:
-Presented with FTT and SOB and found to be in aflutter with RVR.
-HR trends overall appear to be improving. continue lopressor, amiodarone, digoxin, and cardizem cd 120mg BID added 02/12
-had 46 beat run of suspected aberrant conduction as patient was asymptomatic, alternative would be NSVT. K stable. will replete mag
-she has stable mod pericardial effusion by echo 02/07 and 02/10. IV heparin was stopped on 02/07 with this finding. unclear if good candidate for pericardiocentesis.
-appears to be volume overloaded on exam today. has been getting OP dose of po lasix 20mg daily. would give IV lasix 20mg this afternoon and reassess volume status in AM
-hyponatremia mgmt per nephrology
-pulm placed patient on steroids given history of pulm fibrosis. SOB felt to be multifactorial
-d/w nursing
Progress Note - Pe Electrical Engineer
Subjective
Date of Service: February 14, 2024
no complaints
Objective
Labs:
02/14/24 05:18
02/14/24 05:18
Labs
Hgb 10.4 g/dL (12.0-16.0) L 02/14/24 05:18
Hct 31.1 % (37.0-47.0) L 02/14/24 05:18
Plt Count 164 10^3/uL (130-400) 02/14/24 05:18
APTT Cancelled 02/08/24 10:00
Sodium 127 mmol/L (135-145) L 02/14/24 05:18
Potassium 4.2 mmol/L (3.5-5.1) 02/14/24 05:18
BUN 19 mg/dl (7-17) H 02/14/24 05:18
Creatinine 0.5 mg/dL (0.6-1.0) L 02/14/24 05:18
Glucose 96 mg/dl (70-99) 02/14/24 05:18
Vital Signs and I&O:
Vital Signs
Temp Pulse Resp BP Pulse Ox
97.9 F 123 19 105/60 98
02/14/24 10:49 02/14/24 10:49 02/14/24 10:49 02/14/24 10:49 02/14/24 10:49
Vital Signs
Temp Pulse Resp BP Pulse Ox
97.9 F 123 19 105/60 98
02/14/24 10:49 02/14/24 10:49 02/14/24 10:49 02/14/24 10:49 02/14/24 10:49
Intake & Output
02/12/24 02/13/24 02/14/24 02/15/24
07:59 07:59 07:59 07:59
Intake Total 840 / 840 1320 / 1320 300 / 300
Output Total 500 / 500
Balance 340 / 340 1320 / 1320 300 / 300
Physical Exam
Physical Exam
GEN: No distress, awake, alert, oriented to self
HEENT: supple, anicteric, mmm, eomi
LUNGS: CTA B/L, no wheezes
CV: Irreg irreg, S1/S2, no murmur
ABD: soft, BS+, NT/ND
EXT: No cyanosis, clubbing. 1+ edema of B/L LE
NEURO: Gross non-focal
SKIN: Warm, pink, dry. No rash
--- NOTE | 2024-02-14 11:15 | WOUNDNOTE ---
[facility] RN note: During prevalence rounds, NATALIYA Akbar from the prevalence team noted a superficial lower coccyx opening. After discussion with NATALIYA Akbar and Ana M suspect ulcer is related to moisture. Silicone border foam changed on sacral/coccyx. Sacral
buttocks blanchable red. Patient can turn self in bed. Patient instructed frequent turning and repositioning and heel elevation. Patient turned self to L semi side lying position, propped pillows at patient's side with NATALIYA Viramontes. Heels off bed with a
pillow. Air chair cushion in place. Patient is on a [employer] Accumax. Patient for possible transfer to SNF rehab today. Ana M plans to add a bariatric air chair cushion for patient's sacrum in bed or switch bed to an air bed if patient not
discharged today. Patient reports a good appetite.
[2024-02-14] MEDS: MAGNESIUM SULFATE 50 IV (11:36)
--- NOTE | 2024-02-14 11:45 | WOUNDNOTE ---
COCCYX (sacral/buttocks blanchable red)
[2024-02-14] MEDS: LANOXIN 125 MCG PO (12:16)
[2024-02-14 14:59] VITALS: BP 108/61
--- NOTE | 2024-02-14 16:56 | W.PN.NEPH.PH ---
Today's Communication / Plan
-
samsca today, labs in am
Assessment/Plan
-
Assessment
hyponatremia.
Chronic pulmonary fibrosis.
Nausea vomiting.
Chronic pain status post left shoulder fracture previous two most recent fall with chronic NSAID use
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
Afib
Mod
mod pericardial effusion
Plan:
Hyponatremia- ADH mediated U osmo 482, U na low 15 suggest prerenal/cardiorenal with afib
sodium down to 127, will give samsca again
continue to maintain FR, encourage solute intake, lasix at 20mg daily
Afib per cards, on Amio and BB, dig added, hemodynamically labile as heart rate remains elevated
pericardial effusion noted on echo-repeat on 02/10-no change
follow bladder scan
steroids and abx per pulm
-
-
Date of Service: February 14, 2024
CC / HPI / ROS
-
Chief Complaint:
hyponatremia
History of Present Illness:
Na sown to 127 s/p smasca on 02/11, on fluid restriction sodium tablets and Lasix
BP stable, soft
Remains in A-fib with rapid ventricular response
UOP not measured, cr 0.5, PVR was 75cc
wt stable
Review of Systems:
no active sob or cp
+tachycardia-improving
no dizziness
no CP
Labs
-
Labs:
WBC 10.0 10^3/uL (4.8-10.8) 02/14/24 05:18
RBC 3.55 10^6/uL (4.20-5.40) L 02/14/24 05:18
Hgb 10.4 g/dL (12.0-16.0) L 02/14/24 05:18
Hct 31.1 % (37.0-47.0) L 02/14/24 05:18
Plt Count 164 10^3/uL (130-400) 02/14/24 05:18
Sodium 127 mmol/L (135-145) L 02/14/24 05:18
Potassium 4.2 mmol/L (3.5-5.1) 02/14/24 05:18
Chloride 94 mmol/L (98-107) L 02/14/24 05:18
Carbon Dioxide 30 mmol/L (22-30) 02/14/24 05:18
BUN 19 mg/dl (7-17) H 02/14/24 05:18
Creatinine 0.5 mg/dL (0.6-1.0) L 02/14/24 05:18
eGFR > 60.00 02/14/24 05:18
Glucose 96 mg/dl (70-99) 02/14/24 05:18
Calcium 7.9 mg/dl (8.4-10.2) L 02/14/24 05:18
Rvr-C-Qnmfjqgfscw Pept 1650 pg/ml 02/06/24 09:04
Albumin 3.8 g/dl (3.5-5.0) 02/06/24 09:04
Physical Exam
-
Vital Signs:
Vital Signs
Temp Pulse Resp BP Pulse Ox
97.5 F 118 16 100/61 96
02/14/24 14:59 02/14/24 14:59 02/14/24 14:59 02/14/24 15:08 02/14/24 14:59
Cardiovascular:: Irregular rate and rhythm
Lung Excursion:: Normal (decreased)
Abdomen:: Nontender and Soft
Extremity Edema:: +1: Bilateral:
Llanes Catheter: No
[2024-02-14] MEDS: SAMSCA 15 MG PO (17:33)
[2024-02-14 19:43] VITALS: BP 119/54
[2024-02-14 23:39] VITALS: BP 118/81
[2024-02-15] VITALS (7 sets, daily range): BP systolic 110–153; BP diastolic 54–78; PULSE 90–128; O2SAT 99
[2024-02-15 06:49] LABS: Digoxin 1.2 ng/ml (0.8-2.0)
[2024-02-15] MEDS: CARDIZEM CD 120 MG PO ×2 (09:07→21:20)
[2024-02-15] MEDS: AZULFIDINE 1000 MG PO ×2 (09:07→21:21)
[2024-02-15] MEDS: DELTASONE 30 MG PO (09:08)
[2024-02-15] MEDS: PACERONE 200 MG PO ×2 (09:08→21:20)
[2024-02-15] MEDS: TOPROL XL 100 MG PO ×2 (09:08→21:20)
[2024-02-15] MEDS: CELLCEPT 1500 MG PO ×2 (09:09→21:21)
[2024-02-15] MEDS: PLAQUENIL 400 MG PO (09:09)
--- NOTE | 2024-02-15 10:03 | W.PN.CARDCBS ---
Addendum entered and electronically signed by Catrachito Gómez MD 02/15/24 14:14:
79-year-old woman with numerous comorbidities admitted with failure to thrive and found to have a sodium of 120 with atrial flutter and rapid ventricular response, with HFrEF with mildly reduced EF, proBNP 1650, moderate aortic stenosis and
pericardial effusion. currently she denies complaints receiving Samsca February 13. Rate controlled better with metoprolol, amiodarone, diltiazem and digoxin
Current medications: Furosemide 20 mg a day, hydroxychloroquine 400 mg daily, CellCept, Azulfidine, digoxin 125 mcg daily, metoprolol ER 100 mg twice daily, amiodarone 200 mg twice daily, diltiazem ER 120 mg twice daily, prednisone 30 mg a day
PMH: Pulmonary fibrosis, RA, hepatitis C with cirrhosis and cognitive impairment.
117/56, pulse 63, no weight today, neck veins are reasonable when upright, slightly distended when supine, somewhat diminished breath sounds in bases, now relatively bradycardic, systolic murmur, still with some edema
Sodium is 129, BUN and creatinine are 17 and 0.5 with a potassium of 4, EKG a flutter, rate approximately 60
Impression:
See below
Plan:
Repeat echo today shows that her effusion is stable. Her rate is now slow to the point that we should probably de-escalate her regimen.
She is anxious to go home.
We will arrange for a follow-up echo as outpatient and outpatient follow-up.
If patient is to be discharged, recommended cardiac medications:
Furosemide per renal
Metoprolol ER 100 mg twice daily
Amiodarone 200 mg daily for 3 weeks, then 200 mg daily
Stop diltiazem ER
Stop digoxin
BMP in 1 week
Follow-up echo and follow-up to our office to be arranged
We will check ECG next week
Original Note:
Today's Communication / Plan
-
repeat echo to reeval pericardial effusion
follow sodium
HRs improved
consider additional dose of lasix today
Impression / Plan
-
Impression:
Presentation with SOB
Acute hypoxic respiratory insufficiency
Atrial flutter with rapid ventricular response with some aberrancy
Failure to thrive
Hyponatremia
Moderate aortic stenosis
Moderate pericardial effusion
History Pulmonary fibrosis
History rheumatoid arthritis
History Hepatitis C/cirrhosis
Hypertension
Osteoporosis
Mild cognitive defects
Echocardiogram 02/08/2024: Ejection fraction 43%, moderate with mean gradient of 12 mmHg aortic valve area 1.1 cm, moderate pericardial effusion
Plan:
-Presented with FTT and SOB and found to be in aflutter with RVR.
-HR trends improved on review of tele overnight. continue lopressor, amiodarone, digoxin, and cardizem cd.
-she has stable mod pericardial effusion by echo 02/07 and 02/10. IV heparin was stopped on 02/07 with this finding. unclear if good candidate for pericardiocentesis. for repeat echo today to reassess. if stable, ok for DC from cardiac standpoint with
plan for repeat echo in 1-2 weeks for reassessment. if larger, will need to revisit pericardiocentesis.
-remains with some LE edema on exam. has been getting OP dose of po lasix 20mg daily. attempted to give dose of IV lasix 02/13 however cancelled due to hypotension, consider additional dose today
-hyponatremia mgmt per nephrology, received samsca yesterday
-pulm placed patient on steroids given history of pulm fibrosis. SOB felt to be multifactorial
-will arrange OP follow up once follow up echo resulted
-d/w nursing. d/w CM. d/w hospitalist via TT. d/w daughter via telephone.
Progress Note - National Sales Representative
Subjective
Date of Service: February 15, 2024
feeling well. no complaints
Objective
Labs:
02/14/24 05:18
Labs
Hgb 10.4 g/dL (12.0-16.0) L 02/14/24 05:18
Hct 31.1 % (37.0-47.0) L 02/14/24 05:18
Plt Count 164 10^3/uL (130-400) 02/14/24 05:18
APTT Cancelled 02/08/24 10:00
Sodium 127 mmol/L (135-145) L 02/14/24 05:18
Potassium 4.2 mmol/L (3.5-5.1) 02/14/24 05:18
BUN 19 mg/dl (7-17) H 02/14/24 05:18
Creatinine 0.5 mg/dL (0.6-1.0) L 02/14/24 05:18
Glucose 96 mg/dl (70-99) 02/14/24 05:18
Digoxin 1.2 ng/ml (0.8-2.0) 02/15/24 05:34
Vital Signs and I&O:
Vital Signs
Temp Pulse Resp BP Pulse Ox
98.0 F 84 16 130/69 96
02/15/24 07:20 02/15/24 07:20 02/15/24 07:20 02/15/24 07:20 02/15/24 07:20
Vital Signs
Temp Pulse Resp BP Pulse Ox
98.0 F 84 16 130/69 96
02/15/24 07:20 02/15/24 07:20 02/15/24 07:20 02/15/24 07:20 02/15/24 07:20
Intake & Output
02/13/24 02/14/24 02/15/24 02/16/24
07:59 07:59 07:59 07:59
Intake Total 1320 / 1320 300 / 300 570 / 570
Balance 1320 / 1320 300 / 300 570 / 570
Physical Exam
Physical Exam
GEN: No distress, awake, alert, oriented to self, place
HEENT: supple, anicteric, mmm, eomi
LUNGS: Few crackles at B/L bases, no wheezes
CV: Irreg, S1/S2, 2/6 syst LSB
ABD: soft, BS+, NT/ND
EXT: No cyanosis, clubbing. Trace-1+ edema of B/L LE
NEURO: Gross non-focal
SKIN: Warm, pink, dry. No rash
[2024-02-15 10:36] LABS: Blood Urea Nitrogen 17 mg/dl (7-17); Calcium 8.1 mg/dl (8.4-10.2); Carbon Dioxide 29 mmol/L (22-30); Chloride 95 mmol/L (98-107); Estimated Creatinine Clearance 74 ml/min; Glucose 91 mg/dl (70-99); Magnesium 1.9 mg/dl (1.6-2.3); Sodium 129 mmol/L (135-145); eGFR > 60.00
--- NOTE | 2024-02-15 11:23 | CM ---
Addendum entered by Rachel Fuentes 02/15/24 16:34:
Auth obtained from [facility]. Referrence number [id number], for 02/12-02/18 sub acute level I. Facility updated and aware of auth. Report number [phone] fax [phone].
Addendum entered by Rachel Fuentes 02/15/24 16:29:
Patient for discharge tomorrow to [facility]. Updated CLinical information sent via all [place]. IMM emailed to marie [email or web address] and transportation forms on chart. Physician to discharge in am. CM spoke with Gisela and update given
regarding plan. CM will continue to follow for discharge planning needs.
Plan; [facility] tomorrow.
Original Note:
Patient for further testing. CM spoke with [facility]/ liaison and she will continue to follow for patient but is not able to hold bed. Patient auth is in place until 02/18. IF patient not discharged back to the SNF will need to update auth. Please
call liaison to confirm bed availability if medically ready over the weekend. Liaison indicated that she would most likely have beds as of Sunday. CM will continue to follow for discharge planning needs.
Plan; SNF; [facility] pending auth and bed availability when medically appropriate.
--- NOTE | 2024-02-15 12:37 | W.PN.NEPH.PH ---
Today's Communication / Plan
-
Follow BMP
Maintain Lasix fluid restriction
Assessment/Plan
-
Assessment
hyponatremia.
Chronic pulmonary fibrosis.
Nausea vomiting.
Chronic pain status post left shoulder fracture previous two most recent fall with chronic NSAID use
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
Afib
Mod
mod pericardial effusion
Plan:
Hyponatremia- ADH mediated U osmo 482, U na low 15 suggest prerenal/cardiorenal with afib
sodium went from 127-1 29 status post Samsca administration
continue to maintain FR, encourage solute intake, lasix at 20mg daily
Afib per cards, on Amio and BB, dig added, hemodynamically labile as heart rate remains elevated
pericardial effusion noted on echo-repeat on 02/10-no change
follow bladder scan
steroids and abx per pulm
Hyponatremia is exceedingly difficult to control given her underlying comorbidities and not sure what else I can provide for outpatient management
-
-
Date of Service: February 15, 2024
CC / HPI / ROS
-
Chief Complaint:
hyponatremia
History of Present Illness:
Na sown to 129s/p Samsca on 02/13, on fluid restriction sodium tablets and Lasix
BP stable, soft
Remains in A-fib with rapid ventricular response
UOP not measured, cr 0.5, PVR was 75cc
wt stable
Review of Systems:
no active sob or cp
+tachycardia-improving
no dizziness
no CP
Labs
-
Labs:
WBC 10.0 10^3/uL (4.8-10.8) 02/14/24 05:18
RBC 3.55 10^6/uL (4.20-5.40) L 02/14/24 05:18
Hgb 10.4 g/dL (12.0-16.0) L 02/14/24 05:18
Hct 31.1 % (37.0-47.0) L 02/14/24 05:18
Plt Count 164 10^3/uL (130-400) 02/14/24 05:18
Sodium Cancelled 02/15/24 08:28
Potassium Cancelled 02/15/24 08:28
Chloride Cancelled 02/15/24 08:28
Carbon Dioxide Cancelled 02/15/24 08:28
BUN Cancelled 02/15/24 08:28
Creatinine Cancelled 02/15/24 08:28
eGFR Cancelled 02/15/24 08:28
Glucose Cancelled 02/15/24 08:28
Calcium Cancelled 02/15/24 08:28
Ebl-R-Hykrtrgkcak Pept 1650 pg/ml 02/06/24 09:04
Albumin 3.8 g/dl (3.5-5.0) 02/06/24 09:04
Physical Exam
-
Vital Signs:
Vital Signs
Temp Pulse Resp BP Pulse Ox
97.7 F 65 17 117/56 97
02/15/24 10:59 02/15/24 10:59 02/15/24 10:59 02/15/24 10:59 02/15/24 10:59
Cardiovascular:: Irregular rate and rhythm
Lung Excursion:: Normal (decreased)
Abdomen:: Nontender and Soft
Extremity Edema:: +1: Bilateral:
Llanes Catheter: No
[2024-02-15] MEDS: LANOXIN 125 MCG PO (12:52)
--- NOTE | 2024-02-15 13:31 | W.PN.HOSP.TC ---
Addendum entered and electronically signed by Eladio Card MD 02/16/24 08:01:
Transport arranged for tomorrow 1300
[facility] unable to accept patient in evening today
Original Note:
Today's Communication/Plan
-
repeat echo
snf placement if cleared by cards/nephro
Assessment / Plan
Assessment / Plan
1. Acute hypoxic respiratory insufficiency - resolved
-Suspected multifactorial from underlying pulmonary fibrosis/A-fib related pulmonary edema/pneumonia
-Being treated for underlying causes as below
-Currently off of oxygen, continue monitor
2. Atrial flutter with rapid ventricular rate
-Currently on regimen of amiodarone/digoxin/metoprolol/diltiazem
-Patient was on Cardizem drip now has been switched to amiodarone loading dose.
-Heart rate not controlled and patient was started on digoxin
-Heparin drip was contraindicated due to pericardial effusion on echocardiogram
-Repeat echocardiogram did not show any significant changes in pericardial effusion
3. Pulmonary fibrosis
Community-acquired pneumonia
-Chest x-ray reviewed and patient have changes of pulmonary fibrosis
-Pulmonology evaluated and CT chest deferred at this point as may not pipe changer
-Patient was on IV Decadron, has been switched to prednisone 40 mg daily
-Patient finished 5-day course of Rocephin/doxycycline
-Xopenex as needed ordered for shortness of breath
4. Pericardial effusion:
-Repeat echocardiogram did not show any significant increase in effusion size
-Cardiology to decide if requires pericardiocentesis.
-Cardiology planning to do a repeat echocardiogram x3 today.
5. Severe hyponatremia:
-on 40 oz FR already
-Nephrology consult appreciated
-Status post 3% saline by nephrology--> now fluid restriction and solute intake
-patient requiring PRN Samsca dosing
6. Essential Hypertension
Episode of hypotension
-Off of losartan/amlodipine. on rate control medication for A-fib before starting pure anti-HTN meds.
7. Nausea and vomiting -resolved
-Suspect viral gastroenteritis
-Monitor for recurrent symptoms
8. Chronic anemia
-Hemoglobin stable at 9.9 today
-Continue to monitor hemoglobin closely
9. Rheumatoid arthritis/pulmonary fibrosis/autoimmune hepatitis with liver cirrhosis:
Continue mycophenolate 1500 mg twice a day and hydroxychloroquine 400 mg p.o. daily and sulfasalazine 1000 mg twice a day
10. Chronic left shoulder fracture and falls:
Avoid NSAIDs due to hyponatremia
Tylenol prn
DVT prophylaxis: scd
CODE STATUS: Full code
Anticipated Discharge: Within 24 hours
Subjective/Interval History
-
Date of Service: February 15, 2024
Denies of having any chest discomfort/palpitation
No other reported problems
Objective Data
-
Labs:
Laboratory Results
02/15/24 02/15/24
05:34 08:28
Sodium 129 L Cancelled
Potassium 4.0 Cancelled
Chloride 95 L Cancelled
Carbon Dioxide 29 Cancelled
BUN 17 Cancelled
Creatinine 0.5 L Cancelled
Glucose 91 Cancelled
Calcium 8.1 L Cancelled
Vital Signs:
Vital Signs
Temp Pulse Resp BP Pulse Ox
97.7 F 63 17 117/56 97
02/15/24 10:59 02/15/24 12:52 02/15/24 10:59 02/15/24 10:59 02/15/24 10:59
I&O
02/14/24 02/15/24 02/16/24
06:59 06:59 06:59
Intake Total 300 / 300 570 / 570
Balance 300 / 300 570 / 570
Review of Systems
-
Respiratory: Reports No Symptoms
Cardiac: Reports No Symptoms
Abdomen/GI: Reports No Symptoms
Physical Exam
-
General: Comfortable and Cachectic
HEENT: Negative Oxygen
Respiratory: Clear to Auscultation
Cardiac: S1/S2, Irregular Rhythm and Tachycardic; Negative Murmur or Rub
GI: Soft and Nontender
Musculoskeletal: No Edema
Neuro: Awake, Alert, Oriented, No Motor Deficits and Nonfocal/Grossly Intact
Psych: Calm
--- NOTE | 2024-02-15 13:47 | PTCARENOTE ---
patient cooperative, denies complaints, tolerating diet, transfers with assist x1 with rolling walker, vss, will continue to monitor.
[2024-02-16 03:27] VITALS: BP 137/67
[2024-02-16 06:59] VITALS: BMI 23.8
[2024-02-16 07:29] VITALS: BP 128/68
[2024-02-16 07:31] LABS: Blood Urea Nitrogen 17 mg/dl (7-17); Calcium 7.9 mg/dl (8.4-10.2); Carbon Dioxide 30 mmol/L (22-30); Chloride 95 mmol/L (98-107); Estimated Creatinine Clearance 74 ml/min; Glucose 85 mg/dl (70-99); Potassium 4.1 mmol/L (3.5-5.1); Sodium 130 mmol/L (135-145); eGFR > 60.00
[2024-02-16] MEDS: CELLCEPT 1500 MG PO (08:26)
[2024-02-16] MEDS: AZULFIDINE 1000 MG PO (08:26)
[2024-02-16] MEDS: PLAQUENIL 400 MG PO (08:26)
[2024-02-16] MEDS: DELTASONE 30 MG PO (08:26)
[2024-02-16] MEDS: TOPROL XL 100 MG PO (08:27)
[2024-02-16] MEDS: PACERONE 200 MG PO (08:27)
[2024-02-16] MEDS: CARDIZEM CD 120 MG PO (08:27)
[2024-02-16 11:09] VITALS: BP 112/50
[2024-02-16] MEDS: LANOXIN 125 MCG PO (11:25)
--- NOTE | 2024-02-16 12:43 | W.PN.NEPH.PH ---
Today's Communication / Plan
-
For discharge on fluid restriction and Lasix
BMP to PCP next week
Assessment/Plan
-
Assessment
hyponatremia.
Chronic pulmonary fibrosis.
Nausea vomiting.
Chronic pain status post left shoulder fracture previous two most recent fall with chronic NSAID use
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
Afib
Mod
mod pericardial effusion
Plan:
Hyponatremia- ADH mediated U osmo 482, U na low 15 suggest prerenal/cardiorenal with afib
sodium went from 127-130 status post Samsca administration
continue to maintain FR, encourage solute intake, lasix at 20mg daily at discharge
Needs BMP to PCP later this week
Afib per cards, on Amio and BB, dig added, hemodynamically labile as heart rate remains elevated
pericardial effusion noted on echo-repeat on 02/10-no change
follow bladder scan
steroids and abx per pulm
Hyponatremia is exceedingly difficult to control given her underlying comorbidities and not sure what else I can provide for outpatient management
-
-
Date of Service: February 16, 2024
CC / HPI / ROS
-
Chief Complaint:
hyponatremia
History of Present Illness:
Na sown to 130 s/p Samsca on 02/13, on fluid restriction and Lasix
BP stable, soft
Remains in A-fib with rapid ventricular response
UOP not measured, cr 0.5, PVR was 75cc
wt stable
Review of Systems:
no active sob or cp
+tachycardia-improving
no dizziness
no CP
Labs
-
Labs:
WBC 10.0 10^3/uL (4.8-10.8) 02/14/24 05:18
RBC 3.55 10^6/uL (4.20-5.40) L 02/14/24 05:18
Hgb 10.4 g/dL (12.0-16.0) L 02/14/24 05:18
Hct 31.1 % (37.0-47.0) L 02/14/24 05:18
Plt Count 164 10^3/uL (130-400) 02/14/24 05:18
Sodium 130 mmol/L (135-145) L 02/16/24 06:14
Potassium 4.1 mmol/L (3.5-5.1) 02/16/24 06:14
Chloride 95 mmol/L (98-107) L 02/16/24 06:14
Carbon Dioxide 30 mmol/L (22-30) 02/16/24 06:14
BUN 17 mg/dl (7-17) 02/16/24 06:14
Creatinine 0.5 mg/dL (0.6-1.0) L 02/16/24 06:14
eGFR > 60.00 02/16/24 06:14
Glucose 85 mg/dl (70-99) 02/16/24 06:14
Calcium 7.9 mg/dl (8.4-10.2) L 02/16/24 06:14
Vbq-X-Fgdtgyzxges Pept 1650 pg/ml 02/06/24 09:04
Albumin 3.8 g/dl (3.5-5.0) 02/06/24 09:04
Physical Exam
-
Vital Signs:
Vital Signs
Temp Pulse Resp BP Pulse Ox
97.9 F 70 16 112/50 96
02/16/24 11:09 02/16/24 11:25 02/16/24 11:09 02/16/24 11:09 02/16/24 11:09
Cardiovascular:: Irregular rate and rhythm
Lung Excursion:: Normal (decreased)
Abdomen:: Nontender and Soft
Extremity Edema:: +1: Bilateral:
Llanes Catheter: No
--- NOTE | 2024-02-16 13:42 | W.PN.HOSP.TC ---
Today's Communication/Plan
-
d/c snf
Assessment / Plan
Assessment / Plan
1. Acute hypoxic respiratory insufficiency - resolved
-Suspected multifactorial from underlying pulmonary fibrosis/A-fib related pulmonary edema/pneumonia
-Being treated for underlying causes as below
-Currently off of oxygen, continue monitor
2. Atrial flutter with rapid ventricular rate
-Heparin drip was contraindicated due to pericardial effusion on echocardiogram
-Repeat echocardiogram did not show any significant changes in pericardial effusion
-Patient heart rate slower and cardiology recommended to discontinue digoxin/diltiazem at discharge. Patient being sent out on amiodarone/metoprolol
3. Pulmonary fibrosis
Community-acquired pneumonia
-Chest x-ray reviewed and patient have changes of pulmonary fibrosis
-Pulmonology evaluated and CT chest deferred at this point as may not pattern changer and repairer
-Patient was on IV Decadron, has been switched to prednisone 40 mg daily
-Patient finished 5-day course of Rocephin/doxycycline
-Xopenex as needed ordered for shortness of breath
4. Pericardial effusion:
-Repeat echocardiogram did not show any significant increase in effusion size
-Cardiology to decide if requires pericardiocentesis.
-repeat echo continues to show stable pericardial effusion
5. Severe hyponatremia:
-on 40 oz FR already
-Nephrology consult appreciated
-Status post 3% saline by nephrology--> now fluid restriction and solute intake
-patient requiring PRN Samsca dosing
6. Essential Hypertension
Episode of hypotension
-Off of losartan/amlodipine. on rate control medication for A-fib before starting pure anti-HTN meds.
7. Nausea and vomiting -resolved
-Suspect viral gastroenteritis
-Monitor for recurrent symptoms
8. Chronic anemia
-Hemoglobin stable at 9.9 today
-Continue to monitor hemoglobin closely
9. Rheumatoid arthritis/pulmonary fibrosis/autoimmune hepatitis with liver cirrhosis:
Continue mycophenolate 1500 mg twice a day and hydroxychloroquine 400 mg p.o. daily and sulfasalazine 1000 mg twice a day
10. Chronic left shoulder fracture and falls:
Avoid NSAIDs due to hyponatremia
Tylenol prn
DVT prophylaxis: scd
CODE STATUS: Full code
More than 30 minutes spent in discharge including
Final examination of the patient
Summarizing hospital stay
Instructions for continuing care to all relevant caregivers
Preparation of discharge records, prescriptions, and referral forms
Total time spent (in minutes): 38 misn
Anticipated Discharge: Today
Subjective/Interval History
-
Date of Service: February 16, 2024
no issues ovenright
Objective Data
-
Labs:
Laboratory Results
02/16/24
06:14
Sodium 130 L
Potassium 4.1
Chloride 95 L
Carbon Dioxide 30
BUN 17
Creatinine 0.5 L
Glucose 85
Calcium 7.9 L
Vital Signs:
Vital Signs
Temp Pulse Resp BP Pulse Ox
97.9 F 70 16 112/50 96
02/16/24 11:09 02/16/24 11:25 02/16/24 11:09 02/16/24 11:09 02/16/24 11:09
I&O
02/15/24 02/16/24 02/17/24
06:59 06:59 06:59
Intake Total 570 / 570 570 / 570
Balance 570 / 570 570 / 570
Review of Systems
-
Respiratory: Reports No Symptoms
Cardiac: Reports No Symptoms
Abdomen/GI: Reports No Symptoms
Physical Exam
-
General: Comfortable and Cachectic
HEENT: Negative Oxygen
Respiratory: Clear to Auscultation
Cardiac: S1/S2, Irregular Rhythm and Tachycardic; Negative Murmur or Rub
GI: Soft and Nontender
Musculoskeletal: No Edema
Neuro: Awake, Alert, Oriented, No Motor Deficits and Nonfocal/Grossly Intact
Psych: Calm
--- NOTE | 2024-02-16 15:15 | CM ---
Plan: Discharge to [facility] today; ambulance pick remover @ 0110
--- NOTE | 2024-02-16 15:48 | W.DCSUMMARY ---
Discharge Summary
Discharge Data
Date of Admission: 02/06/24
Date of Discharge: 02/16/24
-
Pending Results: No
Hospital Course
Discharging Physician : Dr Eladio Card
Disposition : SNF rehab
Primary care physician : Dr Jun Gabriel
Principal Discharge diagnosis :
Acute hypoxic respite insufficiency
Community-acquired pneumonia
Pulmonary fibrosis
Atrial flutter with rapid ventricular rate
Severe hyponatremia
Nausea and vomiting
Episode of hypotension
Chronic Discharge diagnosis :
Essential hypertension
Chronic anemia
Rheumatoid arthritis
History of autoimmune hepatitis and liver cirrhosis
History of left shoulder fracture
Hospital Course :
Patient is an 79-year-old female with no mentioned past medical history came to ER for having new onset of nausea vomiting and shortness of breath for few days. Patient also have noticed some worsening lower extremity swelling.
Patient was noted to be hypoxic in ER and was requiring oxygen support through nasal cannula. Chest x-ray suggestive of possible pneumonia with underlying pulmonary fibrosis. Patient was started on IV steroids and antibiotics. Pulmonology was
involved in care. Over the next few days patient symptoms improved with patient able to be weaned off of oxygen.
Patient also noted to be having atrial flutter with rapid ventricular rate for which patient required Cardizem drip. An echocardiogram was done which showed preserved ejection fraction with moderate pericardial effusion without any tamponade
physiology. Cardiology evaluated patient and recommended against anticoagulation therapy due to effusion. Patient was transition to oral amiodarone therapy although had suboptimal response. Over next few days patient was started on
digoxin/metoprolol and diltiazem and after which patient heart rate improved. Later during the hospital stay patient started having slower heart rate and at discharge cardiology recommended patient to be discharged on regimen of amiodarone and
metoprolol only. Patient also had rub of nonsustained V. tach and digoxin level were checked and were within normal limit. Repeat echocardiogram x 2 during the hospital stay showed stable pericardial effusion, pericardiocentesis was deferred at
this point. Patient is planned to follow-up with cardiology in office with periodic echocardiogram to monitor effusion.
Patient also noted to having significant hyponatremia from which patient was asymptomatic. Nephrology was involved in care and patient required 3% saline. Patient maintained on fluid restriction. Later during the hospital stay patient required
few doses of Sensipar as well.
Patient nausea and vomiting was felt to be related to possibly viral gastroenteritis versus hyponatremia related, this resolved without any further care.
Post medical stabilization patient was discharged to senior living facility for rehab.
Important imaging findings :
None
Procedure findings :
None
Discharge Plan
-
Patient Disposition: Half-Way/SNF
Discharge Diagnosis/Procedures: Afib/rvr, Hypoxia, community acquired pneumonia, pericardial effusion
Condition: Fair
Diet: Low Cholesterol and 2 Gram Sodium
Activity: As tolerated
Driving Restrictions: No driving
Bathing Restrictions: OK to Shower
Blood Work: BMP in 1 week
Activity Restrictions/Additional Instructions:
Sacral/coccyx-clean with saline or soap and water, silicone border foam, change q 3 days and prn loosened dressing. If foam ineffective, apply zinc barrier ointment TID instead.
Evaluate for air mattress.
Pressure redistributing chair cushion (i.e. Air chair cushion).
Elevate heels off bed with pillow/s.
Follow up with wound resident care manager or Wound care center if needed ( ).
Referrals:
Fam Vasquez MD [Active] - in two to four weeks (full PFTs on day of office visit)
Donald Garrett DO [Active] - in one week
Jun Gabriel MD [Family Provider] - in one week
Prescriptions:
New
amiodarone 200 mg Tablet
200 mg PO BID Qty: 30 0RF
Rx Instructions:
Take 1 tablet twice daily for 3 weeks THEN
Take 1 table once daily
metoprolol succinate 100 mg Tablet Extended Release 24 Hr
100 mg PO BID Qty: 60 0RF
prednisone 10 mg Tablet
See Rx Instructions .ROUTE .COMPLEX Qty: 30 0RF
Rx Instructions:
Take By Mouth:
30 mg daily x3 days, 20 mg daily x3 days,
10 mg daily x3 days
Continued
sulfasalazine 500 mg tablet
1,000 mg PO BID
mycophenolate mofetil 500 mg tablet
1,500 mg PO BID
hydroxychloroquine 200 mg tablet
400 mg PO DAILY
furosemide 20 mg Tablet
20 mg PO DAILY
Discontinued
amlodipine 5 mg tablet
5 mg PO DAILY
losartan 100 mg tablet
100 mg PO DAILY
Discharge Orders:
Discharge Patient (As Directed); Ordered 02/15/24
Ordered By: Eladio Card
Discharge Date and Time
Discharge Date/Time: 02/16/24 12:40
Print Language: CZECH
== END 2024-02-16 12:40 | DRG 640 ==
LOC: 3 WEST ACU 12:43
PROVIDERS: Internal Medicine; Physician Assistant; Specialist; ADMITTING PHYSICIAN Hospitalist; ATTENDING PHYSICIAN Hospitalist; CONSULT PHYSICIAN Internal Medicine Nephrology; CONSULT PHYSICIAN Nuclear Medicine Nuclear Cardiology; EMERGENCY PHYSICIAN Emergency Medicine; FAMILY PHYSICIAN Internal Medicine; OTHER PHYSICIAN Internal Medicine Critical Care Medicine
DX: E87.1 Hypo-osmolality and hyponatremia (principal); J18.9 Pneumonia, unspecified organism; I48.92 Unspecified atrial flutter; I31.39 Other pericardial effusion (noninflammatory); I50.20 Unspecified systolic (congestive) heart failure; I47.20 Ventricular tachycardia, unspecified; R09.02 Hypoxemia; R06.89 Other abnormalities of breathing; J84.10 Pulmonary fibrosis, unspecified; I95.9 Hypotension, unspecified; D64.9 Anemia, unspecified; M06.9 Rheumatoid arthritis, unspecified; K75.4 Autoimmune hepatitis; B19.20 Unspecified viral hepatitis C without hepatic coma; K74.60 Unspecified cirrhosis of liver; Z87.891 Personal history of nicotine dependence; I48.91 Unspecified atrial fibrillation; W19.XXXA Unspecified fall, initial encounter; Z79.899 Other long term (current) drug therapy; Z79.624 Long term (current) use of inhibitors of nucleotide synthesis; G89.29 Other chronic pain; Z79.1 Long term (current) use of non-steroidal anti-inflammatories (NSAID); I11.0 Hypertensive heart disease with heart failure; R62.7 Adult failure to thrive; M81.0 Age-related osteoporosis without current pathological fracture; Z11.52 Encounter for screening for COVID-19
CPT/HCPCS: 93308; 71045; 80048; 80053; 80162; 81003; 82533; 82607; 82746; 82962; 83540; 83550; 83735; 83880; 83930; 83935; 84300; 84443; 84484; 84550; 85025; 85027; 85730; 87040; 87502; 87811; 93005; 93306; 93321; 93325; 96365; 96375; 96376; 97116; 97163; 97167; 97530; 97535; 99285

== ENCOUNTER 2024-03-05 01:48 | Inpatient (IN) | payer OTHER, SELFPAY ==
--- NOTE | 2024-03-04 17:19 | ED.GENMED ---
ED Provider Triage
<Sejal Thurston LEADERSHIP COACH - Last Filed: 03/04/24 17:29>
-
Patient seen by provider in Triage?: Seen in Triage
Attestation: A medical screening examination has been initiated by a qualified medical provider. Based on the assessment performed at this time, it has been determined that an emergent medical condition may exist and the patient has been informed
that further medical evaluation and possible additional diagnostic testing may be needed.
HPI: 79-year-old female with history of acute systolic heart failure, bilateral lower extremity edema, hyponatremia, HTN, paroxysmal atrial flutter, was sent here from Dr. Gómez's office as a follow-up visit after being admitted for hyponatremia and
heart failure and discharged to home from [facility] rehab on 03/01. Daughter with her states patient has been complaining of being dizzy and lightheaded.
Daughter states she was sent here from the cardiology office for for high heart rate, low blood pressure, legs are weeping.
Fell earlier today at [facility] in [place]. Staff heard her calling for help and found her in the hallway outside of the bathroom. Pt unsure how she fell, she states she thinks she tripped and fell.
No thinners. No LOC.
GENERAL: Alert , in no apparent distress
EYE: No visual abnormalities. Ecchymosis, swelling left upper cheek.
NECK: Trachea midline
ENT: No visible abnormalities.
LUNGS: No acute respiratory distress
NEUROLOGICAL: Alert and oriented
SKIN: Skin intact. Lower legs weeping fluid.
MUSCULOSKELETAL: Moving extremities normally, bilateral lower extremity edema
PSYCH: Normal and appropriate interaction.
This is a medical evaluation conducted in person to initiate diagnostic evaluation and provide initial therapeutics. Please see further documentation by the treating clinician.
History of Present Illness
<Sejal Thurston, LEADERSHIP COACH - Last Filed: 03/04/24 17:29>
General
Chief Complaint: Swelling
Time Seen by Provider: 03/04/24 22:42
<LES Damon - Last Filed: 03/04/24 23:52>
General
Source: patient and family (Daughter)
Exam Limitations: none
History of Present Illness
History of Present Illness:
This is a 79 year old female that is brought over form the [facility] office. States that the patient had an unwitnessed fall today hitting her left face. States that her Heart rate was elevated and that she is up 9 pounds. States that she has
bilateral leg edema with weeping. Patient states that she has been SOB. States that she does get a little dizzy when getting up. Denies any fever, chills, chest pain, abd pain, nausea, vomiting, diarrhea, headache, urianry burning.
Past History
<Sejal Thurston LEADERSHIP COACH - Last Filed: 03/04/24 17:29>
Past History
ED Past Medical History: HTN and Other (OA)
<LES Damon - Last Filed: 03/04/24 23:52>
Past History
ED Past Medical History: Other (Guillian barre, Pulmonary fibrosis, Liver cirrhosis, Hep C, UTI, RA, )
ED Past Surgical History: Appendectomy and Other (Repair vanda retina, )
Social History
Tobacco: Non-smoker
Alcohol: None
Drug: None
Personal:
Living: with family
Review of Systems
<LES Damon - Last Filed: 03/04/24 23:52>
Review of Systems
All Other Systems: ROS reviewed and negative except as documented in HPI and ROS
Constitutional: Reports no symptoms; Denies fever or chills
EENT: Reports no symptoms
Respiratory: Reports trouble breathing; Denies cough
Cardiac: Reports no symptoms; Denies chest pain
ABD/GI: Reports no symptoms; Denies abdominal pain, nausea, vomiting or diarrhea
: Reports no symptoms; Denies dysuria, frequency or urgency
Musculoskeletal: Reports edema (Bilateral legs with weeping)
Skin: Reports other (Weeping legs)
Neurological: Reports dizzy (With getting up); Denies headache
Psychiatric: Reports no symptoms
Phy Exam
<LES Damon - Last Filed: 03/04/24 23:52>
General Physical Exam
General Presentation: no apparent distress
General age: appears stated age
General Skin: warm and dry
General Habitus: elderly
General Mental: alert
General Hydration: appears well hydrated
ENT Exam
ENT Exam: TM's normal, pharynx normal and neck supple
Eye Exam
Eye Exam: EOMI
Cardiovascular Exam
Cardiovascular Exam: normal peripheral pulses and irregularly irregular
Pulmonary Exam
Pulmonary Exam: no respiratory distress, chest non tender, no rhonchi, no wheezing, no cough and other (Rales with crackling also anteriorly)
Gastrointestinal Exam
Gastrointestinal Exam: normal bowel sounds, non tender, soft, no organomegaly, no pulsatile mass and non distended
Musculoskeletal Exam
Musculoskeletal Exam: full ROM and edema (+2 pitting edema of the feet and lower legs)
Skin Exam
Skin Exam: normal color, warm/dry, no petechia and other (Small red area noted on the medial aspect of the right lower leg. Bilateral legs weeping. Left upper cheek facial contusion)
Psychiatric Exam
Psychiatric Exam: normal mood/affect
Scores
<LES Damon - Last Filed: 03/04/24 23:52>
Heart Failure Risk
Heart Failure Risk Score: Yes
History of Stroke or TIA: No
History of intubation for respiratory distress: No
Heart rate on ED arrival >/= 110: Yes
SaO2 <90% on arrival on room air: No
HR >/=110 during 3min walk test (or too ill to perform test): Yes
ECG has acute ischemic changes: No
Urea >/=12mmol/L (BUN 33.6mg/dL): No
Serum CO2>/=35mmol/L: No
Troponin I or T elevated to CO Level (0.4mg/dL): No
NT-proBNP >/=5,000ng/L (5,000pg/ml): No
HF Risk Score: 2
Admission Status: MEDIUM RISK 9.2% Consider observation or discharge to home with homecare & f/u visit to PCP/[facility], or SNF for treatment
<Agustin Leahy DO - Last Filed: 03/05/24 00:11>
Heart Failure Risk
HF Risk Score: 2
Admission Status: MEDIUM RISK 9.2% Consider observation or discharge to home with homecare & f/u visit to PCP/[facility], or SNF for treatment
Course
<Sejal Thurston LEADERSHIP COACH - Last Filed: 03/04/24 17:29>
Orders/Labs/Results
Orders:
Orders
03/04/24 17:22
CT Facial Bones W/o Iv Contras Urgent
Comment:
Reason For Exam: Fall, swelling and bruising left cheek
03/04/24 17:24
Electrocardiogram (*1) Urgent
Reason for Study: Chest Pain
EKG- Treatment ONCE
03/04/24 17:42
BNP [NT-proBNP] Urgent
Complete Blood Count/With Diff Urgent
Comprehensive Metabolic Panel Urgent
Troponin I Urgent
03/04/24 22:59
CR Chest - 2 Views Urgent
Comment:
Reason For Exam: SOB, Leg edema
03/04/24 23:00
Furosemide [Lasix] 80 mg IV NOW STA
Abnormal Lab Results
03/04/24
17:42
RBC 3.39 L 10^6/uL
(4.20-5.40)
Hgb 10.1 L g/dL
(12.0-16.0)
Hct 31.2 L %
(37.0-47.0)
MCHC 32.4 L g/dL
(33.0-37.0)
RDW 16.7 H %
(11.5-14.5)
Absolute Lymphs (auto) 0.7 L 10^3/uL
(1.2-3.4)
Lymphocytes % 14.5 L %
(20.5-51.1)
Monocytes % 11.9 H %
(1.7-9.3)
Sodium 130 L mmol/L
(135-145)
Chloride 95 L mmol/L
(98-107)
Calcium 8.1 L mg/dl
(8.4-10.2)
Total Protein 5.9 L g/dl
(6.3-8.2)
Albumin 3.4 L g/dl
(3.5-5.0)
03/04/24 17:42
03/04/24 17:42
Vital Signs
Initial and Last Documented VS:
Initial Vital Signs
Temp Pulse Resp BP Pulse Ox
98.7 F 110 16 111/75 99
03/04/24 17:20 03/04/24 17:20 03/04/24 17:20 03/04/24 17:20 03/04/24 17:20
Last Documented Vital Signs
Temp Pulse Resp BP Pulse Ox
98.7 F 109 20 118/77 99
03/04/24 17:20 03/04/24 23:05 03/04/24 23:05 03/04/24 23:05 03/04/24 23:06
<LES Damon - Last Filed: 03/04/24 23:52>
Orders/Labs/Results
Orders:
Orders
03/04/24 17:22
CT Facial Bones W/o Iv Contras Urgent
Comment:
Reason For Exam: Fall, swelling and bruising left cheek
03/04/24 17:24
Electrocardiogram (*1) Urgent
Reason for Study: Chest Pain
EKG- Treatment ONCE
03/04/24 17:42
BNP [NT-proBNP] Urgent
Complete Blood Count/With Diff Urgent
Comprehensive Metabolic Panel Urgent
Troponin I Urgent
03/04/24 22:59
CR Chest - 2 Views Urgent
Comment:
Reason For Exam: SOB, Leg edema
03/04/24 23:00
Furosemide [Lasix] 80 mg IV NOW STA
Abnormal Lab Results
03/04/24
17:42
RBC 3.39 L 10^6/uL
(4.20-5.40)
Hgb 10.1 L g/dL
(12.0-16.0)
Hct 31.2 L %
(37.0-47.0)
MCHC 32.4 L g/dL
(33.0-37.0)
RDW 16.7 H %
(11.5-14.5)
Absolute Lymphs (auto) 0.7 L 10^3/uL
(1.2-3.4)
Lymphocytes % 14.5 L %
(20.5-51.1)
Monocytes % 11.9 H %
(1.7-9.3)
Sodium 130 L mmol/L
(135-145)
Chloride 95 L mmol/L
(98-107)
Calcium 8.1 L mg/dl
(8.4-10.2)
Total Protein 5.9 L g/dl
(6.3-8.2)
Albumin 3.4 L g/dl
(3.5-5.0)
03/04/24 17:42
03/04/24 17:42
H/H low but consistent with prior labs, hyponatremia, hypochloremia, Hypocalcemia, Total protein slightly low. Troponin <0.012, Pro-BNP 3450
Vital Signs
Initial and Last Documented VS:
Initial Vital Signs
Temp Pulse Resp BP Pulse Ox
98.7 F 110 16 111/75 99
03/04/24 17:20 03/04/24 17:20 03/04/24 17:20 03/04/24 17:20 03/04/24 17:20
Last Documented Vital Signs
Temp Pulse Resp BP Pulse Ox
98.7 F 109 20 118/77 99
03/04/24 17:20 03/04/24 23:05 03/04/24 23:05 03/04/24 23:05 03/04/24 23:06
<Agustin Leahy, DO - Last Filed: 03/05/24 00:11>
Orders/Labs/Results
Orders:
Orders
03/04/24 17:22
CT Facial Bones W/o Iv Contras Urgent
Comment:
Reason For Exam: Fall, swelling and bruising left cheek
03/04/24 17:24
Electrocardiogram (*1) Urgent
Reason for Study: Chest Pain
EKG- Treatment ONCE
03/04/24 17:42
BNP [NT-proBNP] Urgent
Complete Blood Count/With Diff Urgent
Comprehensive Metabolic Panel Urgent
Troponin I Urgent
03/04/24 22:59
CR Chest - 2 Views Urgent
Comment:
Reason For Exam: SOB, Leg edema
03/04/24 23:00
Furosemide [Lasix] 80 mg IV NOW STA
Abnormal Lab Results
03/04/24
17:42
RBC 3.39 L 10^6/uL
(4.20-5.40)
Hgb 10.1 L g/dL
(12.0-16.0)
Hct 31.2 L %
(37.0-47.0)
MCHC 32.4 L g/dL
(33.0-37.0)
RDW 16.7 H %
(11.5-14.5)
Absolute Lymphs (auto) 0.7 L 10^3/uL
(1.2-3.4)
Lymphocytes % 14.5 L %
(20.5-51.1)
Monocytes % 11.9 H %
(1.7-9.3)
Sodium 130 L mmol/L
(135-145)
Chloride 95 L mmol/L
(98-107)
Calcium 8.1 L mg/dl
(8.4-10.2)
Total Protein 5.9 L g/dl
(6.3-8.2)
Albumin 3.4 L g/dl
(3.5-5.0)
03/04/24 17:42
03/04/24 17:42
Vital Signs
Initial and Last Documented VS:
Initial Vital Signs
Temp Pulse Resp BP Pulse Ox
98.7 F 110 16 111/75 99
03/04/24 17:20 03/04/24 17:20 03/04/24 17:20 03/04/24 17:20 03/04/24 17:20
Last Documented Vital Signs
Temp Pulse Resp BP Pulse Ox
98.7 F 109 20 118/77 99
03/04/24 17:20 03/04/24 23:05 03/04/24 23:05 03/04/24 23:05 03/04/24 23:06
<LES Damon - Last Filed: 03/04/24 23:52>
MDM/Problems Addressed
Differential Diagnosis Includes:
CHF,
MDM/Problems Addressed:
This is a 79 year old female that is sent in from the [facility] office for admission. States that she had a fall today and this was unwitnessed. Patient's weight has increased 9 pounds and patient is SOB. Patient has bilateral leg swelling and
weeping.
Will check labs, chest x-ray and get patient admitted for IV Lasix.
Chronic conditions affecting care: Other (CHF, Pulmonary fibrosis)
Acute Exacerbation and/or Progression of Chronic Illness: Other (CHF)
<LES Damon - Last Filed: 03/04/24 23:52>
*Radiology
Radiology exam reviewed: preliminary read by ED provider (Chest-CHF mixed with pulmonary fibrosis) and radiology read reviewed (CT facial bones-NO evidence for facial bone fractures. Soft tissue density involving the soft tissues of the left cheek.
Compatible with contusion/hematoma)
*Pulse Oximetry
Patient hypoxic: no
*EKG
Interpreted by ED Provider?: Yes
Heart Rate: 110
Rate: tachycardiac
Rhythm: atrial flutter
[place]: left axis deviation
QRS Pattern: normal QRS
Ischemia: no ischemia
*Debeaker Interpretation
Rate: tachycardiac
Heart Rate: 110
Rhythm: sinus tachycardia
*Critical Care Note
Total Time (30-74mins, 75-104mins- exclusive of procedures): Not Applicable
ED Attending Note
<Sejal Thurston LEADERSHIP COACH - Last Filed: 03/04/24 17:29>
-
Portions of this chart may have been created with voice recognition software.� Occasional wrong word or��sound alike� substitutions may have occurred due to the inherent limitations of voice recognition software.
<Agustin Leahy DO - Last Filed: 03/05/24 00:11>
ED Attending Note
Patient seen and examined by attending physician: Yes
ED Attending Note:
Pleasant 79-year-old female sent in by cardiology for edema and bilateral lower extremity weeping. Patient has been tachycardic and had a fall this morning. Patient resides at [facility]. She is accompanied by her daughter.
Patient was seen in conjunction with the nurse practitioner and reviewed and agree with her history and treatment plan. My independent physical exam patient awake, alert, and oriented. She is in minimal acute distress. Lungs are congested. There
are rales in the bases. Bilateral lower extremity 2+ pitting edema with weeping and some excoriated skin. Plan is to admit patient with cardiology consult. Start Lasix.
Discharge Plan
Departure
Patient Disposition: Admit
Date of Disposition: 03/04/24
Time of Disposition: 23:51
Admit to: Telemetry
Presentation/result/management discussed w/ accepting MD/DO: Hospitalist
Patient with high blood pressure during this ER visit?: No
Condition: Good
Covid-19: Not Applicable
Discharge Problem:
CHF (congestive heart failure), Bilateral edema of lower extremity
Prescriptions:
No Action
sulfasalazine 500 mg tablet
1,000 mg PO BID
mycophenolate mofetil 500 mg tablet
1,500 mg PO BID
hydroxychloroquine 200 mg tablet
400 mg PO DAILY
furosemide 20 mg Tablet
20 mg PO DAILY
amiodarone 200 mg Tablet
200 mg PO BID Qty: 30 0RF
Rx Instructions:
Take 1 tablet twice daily for 3 weeks THEN
Take 1 table once daily
metoprolol succinate 100 mg Tablet Extended Release 24 Hr
100 mg PO BID Qty: 60 0RF
prednisone 10 mg Tablet
See Rx Instructions .ROUTE .COMPLEX Qty: 30 0RF
Rx Instructions:
Take By Mouth:
30 mg daily x3 days, 20 mg daily x3 days,
10 mg daily x3 days
Referrals:
Jun Gabriel MD [Family Provider] -
Interventions
Interventions:
*Risk Screen - Suicide Last Done: 03/04/24 17:20
*General Assessment Last Done: 03/04/24 17:20
*Neglect/Abuse Screening Last Done: 03/04/24 17:20
ED- Fall Risk Assessment Last Done: 03/04/24 23:06
*ED COVID-19 Vaccine History Last Done: 03/04/24 23:06
ED- Cardiac Assessment Last Done: 03/04/24 23:06
ED-Musculoskeletal Assessment Last Done: 03/04/24 23:06
ED- Neurological Assessment Last Done: 03/04/24 23:06
ED- Pulmonary Assessment Last Done: 03/04/24 23:06
ED-Skin Assessment Last Done: 03/04/24 23:06
Discharge Date and Time
Print Language: PORTUGUESE
[2024-03-04 17:20] VITALS: BP 111/75
[2024-03-04 17:52] LABS: % Basophils 1.2 % (0-2); % Eosinophils 5.3 % (0-6); % Immature Granulocytes 0.2 % (0-0.5); % Lymphocytes 14.5 % (20.5-51.1); % Monocytes 11.9 % (1.7-9.3); % Neutrophils 66.9 % (42.2-75.2); Absolute Basophils 0.1 10^3/uL (0-0.2); Absolute Eosinophils 0.3 10^3/uL (0-0.7); Absolute Lymphocytes 0.7 10^3/uL (1.2-3.4); Absolute Monocytes 0.6 10^3/uL (0.1-0.6); Absolute Neutrophils 3.3 10^3/uL (1.4-6.5); Hematocrit 31.2 % (37.0-47.0); Hemoglobin 10.1 g/dL (12.0-16.0); Mean Corp Hgb Conc. 32.4 g/dL (33.0-37.0); Mean Corpuscular Hgb 29.8 pg (27.0-31.0); Mean Platelet Volume 9.5 fL (7.4-10.4); Nucleated Red Blood Cells % 0 %; Platelet Count 244 10^3/uL (130-400); Red Blood Cell Count 3.39 10^6/uL (4.20-5.40); Red Cell Dist. Width 16.7 % (11.5-14.5); White Blood Cell Count 4.9 10^3/uL (4.8-10.8)
[2024-03-04 18:08] LABS: ALT (SGPT) 14 U/L (0-35); AST (SGOT) 27 U/L (14-36); Albumin 3.4 g/dl (3.5-5.0); Alkaline Phosphatase 86 U/L (38-126); Blood Urea Nitrogen 17 mg/dl (7-17); Calcium 8.1 mg/dl (8.4-10.2); Carbon Dioxide 30 mmol/L (22-30); Chloride 95 mmol/L (98-107); Glucose 94 mg/dl (70-99); Potassium 4.1 mmol/L (3.5-5.1); Sodium 130 mmol/L (135-145); Total Bilirubin 0.5 mg/dl (0.2-1.3); Total Protein 5.9 g/dl (6.3-8.2); eGFR > 60.00
[2024-03-04 18:14] LABS: NT-proBNP 3450 pg/ml; Troponin I < 0.012 ng/ml
[2024-03-04 21:03] VITALS: BP 124/68
[2024-03-04 23:04] VITALS: BMI 24.7
[2024-03-04 23:05] VITALS: BP 118/77
[2024-03-05] VITALS (20 sets, daily range): BP systolic 66–132; BP diastolic 45–96; PULSE 117; O2SAT 98; BMI 23.8
[2024-03-05] MEDS: LASIX 80 MG IV (00:37)
--- NOTE | 2024-03-05 01:31 | HPS.HSE ---
Family Physician
-
Family Physician: Jun Gabriel
Chief Complaint
-
Fall, Edema
History of Present Illness
Patient is an 79y F with PMH significant for pulmonary fibrosis, A-Flutter, RA and recent hospitalization for hypoxemia, IPF and pericardial effusion who presents to ED for evaluation of weakness / fall and edema. Patient was recently admitted
02/05 - 02/15 for hyponatremia, edema and dyspnea. She was treated during that stay for IPF flare with IV steroids. She received 3% saline and Samsca for hyponatremia. Echo done serially showed stable moderate sized pericardial effusion throughout
that stay. She was discharged on oral Lasix for hyponatremia.
Patient was discharged to a SNF where she had a brief stay. She is since back in her usual assisted living. Today she fell at the assisted living. Patient does not recall the event well but states that she 'must have' slipped.
She has a bruise on her L cheek from today's fall. She denies any pain or other significant injury.
Family notes that patient has been complaining of lightheadedness, dizziness, SOB and weakness with activity since her last hospital stay.
Patient was seen for a Cardiology visit later in the day and sent to the ED for evaluation of 'high heart rate, low blood pressure, legs are weeping'.
At the time of my examination patient is resting comfortably and has no complaints.
Medical History
Past Medical History
Past Medical History: Reports Other
Additional Past Medical History:
Pulmonary Fibrosis
Atrial Flutter
Pericardial Effusion
Hypertension
Chronic Hyponatremia
Anemia of Chronic Disease
Rheumatoid Arthritis
Autoimmune Hepatitis / Cirrhosis
Mild Cognitive Impairment
Past Surgical History: Reports Other
Additional Past Surgical History:
None known
Social History
Tobacco: Former Smoker
Alcohol: None
Drug: None
Living: Assisted Living
Family History
Family History: Not pertinent
Allergies / Home Medications
Allergies reflects when Allergies were last updated in [employer].
Home Medications with original date entered in [employer]
Allergy/Medication List:
Allergies
Allergy/AdvReac Type Severity Reaction Status Date / Time
No Known Allergies Allergy Verified 02/06/24 08:08
Home Medications
furosemide 20 mg tablet 20 mg PO DAILY Fluid Retention/Swelling 02/06/24
hydroxychloroquine 200 mg tablet 400 mg PO DAILY Autoimmune Disorder 02/06/24
mycophenolate mofetil 500 mg tablet 1,500 mg PO BID Autoimmune Disorder 02/06/24
sulfasalazine 500 mg tablet 1,000 mg PO BID Autoimmune Disorder 02/06/24
amiodarone 200 mg tablet 200 mg PO BID #30 tabs 02/15/24
metoprolol succinate 100 mg tablet,extended release 24 hr 100 mg PO BID #60 tabs 02/15/24
prednisone 10 mg tablet See Rx Instructions .Route .COMPLEX #30 tabs 02/15/24
Review of Systems
-
History Source: Patient
A 12 point ROS was completed and negative except as noted: Yes
Constitutional: Reports Fatigue; Denies Fever or Chills
EENT: Denies Sore Throat
Respiratory: Reports Trouble Breathing; Denies Cough
Cardiac: Denies Chest Pain or Palpitations
Abdomen/GI: Denies Abdominal Pain, Nausea, Vomiting or Diarrhea
: Denies Dysuria or Frequency
Musculoskeletal: Reports Edema; Denies Joint Pain
Neurological: Reports Dizzy; Denies Headache
Psych: Denies Depression or Anxiety
Physical Exam
Vital Signs
Vital Signs
Temp Pulse Resp BP Pulse Ox
98.7 F 112 20 116/82 99
03/04/24 17:20 03/05/24 00:37 03/04/24 23:05 03/05/24 00:37 03/04/24 23:06
Physical Exam
General: Other (79y F in no acute distress. Awake and alert. )
HEENT: Moist mucous membranes, PERRLA and Other (No JVD / HJR. Ecchymosis over L zygomatic arch. No other hematoma / injuries noted.)
Respiratory: Other (Diffuse rales throughout. No wheezing.)
Cardiac: S1/S2, Regular Rhythm and Murmur (II/ GAURAV)
GI: Soft, Non Tender, Non Distended and Normal Bowel Sounds
Musculoskeletal: No Clubbing, No Cyanosis and Other (3+ pitting edema b/l LEs to the knees. 'Glossy' edema with some areas of weeping clear fluid.)
Neuro: Awake, Alert, Oriented and Nonfocal/grossly intact
Laboratory Results
-
03/04/24 17:42
03/04/24 17:42
Laboratory Results
Total Bilirubin 0.5 mg/dl (0.2-1.3) 03/04/24 17:42
AST 27 U/L (14-36) 03/04/24 17:42
ALT 14 U/L (0-35) 03/04/24 17:42
Alkaline Phosphatase 86 U/L (38-126) 03/04/24 17:42
Troponin I < 0.012 ng/ml 03/04/24 17:42
Impression/Plan
-
A/P: Patient is an 79y F with PMH significant for IPF, HTN, RA and hyponatremia who presents to ED for evaluation of weakness, edema, dyspnea, etc.
LE Edema
Acute HFpEF
- Admit for further evaluation and treatment.
- Edema significantly increased from prior admission per notes.
- Weight gain of about 5 kg since that time (if scales accurate).
- BNP significantly increased from recent prior.
- Patient with borderline low BP and complains of lightheadedness with standing / activity.
- May require med adjustments / midodrine / etc to facilitate effective diuresis.
- Lasix 80mg x 1 given in the ED -- monitor for effect.
- Continue Lasix 20mg IV BID for now.
- Follow I/Os, daily weights, etc.
- Monitor for improvement in symptoms.
- Repeat Echo given recent pericardial effusion to rule out increase / tamponade / etc.
- Cardiology evaluation for additional recommendations.
Fall at Home
- Bruising of the L face noted following fall.
- Details of fall are unclear - monitor on tele overnight for rule out arrhythmia.
- PT / OT evals in the AM.
- CT scan done in the ED (of the face) shows no fracture.
Chronic Hyponatremia
- Stable. Na levels are consistent with recent baseline at 130.
- Follow for changes with IV diuresis.
- Received 3% saline and Samsca during recent admission.
Atrial Flutter
- Stable. Continue current med regimen including amiodarone, metoprolol, etc.
- Poor candidate for OAC given pericardial effusion, fall risk, etc.
IPF
- Stable. Chronic changes on CXR / exam.
- s/p recent steroid course for treatment of suspect flare.
- Observe off of additional steroids for now.
- Follow for improvement in dyspnea / symptoms with fluid management as noted above.
Benign Hypertension
- BP very well controlled / borderline low at present.
- Continue current medications with holding parameters.
- Adjust as needed to avoid hypotension.
Rheumatoid Arthritis
AIH / Cirrhosis
- No new complaints / joint pains / etc.
- Continue current med regimen without changes.
Anemia of Chronic Disease
- Stable. Hgb at / near known baseline.
- Follow for any changes.
DVT Prophylaxis: Subcut Heparin
Code Status: Full
[2024-03-05 03:19] LABS: Hemoglobin 11.1 g/dL (12.0-16.0); Mean Corp Hgb Conc. 33.6 g/dL (33.0-37.0); Mean Corpuscular Volume 89.2 fL (81.0-99.0); Mean Platelet Volume 9.3 fL (7.4-10.4); Platelet Count 251 10^3/uL (130-400); Red Cell Dist. Width 16.6 % (11.5-14.5); White Blood Cell Count 5.4 10^3/uL (4.8-10.8)
[2024-03-05 03:49] LABS: Blood Urea Nitrogen 16 mg/dl (7-17); Calcium 8.5 mg/dl (8.4-10.2); Carbon Dioxide 28 mmol/L (22-30); Chloride 95 mmol/L (98-107); Estimated Creatinine Clearance 74 ml/min; Glucose 85 mg/dl (70-99); Potassium 3.8 mmol/L (3.5-5.1); Sodium 132 mmol/L (135-145); eGFR > 60.00
--- NOTE | 2024-03-05 07:50 | PTCARENOTE ---
Assumed care of pt from prev nsg shift; Pt AAOx2-3, pt mildly confused to date, but easily reoriented. Pt w/no c/o Cp or SOB. Pt w/BP stable at 108/82 this AM; Pt's HR elevated in the 110's-MD aware. Pt is ST on telemetry monitoring. Plan for the
day discussed w/pt. Pt w/call banda within rech & plan of care ongoing.
--- NOTE | 2024-03-05 09:15 | CON.CAR ---
Addendum entered and electronically signed by Kendall Mathews MD 03/05/24 11:39:
I saw and examined the patient.
The Data Collection Specialist's note was reviewed and I agree with the note.
Comment: Briefly, 79 yo woman PMHx HFrEF (EF 45%), atrial flutter, pericardial effusion, IPF who presents with decompensated HF
Appears mildly volume overloaded on exam
Agree with IV lasix twice daily
Follow daily weight and electrolytes
Heart rates remain rapid in atrial flutter despite metoprolol and amiodarone
We will add low-dose Cardizem for additional rate control
Start Eliquis for cardioembolic prophylaxis
If we are unable to control her heart rates would consider GERARD/direct-current cardioversion to restore sinus rhythm
Repeat TTE today shows resolution of pericardial effusion
Consider repeat echo as an outpatient to reassess
Original Note:
Consultation
Consultation Request
Date/Time Consultation Requested: 03/05/24 at 0240
Date/Time Consultation Performed: 03/05/24 at 0915
Requesting Provider: Dr. Sanchez
Performing Provider: Dr. Mathews
Reason for Consultation: CHF
Medical History
-
History of Present Illness:
Patient came to ER yesterday from the cardiology office after hospital follow-up office visit for CHF and is now being admitted with recurrent CHF and fall and cardiology has been consulted. Patient was just admitted from 02/06/2024 until
02/16/2024 with acute hypoxic respiratory insufficiency in the setting of PNA, known IPF and also new acute HF. During that admission patient was diuresed with Lasix and was also seen in consultation by nephrology and given doses of Samsca and
hypertonic saline. Patient was noted to be in newly diagnosed typical atrial flutter and there was consideration for rhythm control strategy, but on TTE she was found to have a moderate-sized pericardial effusion. Pericardial effusion was stable
on serial echoes that admission and decision was made not to proceed with pericardiocentesis due to stable effusion. Patient was ultimately discharged to home on Lasix 20 mg daily and was seen in the office yesterday for hospital follow-up. When
patient presented to the office she had obvious swelling and ecchymosis of her left cheek and admitted that she had fallen in her apartment prior to coming to the office, but denied any prodrome and says that she had no idea she was going to fall
and woke up on the floor. Of additional concern was patient's increased LE edema and SOB. Patient was taken to ER after her OV and is now admitted with acute HF. Patient reports minimal symptomatic improvement overnight and has ongoing LE
edema.
PMH:
Moderate pericardial effusion
Persistent typical atrial flutter
Not chronically anticoagulated due to pericardial effusion and h/o falls
Hyponatremia
Recent admission for PNA, new a flutter and acute HF 02/06/2024 until 02/16/2024
Moderate aortic stenosis
h/o Pulmonary fibrosis
h/o rheumatoid arthritis
h/o Hepatitis C/cirrhosis
h/o HTN
Osteoporosis
Mild cognitive defects
Past Medical History
Past Medical History: Other (in HPI)
Past Surgical History: None
Social History
Tobacco: Former Smoker (She quit 50 years ago)
Alcohol: None
Drug: None
Living: Assisted Living ([facility] living in [place])
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
Family History
Family History: Reviewed & Not Pertinent (Sister had an aortic valve issue and age 83)
Allergies / Home Medications
Allergy/AdvReac Type Severity Reaction Status Date / Time
No Known Allergies Allergy Verified 02/06/24 08:08
�Medication �Instructions �Recorded �Confirmed �Type
furosemide 20 mg tablet 20 mg PO DAILY Fluid 02/06/24 02/06/24 History
Retention/Swelling
hydroxychloroquine 200 mg tablet 400 mg PO DAILY Autoimmune Disorder 02/06/24 02/06/24 History
mycophenolate mofetil 500 mg tablet 1,500 mg PO BID Autoimmune Disorder 02/06/24 02/06/24 History
sulfasalazine 500 mg tablet 1,000 mg PO BID Autoimmune Disorder 02/06/24 02/06/24 History
amiodarone 200 mg tablet 200 mg PO BID #30 tabs 02/15/24 Rx
metoprolol succinate 100 mg 100 mg PO BID #60 tabs 02/15/24 Rx
tablet,extended release 24 hr
prednisone 10 mg tablet See Rx Instructions .Route 02/15/24 Rx
.COMPLEX #30 tabs
Review of Systems
-
History Source: Patient
All other systems: Negative unless noted
Physical Exam
Vital Signs
Temp Pulse Resp BP Pulse Ox
97.6 F 115 16 108/82 99
03/05/24 06:51 03/05/24 08:15 03/05/24 06:51 03/05/24 06:49 03/05/24 06:51
GEN: No distress, awake, alert, oriented to self, place
HEENT: supple, anicteric, mmm, eomi
LUNGS: Few crackles at B/L bases, no wheezes
CV: Irreg, S1/S2, 2/6 syst LSB
ABD: soft, BS+, NT/ND
EXT: No cyanosis, clubbing. Trace-1+ edema of B/L LE
NEURO: Gross non-focal
SKIN: Warm, pink, dry. No rash
Lab Results
03/05/24 03:06
03/05/24 03:06
Troponin I < 0.012 ng/ml 03/04/24 17:42
Zea-G-Ghuwcyzyzvc Pept 3450 pg/ml 03/04/24 17:42
Impression / Plan
-
PCP Dr. Jun Gabriel
Card: Dr. HERMES Gómez
Impression:
Admitted with unwitnessed fall with facial injury and acute HF 03/04/24
Unwitnessed fall with left cheek ecchymosis 03/04/24 AM
Acute HFmrEF, EF 43% by echo 02/08/24
Moderate pericardial effusion
Persistent typical atrial flutter
Not chronically anticoagulated due to pericardial effusion and h/o falls
Hyponatremia
Recent admission for PNA, new a flutter and acute HF 02/06/2024 until 02/16/2024
Moderate aortic stenosis
h/o Pulmonary fibrosis
h/o rheumatoid arthritis
h/o Hepatitis C/cirrhosis
h/o HTN
Osteoporosis
Mild cognitive defects
Echo 02/08/2024: Ejection fraction 43%, moderate with mean gradient of 12 mmHg aortic valve area 1.1 cm, moderate pericardial effusion
Echo 02/11/2024: EF 40 to 45%, moderate pericardial effusion without evidence of hemodynamic compromise, compared to echo 02/08/2024 there are no significant changes
Plan:
-Patient came to ER yesterday from the cardiology office after hospital follow-up office visit for CHF and is now being admitted with recurrent CHF and fall and cardiology has been consulted. Patient was just admitted from 02/06/2024 until
02/16/2024 with acute hypoxic respiratory insufficiency in the setting of PNA, known IPF and also new acute HF. During that admission patient was diuresed with Lasix and was also seen in consultation by nephrology and given doses of Samsca and
hypertonic saline. Patient was noted to be in newly diagnosed typical atrial flutter and there was consideration for rhythm control strategy, but on TTE she was found to have a moderate-sized pericardial effusion. Pericardial effusion was stable
on serial echoes that admission and decision was made not to proceed with pericardiocentesis due to stable effusion. Patient was ultimately discharged to home on Lasix 20 mg daily and was seen in the office yesterday for hospital follow-up. When
patient presented to the office she had obvious swelling and ecchymosis of her left cheek and admitted that she had fallen in her apartment prior to coming to the office, but denied any prodrome and says that she had no idea she was going to fall
and woke up on the floor. Of additional concern was patient's increased LE edema and SOB. Patient was taken to ER after her OV and is now admitted with acute HF. Patient reports minimal symptomatic improvement overnight and has ongoing LE
edema.
-ECG reviewed by me shows typical atrial flutter with heart rate 113. Telemetry reviewed by me also appears to be atrial flutter with heart rate closer to 100.
-Atrial flutter was a new diagnosis last admission. Rate control efforts included the addition of Toprol-XL 100 mg twice daily and amiodarone 200 mg twice daily for 3 weeks and then 200 mg daily thereafter. Patient was also briefly on Cardizem CD
and digoxin, but both were stopped prior to discharge.
-Recheck echo. Patient had moderate pericardial effusion that was stable by echo 02/08/2024 and 02/11/2024
-Agree with Lasix 20 mg IV twice daily. Patient was taking Lasix 20 mg p.o. daily prior to admission.
-Pending results of echo and response to diuresis we will have to give increased consideration to intervention on the moderate size pericardial effusion. An additional complicating factor is ongoing atrial flutter with overall poor HR control. We
previously deferred rhythm control due to concern for starting patient on OAC. One possible intervention would be pericardiocentesis and if stable then proceed with GERARD/CV.
-EF was 40 to 45% by echo his last admission.
-Outpatient dose of Toprol XL 100 mg twice daily has been continued
-Patient is not chronically on MONIKA/ARB/ARNI due to hypotension
-Patient is not chronically on an aldosterone antagonist due to hypotension
-Patient is not chronically on an SGLT2 for unclear reasons. Will ask CM to check on cost and if reasonable we will plan on starting Farxiga 10 mg daily
-Nephrology followed patient during last admission for hyponatremia and patient received hypertonic fluids and Samsca. Nephrology is not consulted this admission sodium level as low as 128 last admission, but this time 130 on 02/25/2024 and improved
to 132 on 03/05/2024. Will continue attempts at diuresis.
-Also during last admission patient was seen by pulmonology and was started on steroids for pulmonary fibrosis.
-Patient also noted to have history of rheumatoid arthritis and is chronically on sulfasalazine, CellCept and hydroxychloroquine
[2024-03-05] MEDS: TOPROL XL 100 MG PO ×2 (10:39→19:47)
[2024-03-05] MEDS: PACERONE 200 MG PO ×2 (10:39→19:47)
[2024-03-05] MEDS: PLAQUENIL 400 MG PO (10:39)
[2024-03-05] MEDS: LASIX 20 MG IV ×2 (10:39→17:00)
[2024-03-05] MEDS: HEPARIN 5000 UNITS SC (10:40)
[2024-03-05] MEDS: AZULFIDINE 1000 MG PO ×2 (10:41→19:46)
[2024-03-05] MEDS: CELLCEPT 1500 MG PO ×2 (10:41→19:46)
--- NOTE | 2024-03-05 13:25 | W.PN.HOSP.TC ---
Today's Communication/Plan
-
IV diuresis
Initiated on anticoagulation.
PT assessment
Assessment / Plan
Assessment / Plan
Impression:
Patient is an 79y F with PMH significant for IPF, HTN, RA and hyponatremia who presents to ED for evaluation of weakness, edema, dyspnea, etc.
Acute CHF preserved EF.
Atrial flutter with rapid ventricular response.
Fall at home
Other conditions:
Chronic hyponatremia
IPF
Benign hypertension
Rheumatoid arthritis
Autoimmune hepatitis with cirrhosis
Anemia of chronic disease.
Plan:
Acute CHF preserved EF
Repeated echocardiogram on 03/05: LVEF improved at 50-55%. Moderate MR. Moderate TR. Improved and now trivial pericardial effusion.
- Edema significantly increased from prior admission per notes.
- Weight gain of about 5 kg since that time (if scales accurate).
- BNP significantly increased from recent prior.
- Patient with borderline low BP and complains of lightheadedness with standing / activity.
- May require med adjustments / midodrine / etc to facilitate effective diuresis.
- Lasix 80mg x 1 given in the ED -- monitor for effect.
- Continue Lasix 20mg IV BID for now.
- Follow I/Os, daily weights, etc.
- Monitor for improvement in symptoms.
- Repeat Echo given recent pericardial effusion to rule out increase / tamponade / etc.
- Cardiology evaluation for additional recommendations.
Atrial flutter.
Rate control suboptimal.
Continue metoprolol and amiodarone. Added diltiazem 120 mg p.o. twice daily. Monitor blood pressure.
Not on anticoagulation prior to admission
Eliquis initiation by cardiology on 03/05
Fall at Home
- Bruising of the L face noted following fall.
- Details of fall are unclear - monitor on tele overnight for rule out arrhythmia.
- PT / OT evals in the AM.
- CT scan done in the ED (of the face) shows no fracture
Chronic Hyponatremia
- Stable. Na levels are consistent with recent baseline at 130.
- Follow for changes with IV diuresis.
- Received 3% saline and Samsca during recent admission.
IPF
- Stable. Chronic changes on CXR / exam.
- s/p recent steroid course for treatment of suspect flare.
- Observe off of additional steroids for now.
- Follow for improvement in dyspnea / symptoms with fluid management as noted above.
Benign Hypertension
- BP very well controlled / borderline low at present.
- Continue current medications with holding parameters.
- Adjust as needed to avoid hypotension.
Rheumatoid Arthritis
AIH / Cirrhosis
- No new complaints / joint pains / etc.
- Continue current med regimen without changes.
Anemia of Chronic Disease
- Stable. Hgb at / near known baseline.
- Follow for any changes.
DVT Prophylaxis: Subcut Heparin
Code Status: Full
Anticipated Discharge: 24 - 48 hours
Subjective/Interval History
-
Date of Service: March 05, 2024
Objective Data
-
Labs:
Laboratory Results
03/05/24
03:06
WBC 5.4
Hgb 11.1 L
Hct 33.0 L
Plt Count 251
Sodium 132 L
Potassium 3.8
Chloride 95 L
Carbon Dioxide 28
BUN 16
Creatinine 0.5 L
Glucose 85
Calcium 8.5
Vital Signs:
Vital Signs
Temp Pulse Resp BP Pulse Ox
97.6 F 118 16 95/67 99
03/05/24 13:16 03/05/24 12:45 03/05/24 13:16 03/05/24 11:42 03/05/24 13:16
I&O
03/04/24 03/05/24 03/06/24
06:59 06:59 06:59
Output Total 3400 / 3400
Balance -3400 / -3400
Physical Exam
-
General: Well Developed and No Apparent Distress
HEENT: Normocephalic, Atraumatic and Moist Mucous Membranes
Respiratory: Clear to Auscultation
Cardiac: Regular Rhythm and S1/S2; Negative Murmur, Rub or Gallop
GI: Soft, Nontender, Nondistended and Normal Bowel Sounds; Negative Organomegaly
Rectal: Deferred by Provider
Musculoskeletal: No Clubbing, No Cyanosis and No Edema
Skin: Negative Rash
Neuro: Nonfocal/Grossly Intact
--- NOTE | 2024-03-05 14:18 | WOUNDNOTE ---
RIGHT LOWER MEDIAL LEG
--- NOTE | 2024-03-05 14:20 | WOUNDNOTE ---
COCCYX/BUTTOCKS( 1945, [facility]#:[id number])
[2024-03-05] MEDS: CARDIZEM CD 120 MG PO (14:22)
--- NOTE | 2024-03-05 14:24 | CM ---
Reviewed chart. Met with Mrs. Hanks and her family to review discharge plans. Prior to admission Mrs. Hanks resides at [facility]. She has been there for fifteen months. She was just discharged from [facility] on Sunday.
Family states she has been using the wheelchair at the [facility]. She can self propel. She was ambulating with a rollator at the SNF. She has a wheelchair and rollator at home. She is agreeable to exploring SNF/Rehab. at [facility].
He spouse resides at [facility]. She will need a pre-cert for SNF/Rehab. Telephone call to [facility] to make the referral. Sent the referral. Medical work-up in progress. The discharge plan is to go to SNF/Rehab. if bed available
and approved by insurance when medically stable.
--- NOTE | 2024-03-05 14:55 | WOUNDNOTE ---
[facility] RN note: Patient admitted with fall/edema
See H&P for complete history.
PMH: CHF, pulmonary fibrosis, Aflutter
Wound Location and type/assessment: Patient admitted with MASD vs stage 2 PI of coccyx and newly healed area of sacral area. Patient known from prior recent admission. The scattered open areas appear macerated. Patient also has +1 pedal bilateral
edema, + pedal pulses with venous stasis skin changes and dry skin. Right LE with shallow, draining area that appears to an open blister. Heels blanchable and intact. Patient demonstrated ability to stand with assistance and walker. Daughters at
bedside and state fair to good appetite. Daughters given update regarding findings of skin assessment and plan.
Pressure redistribution devices in place: Air cushion to chair, Versa Care Air.
Plan: Mineral oil and MONIKA compression to LE. Calazime PRN with incontinence care to open areas of sacral coccyx. Avoid diapers. Local wound care provided as ordered to right LE. Orders confirmed with hospitalist. NATALIYA Dickinson updated via TT. Updated
care plan and will follow as needed.
Note to case management of equipment requested for discharge:
Recommend follow up at wound care center upon discharge.
[2024-03-05] MEDS: HYDROPHOR 1 APPLIC TOPICAL (17:00)
[2024-03-05] MEDS: FLUSH (NSS) 2 FLUSH IV (17:29)
[2024-03-05] MEDS: ELIQUIS 5 MG PO (19:46)
--- NOTE | 2024-03-05 20:30 | PTCARENOTE ---
Rec'd at change of shift. Pt AAO*3, VSS, and in SR with tachycardia. Pt forgetful of verbal instructions and high fall risk, bed/chair alarm active. Pt denies any pain or discomfort and verbalizes safety. Pt resting with call banda in reach, plan
of care ongoing.
[2024-03-05] MEDS: CARDIZEM CD PO (21:16)
[2024-03-06] VITALS (14 sets, daily range): BP systolic 79–110; BP diastolic 54–86; PULSE 110–114; BMI 23.0
--- NOTE | 2024-03-06 07:21 | W.PN.CARDCBS ---
Addendum entered and electronically signed by Keturah Garcia MD 03/06/24 10:19:
I saw and examined the patient.
The Management Coordinator's note was reviewed and I agree with the note.
Comment: She still feels short of breath. She has underlying pulmonary fibrosis, uncontrolled heart rates with atrial tachycardia/atrial flutter. She has heart failure with preserved ejection fraction and continued volume overload.
Exam with bilateral crackles worse at the bases
Lower extremity edema at least +1 bilateral
Heart tachycardic but regular
Plan at this time:
-Continue IV Lasix but will give an extra 40 mg of IV Lasix now
- reassess labs in the morning
-N.p.o. for GERARD cardioversion tomorrow
-Assess mitral valve during GERARD
-Continue oral anticoagulation
-Continue oral amiodarone and will de-escalate to 200 mg daily on discharge to rehab
-Follow input/output and daily weights
Discussed with patient and discussed with nursing.
Original Note:
Today's Communication / Plan
-
GERARD/CV in AM, tolerating addition of Eliquis
Cont amiodarone 200 mg BID for now
Cont Lasix 20 mg IV BID, but will need Lasix 40 mg PO daily upon d/c
51 min in face to face and coordination of care
Impression / Plan
-
PCP Dr. Jun Gabriel
Card: Dr. HERMES Gómez
Impression:
Admitted with unwitnessed fall with facial injury and acute HF 03/04/24
Unwitnessed fall with left cheek ecchymosis 03/04/24 AM
Acute HFmrEF, EF 43% by echo 02/08/24
Moderate pericardial effusion
Persistent typical atrial flutter
Not chronically anticoagulated due to pericardial effusion and h/o falls
Hyponatremia
Recent admission for PNA, new a flutter and acute HF 02/06/2024 until 02/16/2024
Moderate aortic stenosis
h/o Pulmonary fibrosis
h/o rheumatoid arthritis
h/o Hepatitis C/cirrhosis
h/o HTN
Osteoporosis
Mild cognitive defects
Echo 02/08/2024: Ejection fraction 43%, moderate with mean gradient of 12 mmHg aortic valve area 1.1 cm, moderate pericardial effusion
Echo 02/11/2024: EF 40 to 45%, moderate pericardial effusion without evidence of hemodynamic compromise, compared to echo 02/08/2024 there are no significant changes
Plan:
-Weight is down 5 lbs overnight with Lasix 20 mg IV BID. Patient was taking Lasix 20 mg daily prior to admission. Will likely increase to Lasix 40 mg PO daily at time of d/c.
-Cre stable at 0.5. Potassium stable at 3.8.
-EF 40-45% by echo 02/11/24.
-Outpatient dose of Toprol XL 100 mg BID has been continued.
-Patient is not chronically on MONIKA/ARB/ARNI due to hypotension
-Patient is not chronically on an aldosterone antagonist due to hypotension
-Patient is not chronically on an SGLT2 for unclear reasons. Will ask CM to check on cost and if reasonable we will plan on starting Farxiga 10 mg daily
-Nephrology followed patient during last admission for hyponatremia and patient received hypertonic fluids and Samsca. Nephrology is not consulted this admission. Sodium level improved with diuresis.
-Tele reviewed by me shows atrial flutter rapid rates.
-Atrial flutter was a new diagnosis last admission. Last admission GERARD/CV was deferred due to pericardial effusion, but pericardial effusion is now trivial and Eliquis 5 mg BID (age 79, Cre 0.5, wt 68.5 kg) was started 03/05/24 PM. Plan is for GERARD/CV
03/07/24.
-Toprol XL as above.
-Outpatient dose of amiodarone continued. [facility] admission and plan was amiodarone 200 mg BID for 3 weeks (stopping 03/07/24) and then 200 mg daily thereafter. Will continue amiodarone at 200 mg BID
throughout admission with planned GERARD/CV.
-Patient also noted to have history of rheumatoid arthritis and is chronically on sulfasalazine, CellCept and hydroxychloroquine
HPI: Patient came to ER yesterday from the cardiology office after hospital follow-up office visit for CHF and is now being admitted with recurrent CHF and fall and cardiology has been consulted. Patient was just admitted from 02/06/2024 until
02/16/2024 with acute hypoxic respiratory insufficiency in the setting of PNA, known IPF and also new acute HF. During that admission patient was diuresed with Lasix and was also seen in consultation by nephrology and given doses of Samsca and
hypertonic saline. Patient was noted to be in newly diagnosed typical atrial flutter and there was consideration for rhythm control strategy, but on TTE she was found to have a moderate-sized pericardial effusion. Pericardial effusion was stable
on serial echoes that admission and decision was made not to proceed with pericardiocentesis due to stable effusion. Patient was ultimately discharged to home on Lasix 20 mg daily and was seen in the office yesterday for hospital follow-up. When
patient presented to the office she had obvious swelling and ecchymosis of her left cheek and admitted that she had fallen in her apartment prior to coming to the office, but denied any prodrome and says that she had no idea she was going to fall
and woke up on the floor. Of additional concern was patient's increased LE edema and SOB. Patient was taken to ER after her OV and is now admitted with acute HF. Patient reports minimal symptomatic improvement overnight and has ongoing LE
edema.
Progress Note - [employer]
Subjective
Date of Service: March 06, 2024
Less SOB
Objective
Labs:
03/05/24 03:06
03/05/24 03:06
Labs
Hgb 11.1 g/dL (12.0-16.0) L 03/05/24 03:06
Hct 33.0 % (37.0-47.0) L 03/05/24 03:06
Plt Count 251 10^3/uL (130-400) 03/05/24 03:06
Sodium 132 mmol/L (135-145) L 03/05/24 03:06
Potassium 3.8 mmol/L (3.5-5.1) 03/05/24 03:06
BUN 16 mg/dl (7-17) 03/05/24 03:06
Creatinine 0.5 mg/dL (0.6-1.0) L 03/05/24 03:06
Glucose 85 mg/dl (70-99) 03/05/24 03:06
Troponins
03/04/24
17:42
Troponin I < 0.012
Vital Signs and I&O:
Vital Signs
Temp Pulse Resp BP Pulse Ox
97.8 F 109 20 110/79 98
03/06/24 06:54 03/06/24 05:00 03/06/24 06:54 03/06/24 04:33 03/06/24 06:54
Vital Signs
Temp Pulse Resp BP Pulse Ox
97.8 F 109 20 110/79 98
03/06/24 06:54 03/06/24 05:00 03/06/24 06:54 03/06/24 04:33 03/06/24 06:54
Intake & Output
03/04/24 03/05/24 03/06/24 03/07/24
06:59 06:59 06:59 06:59
Intake Total 720 / 720
Output Total 3400 / 3400 600 / 600
Balance -3400 / -3400 120 / 120
Physical Exam
Physical Exam
GEN: NAD
HEENT: MMM
LUNGS: RA. No audible wheeze
CV: Aflutter on tele.
ABD: ND
EXT: Trace edema of B/L LE
NEURO: Gross non-focal
SKIN: No rash
[2024-03-06] MEDS: AZULFIDINE 1000 MG PO ×2 (07:33→20:20)
[2024-03-06] MEDS: TOPROL XL 100 MG PO ×2 (07:34→20:25)
[2024-03-06] MEDS: CARDIZEM CD 120 MG PO (07:34)
[2024-03-06] MEDS: PLAQUENIL 400 MG PO (07:34)
[2024-03-06] MEDS: PACERONE 200 MG PO ×2 (07:37→20:24)
[2024-03-06] MEDS: ELIQUIS 5 MG PO ×2 (07:37→20:20)
[2024-03-06] MEDS: CELLCEPT 1500 MG PO ×2 (07:38→20:20)
[2024-03-06] MEDS: HYDROPHOR 1 APPLIC TOPICAL (07:44)
[2024-03-06] MEDS: LASIX 20 MG IV ×2 (07:44→15:33)
--- NOTE | 2024-03-06 09:49 | PN.CDI ---
CDI
- -
CDI:
Physician Documentation Request
Admit Date: 03/05/24 01:48
Dear Doctor Daniel,
Patient admitted for acute heart failure.
ED Physician Documentation: 'history of acute systolic heart failure'
03/05 Cardiology Consult: 'PMHx HFrEF (EF 45%)...Acute HFmrEF, EF 43% by echo 02/08/24'
03/05 Echo Report: 'LV ejection fraction is 50-55% by visual assessment.'
03/05 Hospitalist PN: 'Acute CHF preserved EF.'
Please provide further specificity regarding the most likely type and acuity of CHF you are evaluating, treating or monitoring.
Type Acuity
Systolic Acute
Diastolic Chronic
Combined Systolic/Diastolic Acute on Chronic
Other Unable to Determine
Unable to Determine
Use of terms such as suspected, likely, concern for, or probable (associated with a specific diagnosis that is being evaluated, monitored, or treated as if it exists) are acceptable and can be coded in the inpatient setting, when documented at the
time of discharge.
Thank you,
Shaneka Daily RN, BSN
CDI Specialist
Available via [place] text
Please use your independent medical judgment in providing your response.
[2024-03-06] MEDS: LASIX 40 MG IV (10:55)
--- NOTE | 2024-03-06 12:01 | W.PN.HOSP.TC ---
Today's Communication/Plan
-
Continue IV diuresis
For GERARD cardioversion on 02/07
Assessment / Plan
Assessment / Plan
Impression:
Patient is an 79y F with PMH significant for IPF, HTN, RA and hyponatremia who presents to ED for evaluation of weakness, edema, dyspnea, etc.
Acute CHF preserved EF.
Atrial flutter with rapid ventricular response.
Fall at home
Other conditions:
Chronic hyponatremia
IPF
Benign hypertension
Rheumatoid arthritis
Autoimmune hepatitis with cirrhosis
Anemia of chronic disease.
Plan:
Acute CHF preserved EF
Repeated echocardiogram on 03/05: LVEF improved at 50-55%. Moderate MR. Moderate TR. Improved and now trivial pericardial effusion.
- Edema significantly increased from prior admission per notes.
- Weight gain of about 5 kg since that time (if scales accurate).
- BNP significantly increased from recent prior.
- Patient with borderline low BP and complains of lightheadedness with standing / activity.
- May require med adjustments / midodrine / etc to facilitate effective diuresis.
- Lasix 80mg x 1 given in the ED -- monitor for effect.
- Continue IV diuresis
- Follow I/Os, daily weights, etc.
- Monitor for improvement in symptoms.
- Repeat Echo given recent pericardial effusion to rule out increase / tamponade / etc.
- Cardiology evaluation for additional recommendations.
Atrial flutter.
Rate control suboptimal.
Continue metoprolol and amiodarone. Added diltiazem 120 mg p.o. twice daily. Monitor blood pressure.
Not on anticoagulation prior to admission
Eliquis initiation by cardiology on 03/05
Plan is for GERARD cardioversion on 03/07
Fall at Home
- Bruising of the L face noted following fall.
- Details of fall are unclear - monitor on tele overnight for rule out arrhythmia.
- PT / OT evals in the AM.
- CT scan done in the ED (of the face) shows no fracture
Chronic Hyponatremia
- Stable. Na levels are consistent with recent baseline at 130.
- Follow for changes with IV diuresis.
- Received 3% saline and Samsca during recent admission.
IPF
- Stable. Chronic changes on CXR / exam.
- s/p recent steroid course for treatment of suspect flare.
- Observe off of additional steroids for now.
- Follow for improvement in dyspnea / symptoms with fluid management as noted above.
Benign Hypertension
- BP very well controlled / borderline low at present.
- Continue current medications with holding parameters.
- Adjust as needed to avoid hypotension.
Rheumatoid Arthritis
AIH / Cirrhosis
- No new complaints / joint pains / etc.
- Continue current med regimen without changes.
Anemia of Chronic Disease
- Stable. Hgb at / near known baseline.
- Follow for any changes.
DVT Prophylaxis: Subcut Heparin
Code Status: Full
Anticipated Discharge: 24 - 48 hours
Subjective/Interval History
-
Date of Service: March 06, 2024
Objective Data
-
Labs:
Laboratory Results
03/06/24
10:16
Sodium Pending
Potassium Pending
Chloride Pending
Carbon Dioxide Pending
BUN Pending
Creatinine Pending
Glucose Pending
Calcium Pending
Vital Signs:
Vital Signs
Temp Pulse Resp BP Pulse Ox
97.9 F 112 20 92/54 96
03/06/24 11:46 03/06/24 11:48 03/06/24 11:46 03/06/24 11:48 03/06/24 11:46
I&O
03/05/24 03/06/24 03/07/24
06:59 06:59 06:59
Intake Total 720 / 720
Output Total 3400 / 3400 600 / 600
Balance -3400 / -3400 120 / 120
Physical Exam
-
General: Well Developed and No Apparent Distress
HEENT: Normocephalic, Atraumatic and Moist Mucous Membranes
Respiratory: Clear to Auscultation
Cardiac: Regular Rhythm and S1/S2; Negative Murmur, Rub or Gallop
GI: Soft, Nontender, Nondistended and Normal Bowel Sounds; Negative Organomegaly
Rectal: Deferred by Provider
Musculoskeletal: No Clubbing, No Cyanosis and No Edema
Skin: Negative Rash
Neuro: Nonfocal/Grossly Intact
--- NOTE | 2024-03-06 16:26 | CM ---
Addendum entered by Mary Beth Bliss 03/07/24 14:52:
Received call from [facility], that the auth is going to the [employer]. Await decision.
Original Note:
Reviewed chart. Received telephone call from [facility] Admissions who confirms ability to accept. [facility] will have a bed on Sunday after 3:00 p.m. if medically stable. Telephone call to [facility] Case Management to start pre-cert number.
The pended reference number is [id number]. Will need to send therapy note for auth. Medical work-up in progress. The discharge plan is to go to [facility] if approved by insurance when medically stable.
--- NOTE | 2024-03-06 16:57 | PTCARENOTE ---
Pt received this am in Aflutter, rate in the 100's to 114. Denies any pain or sob. Assisted oob to the BR and chair. Gait steady with one assist and the walker. Room air sat 97%.
[2024-03-06 17:21] LABS: Blood Urea Nitrogen 18 mg/dl (7-17); Calcium 8.6 mg/dl (8.4-10.2); Carbon Dioxide 32 mmol/L (22-30); Chloride 89 mmol/L (98-107); Estimated Creatinine Clearance 74 ml/min; Glucose 112 mg/dl (70-99); Sodium 127 mmol/L (135-145); eGFR > 60.00
[2024-03-06] MEDS: CARDIZEM CD PO (20:25)
[2024-03-07] VITALS (14 sets, daily range): BP systolic 83–107; BP diastolic 51–72; BMI 22.8
[2024-03-07 04:47] LABS: Hematocrit 31.6 % (37.0-47.0); Hemoglobin 10.7 g/dL (12.0-16.0); Mean Corp Hgb Conc. 33.9 g/dL (33.0-37.0); Mean Corpuscular Hgb 30.2 pg (27.0-31.0); Mean Corpuscular Volume 89.3 fL (81.0-99.0); Mean Platelet Volume 9.6 fL (7.4-10.4); Platelet Count 241 10^3/uL (130-400); Red Blood Cell Count 3.54 10^6/uL (4.20-5.40); Red Cell Dist. Width 16.2 % (11.5-14.5); White Blood Cell Count 5.3 10^3/uL (4.8-10.8)
[2024-03-07 05:11] LABS: Blood Urea Nitrogen 15 mg/dl (7-17); Calcium 8.3 mg/dl (8.4-10.2); Carbon Dioxide 30 mmol/L (22-30); Chloride 90 mmol/L (98-107); Estimated Creatinine Clearance 74 ml/min; Glucose 93 mg/dl (70-99); Potassium 3.9 mmol/L (3.5-5.1); Sodium 127 mmol/L (135-145); eGFR > 60.00
--- NOTE | 2024-03-07 06:13 | PTCARENOTE ---
Pt AAOx1 confused. Safety measures in place. Aflatter on monitor. Denies pain or SOB. NPO after midnight for GERARD and CV.
--- NOTE | 2024-03-07 08:50 | PTCARENOTE ---
Report given to Maggie in the EP lab; pt transported via wheelchair to construction or leak gang laborer. Daughter in pt's rm waiting.
--- NOTE | 2024-03-07 08:53 | PTCARENOTE ---
Assumed care of pt from prev nsg shift; Pt AAOx1-2, pt mildly confused to date & place, but easily reoriented. Pt w/no c/o Cp or SOB. Pt w/BP stable at 107/72 this AM; Pt's HR elevated in the 110's-MD aware. Pt is Afib/Aflutter on telemetry
monitoring. Pt NPO awaiting GERARD/CV for today. Bed & chair alarms in place for safety. Pt w/call banda within reach & plan of care ongoing.
[2024-03-07] MEDS: ELIQUIS 5 MG PO ×2 (09:50→19:38)
--- NOTE | 2024-03-07 09:53 | W.PN.CARDCBS ---
Addendum entered and electronically signed by Kendall Mathews MD 03/07/24 14:22:
I saw and examined the patient.
The Vocational Rehabilitation Supervisor's note was reviewed and I agree with the note.
Comment: Briefly, 79-year-old woman presenting after a fall and found to be in acute decompensated heart failure and rapid atrial flutter
In regards to her atrial flutter, rates were difficult to control and therefore she underwent GERARD/direct-current cardioversion earlier today to restore normal sinus rhythm
Would continue amiodarone to maintain sinus rhythm
Decrease metoprolol to 50 mg twice daily and monitor heart rate
Eliquis for cardioembolic prophylaxis
Known history of heart failure with mildly reduced ejection fraction
Receiving IV Lasix here
Plan to switch to p.o. Lasix 20 mg daily starting tomorrow
Cont metoprolol, unlikely to tolerate additional GDMT due to marginal blood pressure
We will sign off, please recall as needed
Outpatient follow-up to be arranged
Original Note:
Today's Communication / Plan
-
Continue lasix
Continue amiodarone 200mg BID
Stop diltiazem.
Continue metoprolol, but follow HR. May need to reduce dose.
Impression / Plan
-
PCP Dr. Jun Gabriel
Card: Dr. HERMES Gómez
Impression:
Admitted with unwitnessed fall with facial injury and acute HF 03/04/24
Unwitnessed fall with left cheek ecchymosis 03/04/24 AM
Acute HFmrEF, EF 43% by echo 02/08/24
Moderate pericardial effusion
Persistent typical atrial flutter
Not chronically anticoagulated due to pericardial effusion and h/o falls
Hyponatremia
Recent admission for PNA, new a flutter and acute HF 02/06/2024 until 02/16/2024
Moderate aortic stenosis
h/o Pulmonary fibrosis
h/o rheumatoid arthritis
h/o Hepatitis C/cirrhosis
h/o HTN
Osteoporosis
Mild cognitive defects
Echo 02/08/2024: EF 43%, moderate with mean gradient of 12 mmHg aortic valve area 1.1 cm, moderate pericardial effusion
Echo 02/11/2024: EF 40 to 45%, moderate pericardial effusion without evidence of hemodynamic compromise, compared to echo 02/08/2024 there are no significant changes
Plan:
-Presented after unwitnessed fall. Admitted with acute heart failure exacerbation.
-Diuresing with IV lasix 20mg BID. Creat stable at 0.5. Weight down another 2lbs overnight, down at least 7lbs this admission. Down to 149 lbs on 03/07.
-Unknown dry weight, but daughter and patient feel she is close. Still appears volume overloaded. Would continue diuresis.
-Echo 02/10 noted EF 40-45% with moderate pericardial effusion. Continues on Toprol 100mg BID. No MONIKA/ARB/spironolactone due to hypotension.
-Will have CM assess the cost of Farxiga 10mg daily.
-Underwent successful GERARD/CV this AM w/ catholic of SR. Remains in SR on review of tele, HRs in 50s.
-Ordered Cardizem 120mg BID, however has not been able to get consistent dosing due to hypotension. Will stop given bradycardia. May also need to reduce dose of metoprolol.
-Continue amiodarone 200mg BID while admitted, decrease to 200mg daily at discharge.
-Continues on Eliquis 5mg BID, started on 03/05/2024.
-Patient also noted to have history of rheumatoid arthritis and is chronically on sulfasalazine, CellCept and hydroxychloroquine
-Follow up arranged.
HPI: Patient came to ER yesterday from the cardiology office after hospital follow-up office visit for CHF and is now being admitted with recurrent CHF and fall and cardiology has been consulted. Patient was just admitted from 02/06/2024 until
02/16/2024 with acute hypoxic respiratory insufficiency in the setting of PNA, known IPF and also new acute HF. During that admission patient was diuresed with Lasix and was also seen in consultation by nephrology and given doses of Samsca and
hypertonic saline. Patient was noted to be in newly diagnosed typical atrial flutter and there was consideration for rhythm control strategy, but on TTE she was found to have a moderate-sized pericardial effusion. Pericardial effusion was stable
on serial echoes that admission and decision was made not to proceed with pericardiocentesis due to stable effusion. Patient was ultimately discharged to home on Lasix 20 mg daily and was seen in the office yesterday for hospital follow-up. When
patient presented to the office she had obvious swelling and ecchymosis of her left cheek and admitted that she had fallen in her apartment prior to coming to the office, but denied any prodrome and says that she had no idea she was going to fall
and woke up on the floor. Of additional concern was patient's increased LE edema and SOB. Patient was taken to ER after her OV and is now admitted with acute HF. Patient reports minimal symptomatic improvement overnight and has ongoing LE
edema.
Progress Note - Network Operations Specialist
Subjective
Date of Service: March 07, 2024
Feeling tired post CV. Some lightheadedness. No SOB.
Objective
Labs:
03/07/24 04:12
03/07/24 04:12
Labs
Hgb 10.7 g/dL (12.0-16.0) L 03/07/24 04:12
Hct 31.6 % (37.0-47.0) L 03/07/24 04:12
Plt Count 241 10^3/uL (130-400) 03/07/24 04:12
Sodium 127 mmol/L (135-145) L 03/07/24 04:12
Potassium 3.9 mmol/L (3.5-5.1) 03/07/24 04:12
BUN 15 mg/dl (7-17) 03/07/24 04:12
Creatinine 0.5 mg/dL (0.6-1.0) L 03/07/24 04:12
Glucose 93 mg/dl (70-99) 03/07/24 04:12
Troponins
03/04/24
17:42
Troponin I < 0.012
Vital Signs and I&O:
Vital Signs
Temp Pulse Resp BP Pulse Ox
97.8 F 110 20 107/72 97
03/07/24 06:54 03/07/24 07:00 03/07/24 06:54 03/07/24 06:56 03/07/24 06:56
Vital Signs
Temp Pulse Resp BP Pulse Ox
97.8 F 110 20 107/72 97
03/07/24 06:54 03/07/24 07:00 03/07/24 06:54 03/07/24 06:56 03/07/24 06:56
Intake & Output
03/05/24 03/06/24 03/07/24 03/08/24
06:59 06:59 06:59 06:59
Intake Total 720 / 720 150 / 150
Output Total 3400 / 3400 600 / 600 2400 / 2400
Balance -3400 / -3400 120 / 120 -2250 / -2250
Physical Exam
Physical Exam
GEN: NAD
HEENT: MMM
LUNGS: Scattered crackles.
CV: Reg, S1/S2, no rubs or gallops, 1/6 syst murmur
EXT: No clubbing or cyanosis. Trace edema of B/L LE
NEURO: Gross non-focal
SKIN: Warm, dry, no rash
[2024-03-07] MEDS: CARDIZEM CD PO (11:36)
[2024-03-07] MEDS: TOPROL XL PO (11:37)
--- NOTE | 2024-03-07 11:47 | PTCARENOTE ---
Rec'd report back from Maggie in the EP lab; Rec'd pt back AAOX2, a little confused to time, but easily reoriented. Pt w/c/o CP or SOB. Pt's BP low at 80's-90's/50's, HR in the 50's. Pt is now SB w/1st deg AV block on telemetry monitoring. PA in to
see pt. Pt bedrest for now. Pt w/call banda within reach & daughter at bedside.
[2024-03-07] MEDS: HYDROPHOR 1 APPLIC TOPICAL (12:00)
[2024-03-07] MEDS: LASIX IV (12:19)
--- NOTE | 2024-03-07 13:28 | W.PN.HOSP.TC ---
Today's Communication/Plan
-
Post cardioversion today
Continue IV diuresis
Monitor sodium level closely.
Adjust rate control medications
PT
Assessment / Plan
Assessment / Plan
Impression:
Patient is an 79y F with PMH significant for IPF, HTN, RA and hyponatremia who presents to ED for evaluation of weakness, edema, dyspnea, etc.
Acute CHF preserved EF.
Atrial flutter with rapid ventricular response.
Fall at home
Other conditions:
Chronic hyponatremia
IPF
Benign hypertension
Rheumatoid arthritis
Autoimmune hepatitis with cirrhosis
Anemia of chronic disease.
Plan:
Acute CHF preserved EF
Repeated echocardiogram on 03/05: LVEF improved at 50-55%. Moderate MR. Moderate TR. Improved and now trivial pericardial effusion.
- Edema significantly increased from prior admission per notes.
- Weight gain of about 5 kg since that time (if scales accurate).
- BNP significantly increased from recent prior.
- Patient with borderline low BP and complains of lightheadedness with standing / activity.
- May require med adjustments / midodrine / etc to facilitate effective diuresis.
- Lasix 80mg x 1 given in the ED -- monitor for effect.
- Continue IV diuresis with Lasix 20 mg twice daily
- Follow I/Os, daily weights, etc.
- Monitor for improvement in symptoms.
Atrial flutter.
Rate control suboptimal.
Continue metoprolol and amiodarone. Added diltiazem 120 mg p.o. twice daily. Monitor blood pressure.
Not on anticoagulation prior to admission
Status post GERARD cardioversion on 03/07 with spiritism of sinus rhythm.
BP soft
Agree with discontinuation of Cardizem.
May require lower dose of metoprolol.
Continue amiodarone
Eliquis initiation by cardiology on 03/05
Fall at Home
- Bruising of the L face noted following fall.
- Details of fall are unclear - monitor on tele overnight for rule out arrhythmia.
- PT / OT evals in the AM.
- CT scan done in the ED (of the face) shows no fracture
Chronic Hyponatremia
- Stable. Sodium plateau at 127 for the last 48 hours while on IV Lasix.
- Follow for changes with IV diuresis.
- Received 3% saline and Samsca during recent admission.
IPF
- Stable. Chronic changes on CXR / exam.
- s/p recent steroid course for treatment of suspect flare.
- Observe off of additional steroids for now.
- Follow for improvement in dyspnea / symptoms with fluid management as noted above.
Benign Hypertension
- BP very well controlled / borderline low at present.
- Continue current medications with holding parameters.
- Adjust as needed to avoid hypotension.
Rheumatoid Arthritis
AIH / Cirrhosis
- No new complaints / joint pains / etc.
- Continue current med regimen without changes. Sulfasalazine, hydroxychloroquine, CellCept
Anemia of Chronic Disease
- Stable. Hgb at / near known baseline.
- Follow for any changes.
DVT Prophylaxis: Subcut Heparin
Code Status: Full
Anticipated Discharge: 24 - 48 hours
Subjective/Interval History
-
Date of Service: March 07, 2024
Objective Data
-
Labs:
Laboratory Results
03/07/24
04:12
WBC 5.3
Hgb 10.7 L
Hct 31.6 L
Plt Count 241
Sodium 127 L
Potassium 3.9
Chloride 90 L
Carbon Dioxide 30
BUN 15
Creatinine 0.5 L
Glucose 93
Calcium 8.3 L
Vital Signs:
Vital Signs
Temp Pulse Resp BP Pulse Ox
96.4 F L 55 20 91/54 97
03/07/24 11:24 03/07/24 11:37 03/07/24 11:24 03/07/24 11:36 03/07/24 11:24
I&O
03/06/24 03/07/24 03/08/24
06:59 06:59 06:59
Intake Total 720 / 720 150 / 150 360 / 360
Output Total 600 / 600 2400 / 2400
Balance 120 / 120 -2250 / -2250 360 / 360
Physical Exam
-
General: Well Developed and No Apparent Distress
HEENT: Normocephalic, Atraumatic and Moist Mucous Membranes
Respiratory: Clear to Auscultation
Cardiac: Regular Rhythm and S1/S2; Negative Murmur, Rub or Gallop
GI: Soft, Nontender, Nondistended and Normal Bowel Sounds; Negative Organomegaly
Rectal: Deferred by Provider
Musculoskeletal: No Clubbing, No Cyanosis and No Edema
Skin: Negative Rash
Neuro: Nonfocal/Grossly Intact
[2024-03-07] MEDS: PLAQUENIL 400 MG PO (15:06)
[2024-03-07] MEDS: CELLCEPT 1500 MG PO ×2 (15:07→19:38)
[2024-03-07] MEDS: AZULFIDINE 1000 MG PO ×2 (15:07→19:38)
[2024-03-07] MEDS: LASIX 20 MG IV (15:08)
[2024-03-07] MEDS: PACERONE 200 MG PO (15:08)
[2024-03-07] MEDS: FLUSH (NSS) 2 FLUSH IV (15:11)
--- NOTE | 2024-03-07 15:35 | CM ---
Addendum entered by Mary Beth Bliss 03/07/24 16:49:
Received telephone call from [employer] who states director of outside sales has intent to deny SNF/Rehab. Stay. Can do P2P with Dr. Nishi Lan, ([phone] before noon on Sunday. Phone number is [phone] option 2.
Original Note:
Reviewed chart. Met with Mrs. Hanks and her daughter to review discharge plans. Received telephone call from [facility] Liaison who states she will have a bed available if approved by insurance, Telephone call to [facility] to start the pre-cert
process. The pended auth number is [id number]. Sent clinical information to [facility]. Received call back from [facility] who states the case has to go to the nuclear medical technologist. Telephone call to her insurance to check on co-pay for Farxiga 10 mg po
daily. Her co-pay for the first script would be $252.24 until her deductible has been met. After her deductible has been met her co-pay would be $60.00 a month. Reviewed co-pay information with Mrs. Hanks and her daughter. They are agreeable to
the co-pay. Placed the one month free coupon in his red discharge folder. Medical work-up in progress. The discharge plan is to go to [facility] if approved by insurance when medically stable.
[2024-03-07] MEDS: TOPROL XL 50 MG PO (19:39)
--- NOTE | 2024-03-07 20:43 | PTCARENOTE ---
Patient received at change of shift resting in the chair. Patient denies pain at this time, only complaint is feeling tired. Patient alert to self only, bed and chair alarm in place. Patient ambulated to BR with minimal assistance then to the bed.
Call banda within reach. Sinus rhythm to sinus kee on social media marketing manager with a first degree AV block. Call banda within reach. Care ongoing.
[2024-03-08] VITALS (9 sets, daily range): BP systolic 90–117; BP diastolic 44–60; PULSE 57–61; BMI 23.1
--- NOTE | 2024-03-08 08:25 | PTCARENOTE ---
Addendum entered by Kaylee Dominique RN 03/09/24 22:13:
BP 117/56
Original Note:
Assumed care of pt from prev nsg shift; Pt AAOx1-2, pt mildly confused to date & place, but easily reoriented. Pt w/no c/o Cp or SOB. Pt w/BP stable at 1117/56 this AM; Pt's HR in the 50's. Pt is SB w/1deg AVB on telemetry monitoring. Bed & chair
alarms in place for safety. Pt w/call banda within reach & plan of care ongoing.
[2024-03-08] MEDS: ELIQUIS 5 MG PO ×2 (09:04→21:45)
[2024-03-08] MEDS: AZULFIDINE 1000 MG PO ×2 (09:04→21:45)
[2024-03-08] MEDS: CELLCEPT 1500 MG PO ×2 (09:04→21:45)
[2024-03-08] MEDS: HYDROPHOR 1 APPLIC TOPICAL (09:04)
[2024-03-08] MEDS: PLAQUENIL 400 MG PO (09:05)
[2024-03-08] MEDS: LASIX 20 MG PO (09:05)
[2024-03-08] MEDS: TOPROL XL PO ×2 (09:06→21:46)
[2024-03-08] MEDS: PACERONE 200 MG PO (09:06)
--- NOTE | 2024-03-08 13:19 | W.PN.HOSP.TC ---
Today's Communication/Plan
-
Monitor vital signs see plan
Continue to monitor sodium
Continue with diuresis
Continue amiodarone
Metoprolol decreased
Assessment / Plan
Assessment / Plan
Impression:
Patient is an 79y F with PMH significant for IPF, HTN, RA and hyponatremia who presents to ED for evaluation of weakness, edema, dyspnea, etc.
Acute CHF preserved EF.
Atrial flutter with rapid ventricular response.
Fall at home
Other conditions:
Chronic hyponatremia
IPF
Benign hypertension
Rheumatoid arthritis
Autoimmune hepatitis with cirrhosis
Anemia of chronic disease.
Plan:
Acute CHF preserved EF
Repeated echocardiogram on 03/05: LVEF improved at 50-55%. Moderate MR. Moderate TR. Improved and now trivial pericardial effusion.
- Edema significantly increased from prior admission per notes.
- Weight gain of about 5 kg since that time (if scales accurate).
- BNP significantly increased from recent prior.
- Patient with borderline low BP and complains of lightheadedness with standing / activity.
- May require med adjustments / midodrine / etc to facilitate effective diuresis.
- Lasix 80mg x 1 given in the ED -- monitor for effect.
Now on p.o. Lasix
- Follow I/Os, daily weights, etc.
- Monitor for improvement in symptoms.
Atrial flutter.
Rate control suboptimal.
Continue metoprolol and amiodarone. Added diltiazem 120 mg p.o. twice daily. Monitor blood pressure.
Not on anticoagulation prior to admission
Status post GERARD cardioversion on 03/07 with scientology of sinus rhythm.
BP soft
Agree with discontinuation of Cardizem.
May require lower dose of metoprolol. Metoprolol lowered to 50 mg twice
Continue amiodarone
Eliquis initiation by cardiology on 03/05
Fall at Home
- Bruising of the L face noted following fall.
- Details of fall are unclear - monitor on tele overnight for rule out arrhythmia.
- PT / OT recommending SNF
- CT scan done in the ED (of the face) shows no fracture
Chronic Hyponatremia
- Stable. Sodium plateau at 127 for the last 48 hours while on IV Lasix.
- Follow for changes with IV diuresis.
- Received 3% saline and Samsca during recent admission.
Recheck BMP
IPF
- Stable. Chronic changes on CXR / exam.
- s/p recent steroid course for treatment of suspect flare.
- Observe off of additional steroids for now.
- Follow for improvement in dyspnea / symptoms with fluid management as noted above.
Benign Hypertension
- BP very well controlled / borderline low at present.
- Continue current medications with holding parameters.
- Adjust as needed to avoid hypotension.
Rheumatoid Arthritis
AIH / Cirrhosis
- No new complaints / joint pains / etc.
- Continue current med regimen without changes. Sulfasalazine, hydroxychloroquine, CellCept
Anemia of Chronic Disease
- Stable. Hgb at / near known baseline.
- Follow for any changes.
DVT Prophylaxis: Subcut Heparin
Code Status: Full
General: Well Developed and No Apparent Distress
HEENT: Normocephalic, Atraumatic and Moist Mucous Membranes
Respiratory: Clear to Auscultation
Cardiac: Regular Rhythm and S1/S2; Negative Murmur, Rub or Gallop
GI: Soft, Nontender, Nondistended and Normal Bowel Sounds
Rectal: Deferred by Provider
Musculoskeletal: No Clubbing, No Cyanosis and No Edema
Skin: Negative Rash
Neuro: Nonfocal/Grossly Intact
Anticipated Discharge: Within 24 hours
Subjective/Interval History
-
Date of Service: March 08, 2024
denies pain
Objective Data
-
Vital Signs:
Vital Signs
Temp Pulse Resp BP Pulse Ox
97.2 F 57 18 90/49 92
03/08/24 11:39 03/08/24 12:00 03/08/24 11:39 03/08/24 11:40 03/08/24 11:39
I&O
03/07/24 03/08/24 03/09/24
06:59 06:59 06:59
Intake Total 150 / 150 840 / 840 240 / 240
Output Total 2400 / 2400 300 / 300
Balance -2250 / -2250 540 / 540 240 / 240
--- NOTE | 2024-03-08 20:04 | PTCARENOTE ---
Continued care of pt from this AM; Pt AAOx1-2, pt is pleasantly confused to time & place. Requiring freq reorientation. Pt w/no c/o pain or SOB. Assessment unchanged except for pt being nauseous, w/episode of vomiting x1 after eating a late dinner
this evening. Pt assisted w/cleaning up & back to bed. Pt declining anything for her nausea. Pt w/call banda within reach & no addtl needs at this time.
[2024-03-09] VITALS (8 sets, daily range): BP systolic 93–123; BP diastolic 44–57; BMI 23.2
[2024-03-09 05:02] LABS: Blood Urea Nitrogen 21 mg/dl (7-17); Calcium 8.5 mg/dl (8.4-10.2); Carbon Dioxide 28 mmol/L (22-30); Chloride 91 mmol/L (98-107); Estimated Creatinine Clearance 64 ml/min; Glucose 91 mg/dl (70-99); Potassium 3.7 mmol/L (3.5-5.1); Sodium 127 mmol/L (135-145); eGFR > 60.00
[2024-03-09] MEDS: AZULFIDINE 1000 MG PO ×2 (07:47→20:43)
[2024-03-09] MEDS: LASIX 20 MG PO (07:47)
[2024-03-09] MEDS: PLAQUENIL 400 MG PO (07:47)
[2024-03-09] MEDS: TOPROL XL PO (07:47)
[2024-03-09] MEDS: HYDROPHOR 1 APPLIC TOPICAL (07:48)
[2024-03-09] MEDS: PACERONE 200 MG PO (07:48)
[2024-03-09] MEDS: CELLCEPT 1500 MG PO ×2 (07:48→20:43)
[2024-03-09] MEDS: ELIQUIS 5 MG PO ×2 (07:48→20:42)
--- NOTE | 2024-03-09 07:51 | PTCARENOTE ---
Assumed care of pt from night monitor RN. Pt oriented to self. Confused to time, place and situation. Easily reoriented. Bed/chair alarm in place for fall risk. NSR/SB on engine monitor. VSS. Assessment documented. Pt resting in bed with call banda in
reach.
[2024-03-09 10:36] LABS: Osmolality Serum 277 mOsm/kg (275-300)
[2024-03-09 12:45] LABS: Osmolality Urine 356 mOsm/kg (300-900)
[2024-03-09 12:51] LABS: Urine Sodium 24 mmol/L (30-90)
--- NOTE | 2024-03-09 13:33 | W.PN.HOSP.TC ---
Today's Communication/Plan
-
Monitor vital signs see plan
Monitor sodium
PT/OT
Continue with Lasix
Assessment / Plan
Assessment / Plan
Impression:
Patient is an 79y F with PMH significant for IPF, HTN, RA and hyponatremia who presents to ED for evaluation of weakness, edema, dyspnea, etc.
Acute CHF preserved EF.
Atrial flutter with rapid ventricular response.
Fall at home
Other conditions:
Chronic hyponatremia
IPF
Benign hypertension
Rheumatoid arthritis
Autoimmune hepatitis with cirrhosis
Anemia of chronic disease.
Plan:
Acute CHF preserved EF
Repeated echocardiogram on 03/05: LVEF improved at 50-55%. Moderate MR. Moderate TR. Improved and now trivial pericardial effusion.
- Edema significantly increased from prior admission per notes.
- Weight gain of about 5 kg since that time (if scales accurate).
- BNP significantly increased from recent prior.
- Patient with borderline low BP and complains of lightheadedness with standing / activity.
- May require med adjustments / midodrine / etc to facilitate effective diuresis.
- Lasix 80mg x 1 given in the ED -- monitor for effect.
Now on p.o. Lasix
- Follow I/Os, daily weights, etc.
- Monitor for improvement in symptoms.
Atrial flutter.
Rate control suboptimal.
Continue metoprolol and amiodarone. Added diltiazem 120 mg p.o. twice daily. Monitor blood pressure.
Not on anticoagulation prior to admission
Status post GERARD cardioversion on 03/07 with adventist of sinus rhythm.
BP soft
Agree with discontinuation of Cardizem.
May require lower dose of metoprolol. Metoprolol lowered to 50 mg twice
Continue amiodarone
Eliquis initiation by cardiology on 03/05
Fall at Home
- Bruising of the L face noted following fall.
- Details of fall are unclear - monitor on tele overnight for rule out arrhythmia.
- PT / OT recommending SNF
- CT scan done in the ED (of the face) shows no fracture
Chronic Hyponatremia
- Stable. Sodium 127
Urine and serum studies noted, fluid restriction
- Follow for changes with IV diuresis.
- Received 3% saline and Samsca during recent admission.
Recheck BMP
IPF
- Stable. Chronic changes on CXR / exam.
- s/p recent steroid course for treatment of suspect flare.
- Observe off of additional steroids for now.
- Follow for improvement in dyspnea / symptoms with fluid management as noted above.
Benign Hypertension
- BP very well controlled / borderline low at present.
- Continue current medications with holding parameters.
- Adjust as needed to avoid hypotension.
Rheumatoid Arthritis
AIH / Cirrhosis
- No new complaints / joint pains / etc.
- Continue current med regimen without changes. Sulfasalazine, hydroxychloroquine, CellCept
Anemia of Chronic Disease
- Stable. Hgb at / near known baseline.
- Follow for any changes.
DVT Prophylaxis: Subcut Heparin
Code Status: Full
General: Well Developed and No Apparent Distress
HEENT: Normocephalic, Atraumatic and Moist Mucous Membranes
Respiratory: Clear to Auscultation
Cardiac: Regular Rhythm and S1/S2; Negative Murmur, Rub or Gallop
GI: Soft, Nontender, Nondistended and Normal Bowel Sounds
Musculoskeletal: No Edema
Neuro: Nonfocal/Grossly Intact
PT/OT rec SNF; appears as insurance denied. Would need p2p 2/3
Anticipated Discharge: Within 24 hours
Subjective/Interval History
-
Date of Service: March 09, 2024
Denies pain
Objective Data
-
Labs:
Laboratory Results
03/09/24
04:25
Sodium 127 L
Potassium 3.7
Chloride 91 L
Carbon Dioxide 28
BUN 21 H
Creatinine 0.7
Glucose 91
Calcium 8.5
Vital Signs:
Vital Signs
Temp Pulse Resp BP Pulse Ox
97.6 F 60 20 107/55 100
03/09/24 12:10 03/09/24 12:09 03/09/24 12:10 03/09/24 12:09 03/09/24 12:10
I&O
03/08/24 03/09/24 03/10/24
06:59 06:59 06:59
Intake Total 840 / 840 240 / 240 120 / 120
Output Total 300 / 300 200 / 200 350 / 350
Balance 540 / 540 40 / 40 -230 / -230
--- NOTE | 2024-03-09 19:45 | PTCARENOTE ---
Assumed care of pt from prev nsg shift; Pt AAOx1-2, pt confused to date & place, but easily reoriented. Pt w/no c/o Cp or SOB. Pt w/BP stable at 100/44 tonight. Pt's HR in the 60's. Pt is SR/SB w/1st deg AVB on telemetry monitoring. Bed & chair
alarms in place for safety. Pt w/call banda within reach & plan of care ongoing.
[2024-03-09] MEDS: TOPROL XL 50 MG PO (20:42)
[2024-03-10] VITALS (10 sets, daily range): BP systolic 98–125; BP diastolic 41–60; PULSE 61–67; O2SAT 99
[2024-03-10] MEDS: HYDROPHOR 1 APPLIC TOPICAL (04:37)
[2024-03-10 04:48] LABS: Blood Urea Nitrogen 18 mg/dl (7-17); Calcium 8.1 mg/dl (8.4-10.2); Carbon Dioxide 30 mmol/L (22-30); Chloride 94 mmol/L (98-107); Estimated Creatinine Clearance 74 ml/min; Glucose 92 mg/dl (70-99); Potassium 3.8 mmol/L (3.5-5.1); Sodium 131 mmol/L (135-145); eGFR > 60.00
[2024-03-10] MEDS: CELLCEPT 1500 MG PO (07:33)
[2024-03-10] MEDS: AZULFIDINE 1000 MG PO (07:34)
[2024-03-10] MEDS: LASIX 20 MG PO (07:34)
[2024-03-10] MEDS: TOPROL XL PO (07:34)
[2024-03-10] MEDS: ELIQUIS 5 MG PO (07:34)
[2024-03-10] MEDS: PLAQUENIL 400 MG PO (07:34)
[2024-03-10] MEDS: PACERONE 200 MG PO (07:34)
--- NOTE | 2024-03-10 12:29 | W.PN.HOSP.TC ---
Today's Communication/Plan
-
Vascular status compensated at this point.
Physical therapy evaluation suggesting skilled rehab pending insurance authorization
Assessment / Plan
Assessment / Plan
Impression:
Patient is an 79y F with PMH significant for IPF, HTN, RA and hyponatremia who presents to ED for evaluation of weakness, edema, dyspnea, etc.
Acute CHF preserved EF.
Atrial flutter with rapid ventricular response.
Fall at home
Other conditions:
Chronic hyponatremia
IPF
Benign hypertension
Rheumatoid arthritis
Autoimmune hepatitis with cirrhosis
Anemia of chronic disease.
Plan:
Acute CHF preserved EF
Repeated echocardiogram on 03/05: LVEF improved at 50-55%. Moderate MR. Moderate TR. Improved and now trivial pericardial effusion.
- Edema significantly increased from prior admission per notes.
- Weight gain of about 5 kg since that time (if scales accurate).
- BNP significantly increased from recent prior.
- Patient with borderline low BP and complains of lightheadedness with standing / activity.
- May require med adjustments / midodrine / etc to facilitate effective diuresis.
Now on p.o. Lasix
- Follow I/Os, daily weights, etc.
- Monitor for improvement in symptoms.
Atrial flutter.
Rate control suboptimal.
Continue metoprolol and amiodarone. Added diltiazem 120 mg p.o. twice daily. Monitor blood pressure.
Not on anticoagulation prior to admission
Status post GERARD cardioversion on 03/07 with yazidism of sinus rhythm.
BP soft
Agree with discontinuation of Cardizem.
May require lower dose of metoprolol. Metoprolol lowered to 50 mg twice
Continue amiodarone
Eliquis initiation by cardiology on 03/05
Fall at Home
- Bruising of the L face noted following fall.
- Details of fall are unclear - monitor on tele overnight for rule out arrhythmia.
- PT / OT recommending SNF
- CT scan done in the ED (of the face) shows no fracture
Chronic Hyponatremia
- Stable. Sodium 127
Urine and serum studies noted, fluid restriction
- Follow for changes with IV diuresis.
- Received 3% saline and Samsca during recent admission.
Recheck BMP
IPF
- Stable. Chronic changes on CXR / exam.
- s/p recent steroid course for treatment of suspect flare.
- Observe off of additional steroids for now.
- Follow for improvement in dyspnea / symptoms with fluid management as noted above.
Benign Hypertension
- BP very well controlled / borderline low at present.
- Continue current medications with holding parameters.
- Adjust as needed to avoid hypotension.
Rheumatoid Arthritis
AIH / Cirrhosis
- No new complaints / joint pains / etc.
- Continue current med regimen without changes. Sulfasalazine, hydroxychloroquine, CellCept
Anemia of Chronic Disease
- Stable. Hgb at / near known baseline.
- Follow for any changes.
DVT Prophylaxis: Subcut Heparin
Code Status: Full
Anticipated Discharge: 24 - 48 hours
Subjective/Interval History
-
Date of Service: March 10, 2024
Objective Data
-
Labs:
Laboratory Results
03/10/24
04:09
Sodium 131 L
Potassium 3.8
Chloride 94 L
Carbon Dioxide 30
BUN 18 H
Creatinine 0.6
Glucose 92
Calcium 8.1 L
Vital Signs:
Vital Signs
Temp Pulse Resp BP Pulse Ox
97.5 F 70 16 98/55 98
03/10/24 07:30 03/10/24 11:12 03/10/24 07:30 03/10/24 11:12 03/10/24 07:30
I&O
03/09/24 03/10/24 03/11/24
06:59 06:59 06:59
Intake Total 240 / 240 120 / 120 400 / 400
Output Total 200 / 200 350 / 350
Balance 40 / 40 -230 / -230 400 / 400
Physical Exam
-
General: Well Developed and No Apparent Distress
HEENT: Normocephalic, Atraumatic and Moist Mucous Membranes
Respiratory: Clear to Auscultation
Cardiac: Regular Rhythm and S1/S2; Negative Murmur, Rub or Gallop
GI: Soft, Nontender, Nondistended and Normal Bowel Sounds; Negative Organomegaly
Rectal: Deferred by Provider
Musculoskeletal: No Clubbing, No Cyanosis and No Edema
Skin: Negative Rash
Neuro: Nonfocal/Grossly Intact
--- NOTE | 2024-03-10 12:34 | CM ---
Addendum entered by Sonja Srivastava RN 03/10/24 13:34:
Approved Skilled Level 1 3-03/16 [facility] to [facility] [phone]. FAX [phone]
Addendum entered by Sonja Srivastava RN 03/10/24 13:00:
Dr Dahl, spoke with the [facility]. Patient approved with [facility] on 03/17/24
Original Note:
Chart reviewed. Patient lives in [facility], uses a wheelchair and a rollator. PT evaluation recommended SNF. [facility] denied authorization to SNF based on patient medical unable to do PT evaluation. PT evaluation done today and
patient was able to perform, PT still recommending SNF. Physician advisor waiting for a callback from [facility] on P2P. Plan is for the patient to go to SNF. CM to follow
--- NOTE | 2024-03-10 13:43 | W.DS.TRANS ---
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
-
Discharge Instructions:
Sleep Apnea Risk Low
Discharge Diagnosis/Procedures Acute diastolic CHF
Atrial fibrillation with rapid ventricular
response
Diet Low Cholesterol
Blood Work -Check BMP in 1 week
Instructions: *DCA Heart Failure Instructions
Stand-Alone Forms:
Changes to Home Medications: Yes
Discharge Medications:
DC Medications w/original date entered in Proficiency
furosemide 20 mg tablet 20 mg PO DAILY Fluid Retention/Swelling 02/06/24
hydroxychloroquine 200 mg tablet 400 mg PO DAILY Autoimmune Disorder 02/06/24
mycophenolate mofetil 500 mg tablet 1,500 mg PO BID Autoimmune Disorder 02/06/24
sulfasalazine 500 mg tablet 1,000 mg PO BID Autoimmune Disorder 02/06/24
prednisone 10 mg tablet See Rx Instructions .Route .COMPLEX #30 tabs 02/15/24
amiodarone 200 mg tablet 200 mg PO DAILY #30 tabs 03/10/24
apixaban 5 mg tablet (Eliquis) 5 mg PO BID #60 tabs 03/10/24
metoprolol succinate 50 mg tablet,extended release 24 hr 50 mg PO BID #60 tabs 03/10/24
Home Medication Changes
Amiodarone dose reduced
Pending Results: No
--- NOTE | 2024-03-10 14:38 | PTCARENOTE ---
IV and tele removed. Discharge paperwork and transfer form faxed and sent w/ pt to [facility]. Pt transferred via wheelchair van.
--- NOTE | 2024-03-11 10:32 | W.HF.CON ---
Heart Failure
- LV Function
Left ventricular function study result: LV Ejection fraction >/= 50%
Ejection Fraction Percentage: 50-55
- ARNI
Patient already on ARNI: No
Heart Failure ARNI Not Indicated: LV Ejection Fraction >/= 40%
- ACEI/ARB
Patient already on ACEI/ARB: No
Heart Failure ACEI/ARB Not Indicated: LV Ejection Fraction > 40%
- Beta Giles
Patient already on Evidence Based Beta Giles: Yes
- Mineralocorticord Receptor Antagonist
Patient already on MRA: No
Heart Failure MRA Not Indicated: LV Ejection Fraction > 40%
- SGLT-2 Inhibitor
Patient already on SGLT-2 Inhibitor: No
Heart Failure SGLT-2 Inhibitor Contraindication: Patient Refusal
- Afib Anticoagulation
Patient already on Anticoagulation for Afib: Yes
- NYHA CHF Classification
NYHA CHF Classification Level: Class III - Symptoms w/ min exertion, interferes w/ nml daily activity
- ACC/AHA Stage
ACC/AHA Stage: Stage C: Symptomatic Heart Failure
== END 2024-03-10 14:42 | DRG 291 ==
LOC: IVU 01:48
PROVIDERS: Internal Medicine; Internal Medicine Cardiovascular Disease; Physician Assistant Medical; Registered Nurse; ADMITTING PHYSICIAN Hospitalist; ATTENDING PHYSICIAN Internal Medicine; EMERGENCY PHYSICIAN Student in an Organized Health Care Education/Training Program; FAMILY PHYSICIAN Internal Medicine; OTHER PHYSICIAN Internal Medicine Cardiovascular Disease
PROC: B24BZZ4 Ultrasonography of Heart with Aorta, Transesophageal (ICD-10-PCS; 2024-03-07)
PROC: 5A2204Z Restoration of Cardiac Rhythm, Single (ICD-10-PCS; 2024-03-07)
DX: I11.0 Hypertensive heart disease with heart failure (principal); I50.31 Acute diastolic (congestive) heart failure; I48.3 Typical atrial flutter; E87.1 Hypo-osmolality and hyponatremia; D84.821 Immunodeficiency due to drugs; I48.20 Chronic atrial fibrillation, unspecified; I31.39 Other pericardial effusion (noninflammatory); W01.0XXA Fall on same level from slipping, tripping and stumbling without subsequent striking against object, initial encounter; J84.112 Idiopathic pulmonary fibrosis; M06.9 Rheumatoid arthritis, unspecified; K75.4 Autoimmune hepatitis; Z79.624 Long term (current) use of inhibitors of nucleotide synthesis; D63.8 Anemia in other chronic diseases classified elsewhere; Z79.01 Long term (current) use of anticoagulants; I08.3 Combined rheumatic disorders of mitral, aortic and tricuspid valves; S00.83XA Contusion of other part of head, initial encounter; Z87.891 Personal history of nicotine dependence; K74.60 Unspecified cirrhosis of liver; Z87.01 Personal history of pneumonia (recurrent); Z79.899 Other long term (current) drug therapy; Z91.81 History of falling; M81.0 Age-related osteoporosis without current pathological fracture
CPT/HCPCS: 93308; 70486; 71046; 80048; 80053; 83880; 83930; 83935; 84300; 84484; 85025; 85027; 87070; 92960; 93005; 93312; 93320; 93321; 93325; 97110; 97112; 97163; 97166; 97530; 97535; 99285